=== PATIENT | male | born 1945 | race Caucasian/White ===

== ENCOUNTER 2020-01-04 08:01 | Outpatient (REF) | payer MEDICARE, SELFPAY ==
[2020-01-11 15:27] LABS: Testosterone, Total 884 ng/dL (250-1100)
== END 2020-01-04 08:02 | disposition home or self-care (01) ==
LOC: HO.LAB 08:01
PROVIDERS: PCP Internal Medicine; Visit Provider Urology
DX: E29.1 Testicular hypofunction (principal)
CPT/HCPCS: 84403; 85610; 99211

== ENCOUNTER → 2020-01-24 09:02 | Outpatient (BNVA) | payer MEDICARE, SELFPAY | PROVIDERS: PCP Internal Medicine; Visit Provider Internal Medicine | DX: I48.20 Chronic atrial fibrillation, unspecified (principal); Z51.81 Encounter for therapeutic drug level monitoring; Z79.01 Long term (current) use of anticoagulants | CPT/HCPCS: 85610; 99211 ==

== ENCOUNTER → 2020-02-21 09:56 | Outpatient (BNVA) | payer MEDICARE, SELFPAY | PROVIDERS: PCP Internal Medicine; Visit Provider Internal Medicine | DX: I48.20 Chronic atrial fibrillation, unspecified (principal); Z51.81 Encounter for therapeutic drug level monitoring; Z79.01 Long term (current) use of anticoagulants | CPT/HCPCS: 85610; 99211 ==

== ENCOUNTER → 2020-03-13 09:18 | Outpatient (BNVA) | payer MEDICARE, SELFPAY | PROVIDERS: PCP Internal Medicine; Visit Provider Internal Medicine | DX: I48.91 Unspecified atrial fibrillation (principal); Z79.01 Long term (current) use of anticoagulants; Z51.81 Encounter for therapeutic drug level monitoring | CPT/HCPCS: 85610; 99211; 99212 ==

== ENCOUNTER → 2020-03-30 09:14 | Outpatient (BNVA) | payer MEDICARE, SELFPAY | PROVIDERS: PCP Internal Medicine; Visit Provider Internal Medicine Cardiovascular Disease | DX: I50.30 Unspecified diastolic (congestive) heart failure (principal); I48.0 Paroxysmal atrial fibrillation | CPT/HCPCS: 93005; 99212 ==

== ENCOUNTER → 2020-04-03 08:08 | Outpatient (BNVA) | payer MEDICARE, SELFPAY | PROVIDERS: PCP Family Medicine; Visit Provider Internal Medicine | DX: I48.20 Chronic atrial fibrillation, unspecified (principal); Z51.81 Encounter for therapeutic drug level monitoring; Z79.01 Long term (current) use of anticoagulants | CPT/HCPCS: 85610; 99211 ==

== ENCOUNTER → 2020-04-12 11:13 | Outpatient (BNVA) | payer MEDICARE, SELFPAY | PROVIDERS: PCP Family Medicine; Visit Provider Urology | DX: E29.1 Testicular hypofunction (principal) | CPT/HCPCS: 99212 ==

== ENCOUNTER → 2020-05-15 08:00 | Outpatient (BNVA) | payer MEDICARE, SELFPAY | PROVIDERS: PCP Family Medicine; Visit Provider Internal Medicine | DX: I48.20 Chronic atrial fibrillation, unspecified (principal); Z51.81 Encounter for therapeutic drug level monitoring; Z79.01 Long term (current) use of anticoagulants | CPT/HCPCS: 85610; 99211 ==

== ENCOUNTER → 2020-06-12 08:25 | Outpatient (BNVA) | payer MEDICARE, SELFPAY | PROVIDERS: Visit Provider Internal Medicine | DX: I48.20 Chronic atrial fibrillation, unspecified (principal); Z51.81 Encounter for therapeutic drug level monitoring; Z79.01 Long term (current) use of anticoagulants | CPT/HCPCS: 85610; 99211 ==

== ENCOUNTER 2020-06-22 09:53 | Outpatient (REF) | payer MEDICARE, SELFPAY ==
[2020-06-22 10:46] LABS: MANUAL DIFF FLAG NO
[2020-06-22 11:02] LABS: Basophils Percent Auto 0.4 % (0-2); Eosinophils Absolute Auto 0.3 X10*3/uL (0.0-0.4); Eosinophils Percent Auto 3.1 % (0-4); Hematocrit 46.4 % (42-52); Hemoglobin 15.6 g/dl (14.0-18.0); Imm Gran Abs Auto 0.04 X10*3/uL (0.00-0.03); Imm Gran Pct Auto 0.5 % (0.0-0.4); Lymphocytes Absolute Auto 2.9 X10*3/uL (1.2-4.9); Mean Corpuscular HGB Conc 33.6 g/dl (31.0-36.0); Mean Corpuscular Hemoglobin 31.6 pg (27.0-33.0); Mean Corpuscular Volume 94.1 fL (80-98); Mean Platelet Volume 11.5 fL (9.4-12.4); Monocytes Absolute Auto 0.5 X10*3/uL (0.1-1.2); Monocytes Percent Auto 6.5 % (2-11); Neutrophils Absolute Auto 4.3 X10*3/uL (2.0-8.3); Neutrophils Percent Auto 53.5 % (45-73); Platelet Count 173 X10*3/uL (160-400); Red Blood Count 4.93 X10*6/uL (4.60-5.80); Red Cell Distribution Width 11.9 % (11.0-16.0)
[2020-06-22 11:18] LABS: Alanine Aminotransferase 31 U/L (0-40); Albumin Level 4.1 g/dL (3.5-5.0); Alkaline Phosphatase 40 U/L (39-117); Anion Gap 11 (12-20); Aspartate Amino Transferase 24 U/L (5-37); Bilirubin Total 0.9 mg/dL (0.0-1.0); Blood Urea Nitrogen 12 mg/dL (9-16); Calcium 9.1 mg/dL (8.4-10.2); Carbon Dioxide 28 mmol/L (22-29); Chloride 105 mmol/L (96-108); Estimated Glomerular Filt Rate > 60; Glucose Random 108 mg/dL (60-115); Potassium 4.7 mmol/L (3.3-5.1); Sodium 139 mmol/L (135-145); Total Protein 6.6 g/dL (6.5-8.0)
== END 2020-06-22 09:54 | disposition home or self-care (01) ==
LOC: HO.LAB 09:53
PROVIDERS: PCP Internal Medicine; Visit Provider Internal Medicine
DX: I10 Essential (primary) hypertension (principal); M19.90 Unspecified osteoarthritis, unspecified site
CPT/HCPCS: 36415; 80053; 85025

== ENCOUNTER → 2020-07-10 09:19 | Outpatient (BNVA) | payer MEDICARE, SELFPAY | PROVIDERS: PCP Internal Medicine; Visit Provider Internal Medicine | DX: I48.20 Chronic atrial fibrillation, unspecified (principal); Z79.01 Long term (current) use of anticoagulants; Z51.81 Encounter for therapeutic drug level monitoring | CPT/HCPCS: 85610; 99211 ==

== ENCOUNTER → 2020-08-07 09:09 | Outpatient (BNVA) | payer MEDICARE, SELFPAY | PROVIDERS: PCP Internal Medicine; Visit Provider Internal Medicine | DX: I48.20 Chronic atrial fibrillation, unspecified (principal); Z51.81 Encounter for therapeutic drug level monitoring; Z79.01 Long term (current) use of anticoagulants | CPT/HCPCS: 85610; 99211 ==

== ENCOUNTER → 2020-09-05 08:08 | Outpatient (BNVA) | payer MEDICARE, SELFPAY | PROVIDERS: PCP Internal Medicine; Visit Provider Internal Medicine | DX: I48.20 Chronic atrial fibrillation, unspecified (principal); Z51.81 Encounter for therapeutic drug level monitoring; Z79.01 Long term (current) use of anticoagulants | CPT/HCPCS: 85610; 99211 ==

== ENCOUNTER → 2020-09-20 09:08 | Outpatient (REF) | payer MEDICARE, SELFPAY ==
--- NOTE | ~2020-09-20 | XR_ITS ---
EXAMINATION: XR CHEST 2 VIEWS CLINICAL INFORMATION: Paroxysmal atrial fibrillation. COMPARISON: Chest radiographs dated 12/27/2018. TECHNIQUE: Frontal and lateral views of the chest were obtained. FINDINGS: The heart, great vessels, pulmonary vasculature and mediastinum are normal. The lungs show no focal infiltrate, effusion or pneumothorax. There is no acute osseous abnormality. There is multi-level thoracic spondylosis. XR/XR chest 2V IMPRESSION: No active cardiopulmonary disease.
--- NOTE | 2020-09-20 09:39 | CA_ITS ---
Transthoracic Echocardiogram Patient (Last, First, Middle): Wesley Berg E Gender: Male Date of : 1945 Age: 75 Procedure Date: 09/20/2020 Procedure Type: Transthoracic Echocardiogram Location: OP Height: 170.18 cm Weight: 99.79 kg BSA: 2.11 m2 Heart Rate: bpm BP: 120 / 90 mmHg Air Control Electronics Operator: KAT Referring MD: Jose De Jesus Vicente MD Shelter Monitor: Jose De Jesus Vicente MD Symptoms: I50.30 - Unspecified diastolic (congestive) heart failure Study Quality: Good ECG Rhythm: Sinus Conclusions: - 1. Normal LV systolic function with pseudonormal filling pattern 2. Mild mitral regurgitation and trace aortic regurgitation 3. Normal RV systolic pressure 4. No pericardial effusion Findings Left Ventricle Normal left ventricular size, thickness, and systolic function. The visually estimated ejection fraction is between 60-65%. Spectral Doppler is indicative of a pseudonormal filling pattern. E/E prime ratio is between 8 and 15 consistent with indeterminate filling pressures. Right Ventricle Normal right ventricular cavity size and systolic function. Atria The left atrium is likely dilated. There is lipomatous hypertrophy of the interatrial septum. There is no evidence of interatrial shunt. The right atrium is normal in size. Aortic Valve There is mild calcification of the aortic valve. There is no aortic valve stenosis. There is trace (trivial) aortic valve regurgitation. Mitral Valve There is mild anterior and posterior mitral leaflet thickening. There is mild mitral annular calcification. There is mild mitral valve regurgitation. There is no mitral valve stenosis. Pulmonic Valve The pulmonic valve is likely normal. There is trace to mild pulmonic valve regurgitation. Tricuspid Valve Normal tricuspid valve structure. There is mild tricuspid valve regurgitation. The right ventricular systolic pressure is normal. The right ventricular systolic pressure is 28 mmHg. Normal right atrial pressure. There is no evidence of pulmonary hypertension. Great Vessels All visible segments of the aorta are normal in size. The pulmonary artery was not well visualized. Small plaque is seen in the sino tubular ridge. Venous The inferior vena cava is normal in size and collapses greater than 50% with inspiration. Pericardium/Pleural There is no evidence of pericardial effusion. Prior Study Comparison No significant change compared to prior study dated: 12/18/2017. Measurements 2D Linear Measurements IVSd: 1.06 0.6-0.9/0.6-1.0 cm LVIDd: 4.69 3.9-5.3/4.2-5.9 cm LVIDd Index: 2.22 2.4-3.2/2.2-3.1 cm/m2 LVIDs: 3.28 2.0-3.6 cm LVPWd: 1.07 0.7-1.1 cm Ao Root: 3.30 2.1-3.5 cm LA Diam: 4.20 2.7-3.8/3.0-4.0 cm LAIDs Index: 1.99 1.5-2.3 cm/m2 LV Mass: 222.61 67-162/88-224 g LV Mass Index: 105.50 43-95/49-115 g/m2 LVOT Diam: 2.00 3.0+(-)1.3 cm 2D Systolic Function EF 4C: 63.50 >55% EF 2C: 59.50 >55% EF BiP: 60.70 >55% Mitral Valve MV Pk E: 0.79 MV PK A: 0.36 MV Decel Time: 404.00 E/A: 2.20 E'Lateral: 7.94 E'Medial: 5.44 E/E' Med: 14.50 E/E' Lat: 9.90 PHT: 118.00 MVA PHT: 1.86 Decel [place]: 1.95 Aortic Valve AoV Pk Sonu: 1.23 AoV Mn Sonu: 0.79 AoV VTI: 0.29 AoV Pk Grad: 6.00 Aov Mn Grad: 3.00 KIMBERLY Cont.VTI: 2.43 LVOT LVOT Pk Sonu: 1.03 LVOT Mn Sonu: 0.63 LVOT VTI: 0.22 LVOT Pk Grad: 4.00 LVOT Mn Grad: 2.00 LVOT Diam: 2.00 LVOT Area: 3.14 Diastolic Function MV Pk E: 0.79 MV Pk A: 0.36 E/A: 2.20 E'Medial: 5.44 E/E' Med: 14.50 E' Laterial: 7.94 E/E' Lat: 9.90 Tricuspid Valve TR Pk Sonu: 2.52 TR Pk Grad: 25.00 RA Press: 3.00 RVSP: 28.00 Great Vessels Aorta Ao Root-2D: 3.30 2.0-3.7 cm Ao Asc: 3.60 2.1-3.4 cm Ao Arch: 2.30 Updated in Other Vendor System with Status of Final Jose De Jesus Vicente MD electronically signed on 09/21/2020 12:09:43 PM with status of Final
[2020-09-20 10:20] LABS: Hematocrit 47.1 % (42-52); Hemoglobin 15.7 g/dl (14.0-18.0); Mean Corpuscular HGB Conc 33.3 g/dl (31.0-36.0); Mean Corpuscular Hemoglobin 31.2 pg (27.0-33.0); Mean Corpuscular Volume 93.5 fL (80-98); Mean Platelet Volume 11.6 fL (9.4-12.4); Platelet Count 157 X10*3/uL (160-400); Red Blood Count 5.04 X10*6/uL (4.60-5.80); Red Cell Distribution Width 12.2 % (11.0-16.0)
[2020-09-20 10:39] LABS: Alanine Aminotransferase 28 U/L (0-40); Albumin Level 4.3 g/dL (3.5-5.0); Alkaline Phosphatase 45 U/L (39-117); Anion Gap 11 (12-20); Aspartate Amino Transferase 22 U/L (5-37); Bilirubin Direct 0.6 mg/dL (0.0-0.5); Bilirubin Total 1.6 mg/dL (0.0-1.0); Blood Urea Nitrogen 13 mg/dL (9-16); Calcium 9.7 mg/dL (8.4-10.2); Carbon Dioxide 29 mmol/L (22-29); Chloride 105 mmol/L (96-108); Estimated Glomerular Filt Rate > 60; Glucose Random 110 mg/dL (60-115); Potassium 4.5 mmol/L (3.3-5.1); Sodium 140 mmol/L (135-145); Total Protein 6.7 g/dL (6.5-8.0)
[2020-09-20 10:50] LABS: PSA,Total (Free>4and<10) 1.41 ng/mL (0.00-4.00)
[2020-09-20 11:26] LABS: TSH reflex Free T4 1.57 uIU/mL (0.32-4.0)
[2020-09-25 11:32] LABS: Testosterone, Total 1741 ng/dL (250-1100)
== END ==
LOC: HO.CARD 09:08
PROVIDERS: PCP Internal Medicine; Referring Provider Urology; Visit Provider Internal Medicine Cardiovascular Disease
DX: Z12.5 Encounter for screening for malignant neoplasm of prostate (principal); I11.0 Hypertensive heart disease with heart failure; I50.30 Unspecified diastolic (congestive) heart failure; I48.0 Paroxysmal atrial fibrillation; N40.1 Benign prostatic hyperplasia with lower urinary tract symptoms; N13.8 Other obstructive and reflux uropathy; E29.1 Testicular hypofunction
CPT/HCPCS: 36415; 71046; 80048; 80076; 84153; 84403; 84443; 85027; 93306

== ENCOUNTER → 2020-09-27 08:51 | Outpatient (BNVA) | payer MEDICARE, SELFPAY | PROVIDERS: PCP Internal Medicine; Referring Provider Internal Medicine; Visit Provider Internal Medicine Cardiovascular Disease | DX: I50.30 Unspecified diastolic (congestive) heart failure (principal); I48.0 Paroxysmal atrial fibrillation | CPT/HCPCS: 93005; 99212 ==

== ENCOUNTER → 2020-10-03 08:04 | Outpatient (BNVA) | payer MEDICARE, SELFPAY | PROVIDERS: PCP Internal Medicine; Visit Provider Internal Medicine | DX: I48.20 Chronic atrial fibrillation, unspecified (principal); Z51.81 Encounter for therapeutic drug level monitoring; Z79.01 Long term (current) use of anticoagulants | CPT/HCPCS: 85610; 99211 ==

== ENCOUNTER → 2020-11-13 08:18 | Outpatient (BNVA) | payer MEDICARE, SELFPAY | PROVIDERS: PCP Internal Medicine; Visit Provider Internal Medicine | DX: I48.20 Chronic atrial fibrillation, unspecified (principal); Z51.81 Encounter for therapeutic drug level monitoring; Z79.01 Long term (current) use of anticoagulants | CPT/HCPCS: 85610; 99211 ==

== ENCOUNTER 2020-12-03 10:22 | Outpatient (REF) | payer MEDICARE, SELFPAY ==
[2020-12-03 12:30] LABS: Prostate Specific Antigen 0.99 ng/mL (<0.05-4.0)
[2020-12-07 22:26] LABS: Testosterone, Free 126.1 pg/mL (30.0-135.0); Testosterone, Total 592 ng/dL (250-1100)
== END 2020-12-03 10:23 | disposition home or self-care (01) ==
LOC: HO.LAB 10:22
PROVIDERS: PCP Internal Medicine; Visit Provider Urology
DX: Z12.5 Encounter for screening for malignant neoplasm of prostate (principal); N39.43 Post-void dribbling; E29.1 Testicular hypofunction; N40.1 Benign prostatic hyperplasia with lower urinary tract symptoms
CPT/HCPCS: 36415; 84153; 84402; 84403

== ENCOUNTER → 2020-12-11 08:29 | Outpatient (BNVA) | payer MEDICARE, SELFPAY | PROVIDERS: PCP Internal Medicine; Visit Provider Internal Medicine | DX: I48.20 Chronic atrial fibrillation, unspecified (principal); Z51.81 Encounter for therapeutic drug level monitoring; Z79.01 Long term (current) use of anticoagulants | CPT/HCPCS: 85610; 99211 ==

== ENCOUNTER → 2020-12-13 09:03 | Outpatient (BNVA) | payer MEDICARE, SELFPAY | PROVIDERS: PCP Internal Medicine; Visit Provider Urology | DX: E29.1 Testicular hypofunction (principal) | CPT/HCPCS: 99212 ==

== ENCOUNTER 2020-12-22 08:55 | Outpatient (REF) | payer MEDICARE, SELFPAY ==
[2020-12-22 09:14] LABS: MANUAL DIFF FLAG NO
[2020-12-22 10:32] LABS: Basophils Absolute Auto 0.1 X10*3/uL (0.0-0.2); Basophils Percent Auto 0.5 % (0-2); Eosinophils Absolute Auto 0.4 X10*3/uL (0.0-0.4); Eosinophils Percent Auto 3.8 % (0-4); Hematocrit 46.3 % (42-52); Hemoglobin 15.8 g/dl (14.0-18.0); Imm Gran Abs Auto 0.06 X10*3/uL (0.00-0.03); Imm Gran Pct Auto 0.6 % (0.0-0.4); Lymphocytes Absolute Auto 3.3 X10*3/uL (1.2-4.9); Lymphocytes Percent Auto 34.1 % (20-40); Mean Corpuscular HGB Conc 34.1 g/dl (31.0-36.0); Mean Corpuscular Hemoglobin 31.2 pg (27.0-33.0); Mean Corpuscular Volume 91.3 fL (80-98); Mean Platelet Volume 11.5 fL (9.4-12.4); Monocytes Absolute Auto 0.7 X10*3/uL (0.1-1.2); Monocytes Percent Auto 7.1 % (2-11); Neutrophils Absolute Auto 5.1 X10*3/uL (2.0-8.3); Neutrophils Percent Auto 53.9 % (45-73); Platelet Count 179 X10*3/uL (160-400); Red Blood Count 5.07 X10*6/uL (4.60-5.80); Red Cell Distribution Width 12.1 % (11.0-16.0); White Blood Count 9.5 X10*3/uL (4.8-10.8)
[2020-12-22 10:34] LABS: Alanine Aminotransferase 30 U/L (0-40); Albumin Level 4.3 g/dL (3.5-5.0); Alkaline Phosphatase 40 U/L (39-117); Anion Gap 12 (12-20); Aspartate Amino Transferase 25 U/L (5-37); Bilirubin Total 1.9 mg/dL (0.0-1.0); Blood Urea Nitrogen 12 mg/dL (9-16); Calcium 9.7 mg/dL (8.4-10.2); Carbon Dioxide 29 mmol/L (22-29); Chloride 104 mmol/L (96-108); Cholesterol 125 mg/dL; Estimated Glomerular Filt Rate > 60; Glucose Random 115 mg/dL (60-115); HDL Cholesterol 33 mg/dL; LDL Cholesterol Calculated 53 mg/dl; Potassium 4.1 mmol/L (3.3-5.1); Sodium 141 mmol/L (135-145); Total Protein 6.7 g/dL (6.5-8.0); Triglycerides 199 mg/dL
[2020-12-22 10:56] LABS: Prostate Specific Antigen Scr 1.49 ng/mL (<0.05-4.0)
== END 2020-12-22 08:56 | disposition home or self-care (01) ==
LOC: HO.LAB 08:55
PROVIDERS: PCP Internal Medicine; Visit Provider Internal Medicine
DX: I48.0 Paroxysmal atrial fibrillation (principal); I10 Essential (primary) hypertension; E78.00 Pure hypercholesterolemia, unspecified; Z12.5 Encounter for screening for malignant neoplasm of prostate
CPT/HCPCS: 36415; 80053; 80061; 84153; 85025

== ENCOUNTER 2021-01-01 10:31 | Outpatient (REF) | payer MEDICARE, SELFPAY ==
--- NOTE | ~2021-01-01 | XR_ITS ---
EXAMINATION: XR SHOULDER, LEFT CLINICAL INFORMATION: Left shoulder pain. COMPARISON: None TECHNIQUE: AP external rotation, Grashey, scapular Y, and axillary views of the left shoulder. FINDINGS: Superior subluxation of the humeral head indicating an underlying rotator cuff tendon tear. Severe glenohumeral joint space narrowing with subchondral cirrhosis, mild bony remodeling, and subchondral cystic change. Large marginal osteophytes. Moderate acromioclavicular marginal osteophytes with subacromial spurring. No acute fracture. XR/XR shoulder LT min 2V IMPRESSION: 1. Superior subluxation of the humeral head indicating an underlying rotator cuff tendon tear. 2. Severe glenohumeral osteoarthritis. 3. Moderate acromioclavicular osteoarthritis with subacromial spurring.
== END 2021-01-01 10:32 | disposition home or self-care (01) ==
LOC: HO.XRAY 10:31
PROVIDERS: PCP Internal Medicine; Visit Provider Internal Medicine
DX: M25.512 Pain in left shoulder (principal)
CPT/HCPCS: 73030

== ENCOUNTER → 2021-01-21 09:50 | Outpatient (BNVA) | payer MEDICARE, SELFPAY | PROVIDERS: Visit Provider Orthopaedic Surgery | DX: I48.0 Paroxysmal atrial fibrillation (principal); M19.012 Primary osteoarthritis, left shoulder; M65.30 Trigger finger, unspecified finger; Z79.01 Long term (current) use of anticoagulants | CPT/HCPCS: 99202 ==

== ENCOUNTER → 2021-01-22 08:01 | Outpatient (BNVA) | payer MEDICARE, SELFPAY | PROVIDERS: PCP Internal Medicine; Visit Provider Internal Medicine | DX: I48.20 Chronic atrial fibrillation, unspecified (principal); Z51.81 Encounter for therapeutic drug level monitoring; Z79.01 Long term (current) use of anticoagulants | CPT/HCPCS: 85610; 99211 ==

== ENCOUNTER → 2021-02-19 08:02 | Outpatient (BNVA) | payer MEDICARE, SELFPAY | PROVIDERS: PCP Internal Medicine; Visit Provider Internal Medicine | DX: I48.20 Chronic atrial fibrillation, unspecified (principal); Z51.81 Encounter for therapeutic drug level monitoring; Z79.01 Long term (current) use of anticoagulants | CPT/HCPCS: 85610; 99211 ==

== ENCOUNTER 2021-03-13 11:05 | Outpatient (REF) | payer MEDICARE, SELFPAY ==
[2021-03-13 12:10] LABS: Estimated Average Glucose 120 mg/dL; Hemoglobin A1c % 5.8 %
[2021-03-13 12:27] LABS: Anion Gap 10 (12-20); Blood Urea Nitrogen 14 mg/dL (9-16); Calcium 9.8 mg/dL (8.4-10.2); Carbon Dioxide 30 mmol/L (22-29); Chloride 106 mmol/L (96-108); Estimated Glomerular Filt Rate > 60; Glucose Random 107 mg/dL (60-115); Potassium 4.2 mmol/L (3.3-5.1); Sodium 142 mmol/L (135-145)
== END 2021-03-13 11:06 | disposition home or self-care (01) ==
LOC: HO.LAB 11:05
PROVIDERS: PCP Internal Medicine; Visit Provider Internal Medicine
DX: R73.03 Prediabetes (principal)
CPT/HCPCS: 36415; 80048; 83036

== ENCOUNTER → 2021-03-19 08:00 | Outpatient (BNVA) | payer MEDICARE, SELFPAY | PROVIDERS: PCP Internal Medicine; Visit Provider Internal Medicine | DX: I48.20 Chronic atrial fibrillation, unspecified (principal); Z51.81 Encounter for therapeutic drug level monitoring; Z79.01 Long term (current) use of anticoagulants | CPT/HCPCS: 85610; 99211 ==

== ENCOUNTER → 2021-03-29 10:59 | Outpatient (BNVA) | payer MEDICARE, SELFPAY | PROVIDERS: PCP Internal Medicine; Visit Provider Orthopaedic Surgery | DX: M12.812 Other specific arthropathies, not elsewhere classified, left shoulder (principal) | CPT/HCPCS: 20610; 99212; J1100 ==

== ENCOUNTER → 2021-04-02 07:59 | Outpatient (BNVA) | payer MEDICARE, SELFPAY | PROVIDERS: PCP Internal Medicine; Visit Provider Internal Medicine | DX: I50.30 Unspecified diastolic (congestive) heart failure (principal); I48.20 Chronic atrial fibrillation, unspecified; I48.0 Paroxysmal atrial fibrillation; Z51.81 Encounter for therapeutic drug level monitoring; Z79.01 Long term (current) use of anticoagulants; Z79.899 Other long term (current) drug therapy | CPT/HCPCS: 85610; 93005; 99211; 99212 ==

== ENCOUNTER → 2021-04-22 10:34 | Outpatient (BNVA) | payer MEDICARE, SELFPAY | PROVIDERS: PCP Internal Medicine; Visit Provider Orthopaedic Surgery | DX: M12.812 Other specific arthropathies, not elsewhere classified, left shoulder (principal) | CPT/HCPCS: 20610; 99212; J1100 ==

== ENCOUNTER → 2021-04-30 08:13 | Outpatient (BNVA) | payer MEDICARE, SELFPAY | PROVIDERS: PCP Internal Medicine; Visit Provider Internal Medicine | DX: I48.20 Chronic atrial fibrillation, unspecified (principal); Z51.81 Encounter for therapeutic drug level monitoring; Z79.01 Long term (current) use of anticoagulants | CPT/HCPCS: 85610; 99211 ==

== ENCOUNTER 2021-05-28 08:44 | Outpatient (REF) | payer MEDICARE, SELFPAY ==
[2021-05-28 10:03] LABS: MANUAL DIFF FLAG NO
[2021-05-28 10:46] LABS: Basophils Percent Auto 0.4 % (0-2); Eosinophils Absolute Auto 0.3 X10*3/uL (0.0-0.4); Hematocrit 44.8 % (42.0-52.0); Hemoglobin 14.8 g/dl (14.0-18.0); Imm Gran Abs Auto 0.03 X10*3/uL (0.00-0.03); Imm Gran Pct Auto 0.4 % (0.0-0.4); Lymphocytes Absolute Auto 3.2 X10*3/uL (1.2-4.9); Lymphocytes Percent Auto 38.4 % (20-40); Mean Corpuscular Hemoglobin 31.1 pg (27.0-33.0); Mean Corpuscular Volume 94.1 fL (80.0-98.0); Mean Platelet Volume 11.4 fL (9.4-12.4); Monocytes Absolute Auto 0.5 X10*3/uL (0.1-1.2); Monocytes Percent Auto 6.3 % (2-11); Neutrophils Absolute Auto 4.2 x10*3/uL (2.0-8.3); Neutrophils Percent Auto 51.5 % (45-73); Platelet Count 170 X10*3/uL (160-400); Red Blood Count 4.76 X10*6/uL (4.60-5.80); Red Cell Distribution Width 11.9 % (11.0-16.0); White Blood Count 8.2 X10*3/uL (4.8-10.8)
[2021-05-28 10:51] LABS: INTERNATIONAL NORM RATIO 2.1 (0.9-1.1); Prothrombin Time 24.7 SEC (9.9-13.0)
[2021-05-28 11:20] LABS: Alanine Aminotransferase 43 U/L (0-40); Albumin Level 4.1 g/dL (3.5-5.0); Alkaline Phosphatase 39 U/L (39-117); Anion Gap 11 (12-20); Aspartate Amino Transferase 27 U/L (5-37); Bilirubin Total 1.3 mg/dL (0.0-1.0); Blood Urea Nitrogen 13 mg/dL (9-16); Calcium 9.4 mg/dL (8.4-10.2); Carbon Dioxide 30 mmol/L (22-29); Chloride 106 mmol/L (96-108); Estimated Glomerular Filt Rate > 60; Glucose Random 113 mg/dL (60-115); Potassium 4.6 mmol/L (3.3-5.1); Sodium 142 mmol/L (135-145); Total Protein 6.5 g/dL (6.5-8.0)
== END 2021-05-28 08:45 | disposition home or self-care (01) ==
LOC: HO.LAB 08:44
PROVIDERS: Absent Provider Internal Medicine; PCP Internal Medicine; Visit Provider Internal Medicine
DX: I48.0 Paroxysmal atrial fibrillation (principal); I10 Essential (primary) hypertension; K21.9 Gastro-esophageal reflux disease without esophagitis; E78.5 Hyperlipidemia, unspecified; Z51.81 Encounter for therapeutic drug level monitoring; Z79.01 Long term (current) use of anticoagulants
CPT/HCPCS: 36415; 80053; 85025; 85610; 99211

== ENCOUNTER 2021-06-04 10:46 | Outpatient (REF) | payer MEDICARE, SELFPAY ==
[2021-06-04 12:20] LABS: Hematocrit 44.5 % (42.0-52.0); Hemoglobin 15.3 g/dl (14.0-18.0); Mean Corpuscular HGB Conc 34.4 g/dl (31.0-36.0); Mean Corpuscular Hemoglobin 31.7 pg (27.0-33.0); Mean Corpuscular Volume 92.3 fL (80.0-98.0); Mean Platelet Volume 11.9 fL (9.4-12.4); Platelet Count 169 X10*3/uL (160-400); Red Blood Count 4.82 X10*6/uL (4.60-5.80); Red Cell Distribution Width 11.9 % (11.0-16.0); White Blood Count 9.1 X10*3/uL (4.8-10.8)
[2021-06-04 13:09] LABS: Prostate Specific Antigen 0.89 ng/mL (<0.05-4.0)
[2021-06-08 09:46] LABS: Testosterone, Total 705 ng/dL (250-1100)
== END 2021-06-04 10:47 | disposition home or self-care (01) ==
LOC: HO.LAB 10:46
PROVIDERS: PCP Internal Medicine; Visit Provider Urology
DX: Z12.5 Encounter for screening for malignant neoplasm of prostate (principal); E29.1 Testicular hypofunction
CPT/HCPCS: 36415; 84153; 84403; 85027

== ENCOUNTER → 2021-06-20 08:28 | Outpatient (BNVA) | payer MEDICARE, SELFPAY | PROVIDERS: PCP Internal Medicine; Visit Provider Urology | DX: E29.1 Testicular hypofunction (principal) | CPT/HCPCS: Q3014 ==

== ENCOUNTER → 2021-07-02 08:49 | Outpatient (BNVA) | payer MEDICARE, SELFPAY | PROVIDERS: PCP Internal Medicine; Visit Provider Internal Medicine | DX: I48.20 Chronic atrial fibrillation, unspecified (principal); Z51.81 Encounter for therapeutic drug level monitoring; Z79.01 Long term (current) use of anticoagulants | CPT/HCPCS: 85610; 99211 ==

== ENCOUNTER → 2021-07-30 08:53 | Outpatient (BNVA) | payer MEDICARE, SELFPAY | PROVIDERS: PCP Internal Medicine; Visit Provider Internal Medicine | DX: I48.20 Chronic atrial fibrillation, unspecified (principal); Z79.01 Long term (current) use of anticoagulants; Z51.81 Encounter for therapeutic drug level monitoring | CPT/HCPCS: 85610; 99211 ==

== ENCOUNTER → 2021-08-27 09:01 | Outpatient (BNVA) | payer MEDICARE, SELFPAY | PROVIDERS: PCP Internal Medicine; Visit Provider Internal Medicine | DX: I48.20 Chronic atrial fibrillation, unspecified (principal); Z79.01 Long term (current) use of anticoagulants; Z51.81 Encounter for therapeutic drug level monitoring | CPT/HCPCS: 85610; 99211 ==

== ENCOUNTER → 2021-09-24 09:08 | Outpatient (BNVA) | payer MEDICARE, SELFPAY | PROVIDERS: PCP Internal Medicine; Visit Provider Internal Medicine | DX: I48.20 Chronic atrial fibrillation, unspecified (principal); Z51.81 Encounter for therapeutic drug level monitoring; Z79.01 Long term (current) use of anticoagulants | CPT/HCPCS: 85610; 99211 ==

== ENCOUNTER → 2021-10-17 08:14 | Outpatient (REF) | payer MEDICARE, SELFPAY ==
--- NOTE | 2021-10-17 08:24 | CA_ITS ---
Transthoracic Echocardiogram Patient (Last, First, Middle): Wesley Berg E Gender: Male Date of : 1945 Age: 76 Procedure Date: 10/17/2021 Procedure Type: Transthoracic Echocardiogram Location: OP Height: 172.72 cm Weight: 95.26 kg BSA: 2.09 m2 Heart Rate: bpm BP: 120 / 80 mmHg Underwater Hunter: TO Referring MD: Jose De Jesus Vicente MD Symptoms: I50.30 - Unspecified diastolic (congestive) heart failure Study Quality: Fair ECG Rhythm: Sinus Conclusions: - The left ventricular systolic function is normal. The calculated ejection fraction is 57% by biplane method. - Evidence suggests grade III (severe) diastolic dysfunction. - There is mild mitral valve regurgitation. - There is mild tricuspid valve regurgitation. - Mild pulmonary hypertension is present. Findings Left Ventricle Normal left ventricular cavity size. The left ventricular systolic function is normal. The calculated ejection fraction is 57% by biplane method. There is no evidence of regional wall motion abnormalities. E/E prime ratio is between 8 and 15 consistent with indeterminate filling pressures. Evidence suggests grade III (severe) diastolic dysfunction. There is mild septal asymmetric hypertrophy. Right Ventricle Mildly increased right ventricular cavity size. There is normal right ventricular systolic function. Atria The left atrium is mildly dilated. The right atrium is normal in size. Aortic Valve There is a normal trileaflet aortic valve. There is no aortic valve stenosis. There is trace (trivial) aortic valve regurgitation. Mitral Valve There is mild mitral annular calcification. There is mild mitral valve regurgitation. There is no mitral valve stenosis. Pulmonic Valve The pulmonic valve is likely normal. Tricuspid Valve There is mild tricuspid valve regurgitation. The right ventricular systolic pressure is 38 mmHg. Mild pulmonary hypertension is present. Great Vessels The aortic annulus, sinuses of valsalva, and asc aorta are normal in size. Venous The inferior vena cava is normal in size and collapses greater than 50% with inspiration. Pericardium/Pleural There is no evidence of pericardial effusion. Prior Study Comparison Changes noted compared to prior study dated: 09/20/2020. See comments on diastolic dysfunction. Measurements 2D Linear Measurements IVSd: 1.15 0.6-0.9/0.6-1.0 cm LVIDd: 4.94 3.9-5.3/4.2-5.9 cm LVIDd Index: 2.36 2.4-3.2/2.2-3.1 cm/m2 LVIDs: 3.73 2.0-3.6 cm LVPWd: 0.97 0.7-1.1 cm LA Diam: 4.30 2.7-3.8/3.0-4.0 cm LAIDs Index: 2.06 1.5-2.3 cm/m2 LV Mass: 240.28 67-162/88-224 g LV Mass Index: 114.97 43-95/49-115 g/m2 LVOT Diam: 2.00 3.0+(-)1.3 cm 2D Systolic Function EF 4C: 52.40 >55% EF 2C: 59.00 >55% EF BiP: 56.50 >55% Mitral Valve MV Pk E: 0.98 MV PK A: 0.32 MV Decel Time: 225.00 E/A: 3.00 E'Lateral: 8.16 E'Medial: 6.31 E/E' Med: 15.50 E/E' Lat: 12.00 PHT: 66.00 MVA PHT: 3.33 Decel [place]: 4.34 Aortic Valve AoV Pk Sonu: 1.15 AoV Mn Sonu: 0.76 AoV VTI: 0.28 AoV Pk Grad: 5.00 Aov Mn Grad: 3.00 KIMBERLY Cont.VTI: 2.34 LVOT LVOT Pk Sonu: 0.87 LVOT Mn Sonu: 0.54 LVOT VTI: 0.21 LVOT Pk Grad: 3.00 LVOT Mn Grad: 1.00 LVOT Diam: 2.00 LVOT Area: 3.14 Diastolic Function MV Pk E: 0.98 MV Pk A: 0.32 E/A: 3.00 E'Medial: 6.31 E/E' Med: 15.50 E' Laterial: 8.16 E/E' Lat: 12.00 Right Ventricle TAPSE (mm): 21.70 TVS' Sonu: 11.50 Tricuspid Valve TR Pk Sonu: 2.94 TR Pk Grad: 35.00 RA Press: 3.00 RVSP: 38.00 Great Vessels Aorta Sinus of Valsalva: 3.32 2.0-3.[address] [place]: 2.71 1.7-3.4 cm Ao Asc: 3.70 2.1-3.4 cm Updated in Other Vendor System with Status of Final Parker Braxton MD electronically signed on 10/19/2021 11:58:23 AM with status of Final
== END ==
LOC: HO.CARD 08:14
PROVIDERS: Visit Provider Internal Medicine Cardiovascular Disease
DX: I50.30 Unspecified diastolic (congestive) heart failure (principal)
CPT/HCPCS: 93306

== ENCOUNTER → 2021-10-22 08:49 | Outpatient (BNVA) | payer MEDICARE, SELFPAY | PROVIDERS: PCP Internal Medicine; Visit Provider Internal Medicine | DX: I48.20 Chronic atrial fibrillation, unspecified (principal); Z79.01 Long term (current) use of anticoagulants; Z51.81 Encounter for therapeutic drug level monitoring | CPT/HCPCS: 85610; 99211 ==

== ENCOUNTER 2021-12-03 11:00 | Outpatient (REF) | payer MEDICARE, SELFPAY ==
[2021-12-03 13:39] LABS: MANUAL DIFF FLAG NO
[2021-12-03 13:52] LABS: Basophils Absolute Auto 0.1 X10*3/uL (0.0-0.2); Basophils Percent Auto 0.6 % (0-2); Eosinophils Absolute Auto 0.3 X10*3/uL (0.0-0.4); Eosinophils Percent Auto 4.2 % (0-4); Hematocrit 43.5 % (42.0-52.0); Hemoglobin 14.7 g/dl (14.0-18.0); Imm Gran Abs Auto 0.05 X10*3/uL (0.00-0.03); Imm Gran Pct Auto 0.6 % (0.0-0.4); Lymphocytes Absolute Auto 2.7 X10*3/uL (1.2-4.9); Lymphocytes Percent Auto 33.5 % (20-40); Mean Corpuscular HGB Conc 33.8 g/dl (31.0-36.0); Mean Corpuscular Hemoglobin 31.1 pg (27.0-33.0); Mean Platelet Volume 11.9 fL (9.4-12.4); Monocytes Absolute Auto 0.5 X10*3/uL (0.1-1.2); Monocytes Percent Auto 6.7 % (2-11); Neutrophils Absolute Auto 4.3 x10*3/uL (2.0-8.3); Neutrophils Percent Auto 54.4 % (45-73); Platelet Count 152 X10*3/uL (160-400); Red Blood Count 4.73 X10*6/uL (4.60-5.80); Red Cell Distribution Width 12.4 % (11.0-16.0); White Blood Count 7.9 X10*3/uL (4.8-10.8)
[2021-12-03 13:58] LABS: INTERNATIONAL NORM RATIO 2.1 (0.9-1.1); Prothrombin Time 24.6 SEC (10.0-13.1)
[2021-12-03 14:09] LABS: Alanine Aminotransferase 35 U/L (0-40); Albumin Level 4.1 g/dL (3.5-5.0); Alkaline Phosphatase 37 U/L (39-117); Anion Gap 14 (12-20); Aspartate Amino Transferase 28 U/L (5-37); Blood Urea Nitrogen 9 mg/dL (9-16); Carbon Dioxide 28 mmol/L (22-29); Chloride 105 mmol/L (96-108); Estimated Glomerular Filt Rate > 60; Glucose Fasting 112 mg/dL (60-99); Potassium 4.6 mmol/L (3.3-5.1); Sodium 142 mmol/L (135-145); Total Protein 6.5 g/dL (6.5-8.0)
[2021-12-03 14:32] LABS: Thyroid Stimulating Hormone 1.77 uIU/mL (0.32-4.0)
[2021-12-03 14:54] LABS: Vitamin B12 420 pg/mL (200-900)
== END 2021-12-03 11:01 | disposition home or self-care (01) ==
LOC: HO.10HDL 11:00
PROVIDERS: Visit Provider Internal Medicine
DX: R53.83 Other fatigue (principal); I48.0 Paroxysmal atrial fibrillation; I10 Essential (primary) hypertension; K21.9 Gastro-esophageal reflux disease without esophagitis
CPT/HCPCS: 36415; 80053; 82607; 84439; 84443; 85025; 85610

== ENCOUNTER → 2021-12-05 08:57 | Outpatient (BNVA) | payer MEDICARE, SELFPAY | PROVIDERS: PCP Internal Medicine; Visit Provider Internal Medicine | DX: I48.20 Chronic atrial fibrillation, unspecified (principal); Z79.01 Long term (current) use of anticoagulants; Z51.81 Encounter for therapeutic drug level monitoring | CPT/HCPCS: 85610; 99211 ==

== ENCOUNTER 2021-12-09 12:49 | Outpatient (REF) | payer MEDICARE, SELFPAY ==
[2021-12-09 13:13] LABS: Hematocrit 45.1 % (42.0-52.0)
[2021-12-13 14:07] LABS: Testosterone, Total 630 ng/dL (250-1100)
== END 2021-12-09 12:50 | disposition home or self-care (01) ==
LOC: HO.LAB 12:49
PROVIDERS: PCP Internal Medicine; Visit Provider Urology
DX: Z12.5 Encounter for screening for malignant neoplasm of prostate (principal); N13.8 Other obstructive and reflux uropathy; N40.1 Benign prostatic hyperplasia with lower urinary tract symptoms; E29.1 Testicular hypofunction
CPT/HCPCS: 36415; 84153; 84403; 85014

== ENCOUNTER → 2021-12-20 08:33 | Outpatient (BNVA) | payer MEDICARE, SELFPAY | PROVIDERS: PCP Internal Medicine; Visit Provider Urology | DX: E29.1 Testicular hypofunction (principal); N39.43 Post-void dribbling; N40.0 Benign prostatic hyperplasia without lower urinary tract symptoms; Z79.899 Other long term (current) drug therapy | CPT/HCPCS: Q3014 ==

== ENCOUNTER → 2022-01-07 08:23 | Outpatient (BNVA) | payer MEDICARE, SELFPAY | PROVIDERS: PCP Internal Medicine; Visit Provider Internal Medicine | DX: I48.20 Chronic atrial fibrillation, unspecified (principal); Z79.01 Long term (current) use of anticoagulants; Z51.81 Encounter for therapeutic drug level monitoring | CPT/HCPCS: 85610; 99211 ==

== ENCOUNTER → 2022-01-09 10:25 | Outpatient (BNVA) | payer MEDICARE, SELFPAY | PROVIDERS: PCP Internal Medicine; Visit Provider Orthopaedic Surgery | DX: M12.811 Other specific arthropathies, not elsewhere classified, right shoulder (principal); M12.812 Other specific arthropathies, not elsewhere classified, left shoulder | CPT/HCPCS: 20610; 99212; J1100 ==

== ENCOUNTER → 2022-01-28 08:36 | Outpatient (BNVA) | payer MEDICARE, SELFPAY | PROVIDERS: PCP Internal Medicine; Visit Provider Internal Medicine | DX: I48.20 Chronic atrial fibrillation, unspecified (principal); Z79.01 Long term (current) use of anticoagulants; Z51.81 Encounter for therapeutic drug level monitoring | CPT/HCPCS: 85610; 99211 ==

== ENCOUNTER 2022-02-03 23:38 | Emergency (ER) | payer MEDICARE, SELFPAY ==
[2022-02-03 23:42] VITALS: BP 184/94; PULSE 73; RESP 17; TEMP 37.1; O2SAT 96; BMI 34.2
[2022-02-03 23:55] LABS: MANUAL DIFF FLAG NO
--- NOTE | 2022-02-03 23:55 | ED.EXTPRO ---
HPI - Extremity Problem General Chief complaint: Extremity Injury, Upper Stated complaint: on coumadin, cut thumb, Time Seen by Provider: 02/03/22 23:55 Source: patient Mode of arrival: ambulatory Limitations: no limitations History of Present Illness HPI Narrative: Patient on Coumadin for atrial fibrillation came here for oozing from the biopsy site on the nose and small piece of wood fell on his right thumb and oozing from that too. It has been going on for last few hours patient tried to put pressure without significant relief no bleeding from any other place last INR was 2.2 on 01/28 Related Data Home Medications Medication Instructions Recorded Confirmed amiodarone 100 mg tablet 100 mg PO DAILY 03/13/20 12/20/21 gemfibrozil 600 mg tablet 600 mg PO BID 03/13/20 12/20/21 losartan 50 mg tablet 50 mg PO DAILY 03/13/20 12/20/21 metoprolol succinate 100 mg 100 mg PO DAILY 03/13/20 12/20/21 tablet,extended release 24 hr zolpidem 10 mg tablet 10 mg PO BEDTIME PRN 03/13/20 12/20/21 furosemide 40 mg tablet 40 mg PO DAILY 09/27/20 12/20/21 Previous Rx's Medication Instructions Recorded warfarin 5 mg tablet 5 mg PO DAILY #90 tabs 01/04/20 potassium chloride 10 mEq 10 meq PO DAILY 90 days #90 tabs 03/13/20 tablet,extended release pantoprazole 40 mg tablet,delayed 40 mg PO DAILY #90 tabs 08/23/20 release atorvastatin 80 mg tablet 80 mg PO DAILY #90 tabs 11/04/20 tamsulosin 0.4 mg capsule 0.8 mg PO BEDTIME 90 days #180 caps 12/20/21 testosterone 20.25 mg/1.25 gram 1 pump topical .COMPLEX 28 days 12/20/21 (1.62 %) transdermal gel pump #75 grams Allergies Allergy/AdvReac Type Severity Reaction Status Date / Time fentanyl [FENTANYL] Allergy Severe ANAPHYLAXIS Verified 01/28/22 08:44 protamine [PROTAMINE] Allergy Severe ANAPHYLAXIS Verified 01/28/22 08:44 rocuronium [ROCURONIUM] Allergy Severe ANAPHYLAXIS Verified 01/28/22 08:44 sevoflurane [SEVOFLURANE] Allergy Severe ANAPHYLAXIS Verified 01/28/22 08:44 Review of Systems Review of Systems: Yes all other systems are reviewed and are negative PMFSH Past Medical History Medical History (HFpEF) heart failure with preserved ejection fraction Benign prostatic hyperplasia with post-void dribbling History of cardioversion HTN (hypertension) Hypogonadism in male Paroxysmal atrial fibrillation Surgical History History of cardiac radiofrequency ablation (RFA) History of penile implant Hx of colonoscopy Hx of endoscopy Family History Family History Father No problems noted. Mother CVD (cardiovascular disease) Heart murmur Social History Social History Advance Directives: No Advance Directives Information Provided: Yes Current occupational status: retired Current occupation: [employer] handed Physical Exam Vital Signs: Vital Signs: Last Vital Signs Temp 98.7 F 02/03/22 23:42 Pulse 73 02/03/22 23:42 Resp 17 02/03/22 23:42 BP 184/94 H 02/03/22 23:42 Pulse Ox 96 02/03/22 23:42 O2 Del Method 02/03/22 23:42 BMI result Body Mass Index 34.2 HEENT: Face images: 1. Small oozing wound at the site of the biopsy Extrem: Hand/finger images: 1. Media subungual hematoma with superficial skin flap at the base of the right thumb with minor oozing of blood Medications Administered Discontinued Medications Generic Name Dose Route Start Last Admin Trade Name Ianq PRN Reason Stop Dose Admin Silver Nitrate 3 appl 02/03/22 23:59 02/04/22 00:17 Silver Nitrate Applicator Stick..Ea. TOPICAL 02/04/22 00:00 3 appl ONCE ONE Administration MDM - Extremity (Nontraumatic) MDM Narrative Medical decision making narrative: Patient had small oozing wound on the nose which was cauterized using silver nitrate bleeding stopped Small right thumb subungual hematoma hole drill doing heat cautery and Surgicel was applied bleeding. Lab Data Result diagrams: 02/03/22 23:52 02/03/22 23:52 Labs: Lab Results 02/03/22 02/03/22 Range/Units 23:52 23:52 WBC 8.7 (4.8-10.8) X10*3/uL RBC 4.65 (4.60-5.80) X10*6/uL Hgb 14.6 (14.0-18.0) g/dl Hct 42.3 (42.0-52.0) % MCV 91.0 (80.0-98.0) fL MCH 31.4 (27.0-33.0) pg MCHC 34.5 (31.0-36.0) g/dl RDW 12.3 (11.0-16.0) % Plt Count 166 (160-400) X10*3/uL MPV 11.0 (9.4-12.4) fL Immature Gran % (Auto) 0.3 (0.0-0.4) % Neut % (Auto) 57.3 (45-73) % Lymph % (Auto) 31.4 (20-40) % [place] % (Auto) 7.2 (2-11) % Eos % (Auto) 3.1 (0-4) % Baso % (Auto) 0.7 (0-2) % Lymph # (Auto) 2.7 (1.2-4.9) X10*3/uL [place] # (Auto) 0.6 (0.1-1.2) X10*3/uL Eos # (Auto) 0.3 (0.0-0.4) X10*3/uL Baso # (Auto) 0.1 (0.0-0.2) X10*3/uL Abs Immat Gran (auto) 0.03 (0.00-0.03) X10*3/uL Absolute Neuts (auto) 5.0 (2.0-8.3) x10*3/uL Absolute Nucleated RBC 0.000 (0.0-0.012) X10*3/uL Nucleated RBC % (auto) 0.0 (0.0-0.2) /100WBC PT 26.3 H (10.0-13.1) SEC INR 2.2 H (0.9-1.1) Procedures Nail Trephination Location (finger): right Location (toes): first digit Sterile prep: betadine Method of drainage: nail cautery Procedure successful: Yes Patient tolerated procedure: No Complications Discharge Plan Discharge Clinical Impression: Hematoma, subungual, thumb, right, Bleeding Patient Disposition: Home, Self-Care Instructions: Acute Wounds (ED) Additional Instructions: Local care as advised Prescriptions: No Action potassium chloride 10 mEq tablet extended release 10 meq PO DAILY 90 Days Qty: 90 2RF pantoprazole 40 mg tablet,delayed release (DR/EC) 40 mg PO DAILY Qty: 90 0RF atorvastatin 80 mg tablet 80 mg PO DAILY Qty: 90 0RF warfarin 5 mg tablet 5 mg PO DAILY Qty: 90 0RF Protocol: Dose Management Condition: Thursday (Week One) Dose/Route: 2.5 mg Instruction: 0.5 x 5 mg tablets Condition: Thursday Dose/Route: 5 mg Instruction: 1 x 5 mg tablet Condition: Thursday Dose/Route: 2.5 mg Instruction: 0.5 x 5 mg tablets Condition: Thursday Dose/Route: 2.5 mg Instruction: 0.5 x 5 mg tablets Condition: Dose/Route: 2.5 mg Instruction: 0.5 x 5 mg tablets Condition: Thursday Dose/Route: 5 mg Instruction: 1 x 5 mg tablet Condition: Thursday Dose/Route: 2.5 mg Instruction: 0.5 x 5 mg tablets Condition: Thursday (Week Two) Dose/Route: 2.5 mg Instruction: 0.5 x 5 mg tablets Condition: Thursday Dose/Route: 5 mg Instruction: 1 x 5 mg tablet Condition: Thursday Dose/Route: 2.5 mg Instruction: 0.5 x 5 mg tablets Condition: Thursday Dose/Route: 2.5 mg Instruction: 0.5 x 5 mg tablets Condition: Dose/Route: 2.5 mg Instruction: 0.5 x 5 mg tablets Condition: Thursday Dose/Route: 5 mg Instruction: 1 x 5 mg tablet Condition: Thursday Dose/Route: 2.5 mg Instruction: 0.5 x 5 mg tablets Protocol Text: Adjustment Start Date: Thursday01/28/22 INR Value: 2.3 INR Date: 01/28/22 Recheck Date: 02/25/22 Additional Instructions: cont reg dosisng balance reds and greens call with any medication changes Rx Instructions: 5MGM X3 2.5MGM X4 amiodarone 100 mg tablet 100 mg PO DAILY zolpidem 10 mg tablet 10 mg PO BEDTIME PRN gemfibrozil 600 mg tablet 600 mg PO BID metoprolol succinate 100 mg tablet extended release 24 hr 100 mg PO DAILY losartan 50 mg tablet 50 mg PO DAILY furosemide 40 mg tablet 40 mg PO DAILY tamsulosin 0.4 mg capsule 0.8 mg PO BEDTIME 90 Days Qty: 180 1RF testosterone 20.25 mg/1.25 gram (1.62 %) gel in metered-dose pump 1 pump topical .COMPLEX 28 Days Qty: 75 5RF Rx Instructions: 1 pump topical one pump to one shoulder daily Interventions: ED Discharge Assessment Last Done: 02/04/22 00:20 Discharge Date/Time: 02/04/22 00:23
[2022-02-04 00:06] LABS: Basophils Absolute Auto 0.1 X10*3/uL (0.0-0.2); Basophils Percent Auto 0.7 % (0-2); Eosinophils Absolute Auto 0.3 X10*3/uL (0.0-0.4); Eosinophils Percent Auto 3.1 % (0-4); Hematocrit 42.3 % (42.0-52.0); Hemoglobin 14.6 g/dl (14.0-18.0); Imm Gran Abs Auto 0.03 X10*3/uL (0.00-0.03); Imm Gran Pct Auto 0.3 % (0.0-0.4); Lymphocytes Absolute Auto 2.7 X10*3/uL (1.2-4.9); Lymphocytes Percent Auto 31.4 % (20-40); Mean Corpuscular HGB Conc 34.5 g/dl (31.0-36.0); Mean Corpuscular Hemoglobin 31.4 pg (27.0-33.0); Monocytes Absolute Auto 0.6 X10*3/uL (0.1-1.2); Monocytes Percent Auto 7.2 % (2-11); Neutrophils Percent Auto 57.3 % (45-73); Platelet Count 166 X10*3/uL (160-400); Red Blood Count 4.65 X10*6/uL (4.60-5.80); Red Cell Distribution Width 12.3 % (11.0-16.0); White Blood Count 8.7 X10*3/uL (4.8-10.8)
[2022-02-04 00:16] LABS: INTERNATIONAL NORM RATIO 2.2 (0.9-1.1); Prothrombin Time 26.3 SEC (10.0-13.1)
[2022-02-04] MEDS: Silver Nitrate Applicator STICK..EA. 3 APPL TOPICAL (00:17)
[2022-02-04 00:30] LABS: Alanine Aminotransferase 28 U/L (0-40); Albumin Level 4.2 g/dL (3.5-5.0); Alkaline Phosphatase 43 U/L (39-117); Anion Gap 16 (12-20); Aspartate Amino Transferase 27 U/L (5-37); Blood Urea Nitrogen 12 mg/dL (9-16); Calcium 9.6 mg/dL (8.4-10.2); Carbon Dioxide 24 mmol/L (22-29); Chloride 106 mmol/L (96-108); Creatinine Clr Calc Pharmacy 91.5; Estimated Glomerular Filt Rate > 60; Glucose Random 109 mg/dL (60-115); Potassium 4.3 mmol/L (3.3-5.1); Sodium 142 mmol/L (135-145); Total Protein 6.8 g/dL (6.5-8.0)
== END 2022-02-04 00:23 | disposition home or self-care (01) ==
LOC: HO.ED 02-04 00:18
PROVIDERS: Emergency Provider Internal Medicine; PCP Internal Medicine
DX: S60.111A Contusion of right thumb with damage to nail, initial encounter (principal); X58.XXXA Exposure to other specified factors, initial encounter; Y93.9 Activity, unspecified; Y92.9 Unspecified place or not applicable; Y99.9 Unspecified external cause status; Z79.899 Other long term (current) drug therapy
CPT/HCPCS: 10140; 36415; 80053; 85025; 85610; 99282; 99283

== ENCOUNTER → 2022-02-25 09:03 | Outpatient (BNVA) | payer MEDICARE, SELFPAY | PROVIDERS: PCP Internal Medicine; Visit Provider Internal Medicine | DX: I48.20 Chronic atrial fibrillation, unspecified (principal); Z79.01 Long term (current) use of anticoagulants; Z51.81 Encounter for therapeutic drug level monitoring | CPT/HCPCS: 85610; 99211 ==

== ENCOUNTER → 2022-02-26 10:16 | Outpatient (BNVA) | payer MEDICARE, SELFPAY | PROVIDERS: PCP Internal Medicine; Visit Provider Urology | DX: N40.1 Benign prostatic hyperplasia with lower urinary tract symptoms (principal); N39.43 Post-void dribbling; E29.1 Testicular hypofunction | CPT/HCPCS: 99212 ==

== ENCOUNTER 2022-03-12 11:51 | Outpatient (REF) | payer MEDICARE, SELFPAY ==
[2022-03-12 13:39] LABS: MANUAL DIFF FLAG NO
[2022-03-12 13:42] LABS: Basophils Absolute Auto 0.1 X10*3/uL (0.0-0.2); Basophils Percent Auto 0.8 % (0-2); Eosinophils Absolute Auto 0.2 X10*3/uL (0.0-0.4); Eosinophils Percent Auto 2.5 % (0-4); Hematocrit 44.2 % (42.0-52.0); Hemoglobin 14.8 g/dl (14.0-18.0); Imm Gran Abs Auto 0.05 X10*3/uL (0.00-0.03); Imm Gran Pct Auto 0.6 % (0.0-0.4); Lymphocytes Absolute Auto 2.7 X10*3/uL (1.2-4.9); Lymphocytes Percent Auto 30.7 % (20-40); Mean Corpuscular HGB Conc 33.5 g/dl (31.0-36.0); Mean Corpuscular Hemoglobin 30.8 pg (27.0-33.0); Mean Corpuscular Volume 92.1 fL (80.0-98.0); Mean Platelet Volume 11.5 fL (9.4-12.4); Monocytes Absolute Auto 0.6 X10*3/uL (0.1-1.2); Monocytes Percent Auto 6.2 % (2-11); Neutrophils Absolute Auto 5.3 x10*3/uL (2.0-8.3); Neutrophils Percent Auto 59.2 % (45-73); Platelet Count 155 X10*3/uL (160-400); Red Cell Distribution Width 12.3 % (11.0-16.0); White Blood Count 8.9 X10*3/uL (4.8-10.8)
[2022-03-12 14:22] LABS: Erythrocyte Sedimentation Rate 5 MM/HR (0-15)
[2022-03-12 14:22] LABS: Alanine Aminotransferase 22 U/L (0-40); Alkaline Phosphatase 39 U/L (39-117); Anion Gap 12 (12-20); Aspartate Amino Transferase 21 U/L (5-37); Bilirubin Total 1.4 mg/dL (0.0-1.0); Blood Urea Nitrogen 10 mg/dL (9-16); C Reactive Protein < 0.10 mg/dL (< or = 0.50); Calcium 9.2 mg/dL (8.4-10.2); Carbon Dioxide 28 mmol/L (22-29); Chloride 105 mmol/L (96-108); Cholesterol 129 mg/dL; Estimated Glomerular Filt Rate > 60; Glucose Fasting 123 mg/dL (60-99); HDL Cholesterol 34 mg/dL; LDL Cholesterol Calculated 58 mg/dl; Potassium 4.5 mmol/L (3.3-5.1); Prostate Specific Antigen Scr 1.01 ng/mL (<0.05-4.0); Sodium 140 mmol/L (135-145); Total Protein 6.3 g/dL (6.5-8.0); Triglycerides 189 mg/dL; Uric Acid 4.6 mg/dL (3.4-7.0)
== END 2022-03-12 11:52 | disposition home or self-care (01) ==
LOC: HO.10HDL 11:51
PROVIDERS: Visit Provider Internal Medicine
DX: Z00.00 Encounter for general adult medical examination without abnormal findings (principal); Z12.5 Encounter for screening for malignant neoplasm of prostate; M25.571 Pain in right ankle and joints of right foot; I48.0 Paroxysmal atrial fibrillation; I10 Essential (primary) hypertension; E78.00 Pure hypercholesterolemia, unspecified; N40.0 Benign prostatic hyperplasia without lower urinary tract symptoms
CPT/HCPCS: 36415; 80053; 80061; 84153; 84550; 85025; 85652; 86140

== ENCOUNTER → 2022-03-27 09:17 | Outpatient (BNVA) | payer MEDICARE, SELFPAY | PROVIDERS: PCP Internal Medicine; Visit Provider Internal Medicine | DX: I48.20 Chronic atrial fibrillation, unspecified (principal); Z79.01 Long term (current) use of anticoagulants; Z51.81 Encounter for therapeutic drug level monitoring | CPT/HCPCS: 85610; 99211 ==

== ENCOUNTER → 2022-04-24 09:29 | Outpatient (BNVA) | payer MEDICARE, SELFPAY | PROVIDERS: PCP Internal Medicine; Visit Provider Internal Medicine | DX: I48.20 Chronic atrial fibrillation, unspecified (principal); Z79.01 Long term (current) use of anticoagulants; Z51.81 Encounter for therapeutic drug level monitoring | CPT/HCPCS: 85610; 99211 ==

== ENCOUNTER → 2022-05-19 09:01 | Outpatient (BNVA) | payer MEDICARE, SELFPAY | PROVIDERS: PCP Internal Medicine; Visit Provider Internal Medicine | DX: I48.20 Chronic atrial fibrillation, unspecified (principal); Z79.01 Long term (current) use of anticoagulants; Z51.81 Encounter for therapeutic drug level monitoring | CPT/HCPCS: 85610; 99211 ==

== ENCOUNTER 2022-05-19 09:40 | Outpatient (REF) | payer MEDICARE, SELFPAY ==
[2022-05-19 10:45] LABS: Hematocrit 44.2 % (42.0-52.0); Hemoglobin 15.2 g/dl (14.0-18.0); Mean Corpuscular HGB Conc 34.4 g/dl (31.0-36.0); Mean Corpuscular Hemoglobin 31.5 pg (27.0-33.0); Mean Corpuscular Volume 91.5 fL (80.0-98.0); Mean Platelet Volume 11.1 fL (9.4-12.4); Platelet Count 154 X10*3/uL (160-400); Red Blood Count 4.83 X10*6/uL (4.60-5.80); White Blood Count 8.6 X10*3/uL (4.8-10.8)
[2022-05-19 11:44] LABS: Prostate Specific Antigen 0.91 ng/mL (<0.05-4.0)
[2022-05-26 12:38] LABS: Testosterone, Total 206 ng/dL (250-1100)
== END 2022-05-19 09:41 | disposition home or self-care (01) ==
LOC: HO.10HDL 09:40
PROVIDERS: Visit Provider Urology
DX: Z12.5 Encounter for screening for malignant neoplasm of prostate (principal); I48.20 Chronic atrial fibrillation, unspecified; Z51.81 Encounter for therapeutic drug level monitoring; Z79.01 Long term (current) use of anticoagulants
CPT/HCPCS: 36415; 84153; 84403; 85027

== ENCOUNTER → 2022-06-26 09:34 | Outpatient (BNVA) | payer MEDICARE, SELFPAY | PROVIDERS: PCP Internal Medicine; Visit Provider Internal Medicine | DX: I48.20 Chronic atrial fibrillation, unspecified (principal); Z79.01 Long term (current) use of anticoagulants; Z51.81 Encounter for therapeutic drug level monitoring | CPT/HCPCS: 85610; 99211 ==

== ENCOUNTER → 2022-07-22 08:46 | Outpatient (BNVA) | payer MEDICARE, SELFPAY | PROVIDERS: PCP Internal Medicine; Visit Provider Urology | DX: E29.1 Testicular hypofunction (principal); N40.1 Benign prostatic hyperplasia with lower urinary tract symptoms; N39.43 Post-void dribbling | CPT/HCPCS: 51798; 99212 ==

== ENCOUNTER → 2022-07-24 09:18 | Outpatient (BNVA) | payer MEDICARE, SELFPAY | PROVIDERS: PCP Internal Medicine; Visit Provider Internal Medicine | DX: I48.20 Chronic atrial fibrillation, unspecified (principal); Z79.01 Long term (current) use of anticoagulants; Z51.81 Encounter for therapeutic drug level monitoring | CPT/HCPCS: 85610; 99211 ==

== ENCOUNTER 2022-08-11 11:54 | Outpatient (REF) | payer MEDICARE, SELFPAY ==
--- NOTE | ~2022-08-11 | XR_ITS ---
EXAMINATION: XR TIBIA AND FIBULA, RIGHT CLINICAL INFORMATION: Knee pain and leg pain COMPARISON: None available. TECHNIQUE: AP standing view of both knees. AP and lateral views of the right lower extremity. FINDINGS: AP standing view of both knees demonstrates mild narrowing of the medial joint space compartment bilaterally. No acute fracture or destructive bony lesion identified. 2 views of the right tibia and fibula do not demonstrate any evidence of acute fracture or dislocation. There is degenerative spurring about the ankle mortise with evidence of old distal fibular fracture. XR/XR tibia fibula RT 2V IMPRESSION: Mild degenerative change medial joint space compartments of both knees. Degenerative change about the right ankle with evidence of previous distal fibular fracture.
--- NOTE | ~2022-08-11 | XR_ITS ---
EXAMINATION: XR KNEE AP STANDING CLINICAL INFORMATION: Knee pain and leg pain COMPARISON: None available. TECHNIQUE: AP standing view of both knees. AP and lateral views of the right lower extremity. FINDINGS: AP standing view of both knees demonstrates mild narrowing of the medial joint space compartment bilaterally. No acute fracture or destructive bony lesion identified. 2 views of the right tibia and fibula do not demonstrate any evidence of acute fracture or dislocation. There is degenerative spurring about the ankle mortise with evidence of old distal fibular fracture. XR/XR knee standing BI IMPRESSION: Mild degenerative change medial joint space compartments of both knees. Degenerative change about the right ankle with evidence of previous distal fibular fracture.
== END 2022-08-11 11:55 | disposition home or self-care (01) ==
LOC: HO.HOSX 11:54
PROVIDERS: PCP Internal Medicine; Visit Provider Orthopaedic Surgery
DX: R20.0 Anesthesia of skin (principal); M25.561 Pain in right knee; M25.562 Pain in left knee; M79.604 Pain in right leg
CPT/HCPCS: 73565; 73590; 99212

== ENCOUNTER → 2022-08-25 08:58 | Outpatient (BNVA) | payer MEDICARE, SELFPAY | PROVIDERS: PCP Internal Medicine; Visit Provider Internal Medicine | DX: I48.20 Chronic atrial fibrillation, unspecified (principal); Z79.01 Long term (current) use of anticoagulants; Z51.81 Encounter for therapeutic drug level monitoring | CPT/HCPCS: 85610; 99211 ==

== ENCOUNTER 2022-09-09 14:21 | Outpatient (REF) | payer MEDICARE, SELFPAY ==
--- NOTE | ~2022-09-09 | MR_ITS ---
EXAMINATION: MR LUMBAR SPINE WITHOUT CONTRAST CLINICAL INFORMATION: Paresthesia of skin. COMPARISON: None TECHNIQUE: MRI of the lumbar spine was obtained using routine sequences without contrast. FINDINGS: The lumbar vertebral bodies maintain normal heights and alignment. There is advanced disc height loss at L4-L5. Mild amount of edema is seen at the superior and inferior aspect of L4. The distal spinal cord appears normal. Conus medullaris terminates normally at the L1-L2 level. There is a prominent right-sided T2 hyperintense renal cyst for which no additional imaging is recommended. SPINAL LEVELS: L1-L2: No posterior disc abnormality. No spinal canal or neural foraminal stenosis. L2-L3: Mild disc bulging. No spinal canal or neural foraminal stenosis. L3-L4: Mild disc bulging with mild facet arthropathy. Shallow right foraminal protrusion abuts the exiting right L3 nerve root. No spinal canal stenosis. L4-L5: Disc bulging with moderate to severe facet arthropathy. Flattening the ventral thecal sac with abutment of the traversing left L5 nerve root in the subarticular zone. Osteophytic ridging extends into the neural foramina and results in abutment of the extraforaminal L4 nerve roots bilaterally. L5-S1: Diffuse disc bulging with moderate to severe bilateral facet arthropathy. No spinal canal stenosis. Mild narrowing of the left neural foramen. MR/MR lumbar spine wo con IMPRESSION: 1. At L3-L4 there is shallow right foraminal protrusion which abuts the exiting right L3 nerve root. 2. At L4-L5 there is abutment of the traversing left L5 nerve root in the subarticular zone and abutment of the extraforaminal L4 nerve roots bilaterally.
== END 2022-09-09 14:22 | disposition home or self-care (01) ==
LOC: HO.MRI 14:21
PROVIDERS: PCP Internal Medicine; Visit Provider Orthopaedic Surgery
DX: R20.0 Anesthesia of skin (principal)
CPT/HCPCS: 72148

== ENCOUNTER → 2022-09-22 13:24 | Outpatient (BNVA) | payer MEDICARE, SELFPAY | PROVIDERS: PCP Internal Medicine; Visit Provider Internal Medicine | DX: I48.20 Chronic atrial fibrillation, unspecified (principal); Z79.01 Long term (current) use of anticoagulants; Z51.81 Encounter for therapeutic drug level monitoring | CPT/HCPCS: 85610; 99211 ==

== ENCOUNTER 2022-10-09 09:39 | Outpatient (REF) | payer MEDICARE, SELFPAY ==
[2022-10-09 10:47] LABS: MANUAL DIFF FLAG NO
[2022-10-09 10:51] LABS: Basophils Absolute Auto 0.1 X10*3/uL (0.0-0.2); Basophils Percent Auto 0.6 % (0-2); Eosinophils Absolute Auto 0.3 X10*3/uL (0.0-0.4); Eosinophils Percent Auto 3.8 % (0-4); Hematocrit 45.4 % (42.0-52.0); Hemoglobin 15.3 g/dl (14.0-18.0); Imm Gran Abs Auto 0.04 X10*3/uL (0.00-0.03); Imm Gran Pct Auto 0.5 % (0.0-0.4); Lymphocytes Absolute Auto 2.9 X10*3/uL (1.2-4.9); Lymphocytes Percent Auto 34.8 % (20-40); Mean Corpuscular HGB Conc 33.7 g/dl (31.0-36.0); Mean Corpuscular Hemoglobin 31.2 pg (27.0-33.0); Mean Corpuscular Volume 92.7 fL (80.0-98.0); Mean Platelet Volume 11.8 fL (9.4-12.4); Monocytes Absolute Auto 0.5 X10*3/uL (0.1-1.2); Monocytes Percent Auto 5.8 % (2-11); Neutrophils Absolute Auto 4.5 x10*3/uL (2.0-8.3); Neutrophils Percent Auto 54.5 % (45-73); Platelet Count 153 X10*3/uL (160-400); Red Cell Distribution Width 12.4 % (11.0-16.0); White Blood Count 8.3 X10*3/uL (4.8-10.8)
[2022-10-09 11:20] LABS: Alanine Aminotransferase 35 U/L (0-40); Alkaline Phosphatase 39 U/L (39-117); Anion Gap 11 (12-20); Aspartate Amino Transferase 29 U/L (5-37); Bilirubin Total 1.4 mg/dL (0.0-1.0); Blood Urea Nitrogen 11 mg/dL (9-16); Calcium 9.5 mg/dL (8.4-10.2); Carbon Dioxide 26 mmol/L (22-29); Chloride 105 mmol/L (96-108); Estimated Average Glucose 117 mg/dL; Estimated Glomerular Filt Rate > 60; Glucose Random 126 mg/dL (60-115); Hemoglobin A1c % 5.7 %; Potassium 3.9 mmol/L (3.3-5.1); Sodium 138 mmol/L (135-145); Total Protein 6.8 g/dL (6.5-8.0)
== END 2022-10-09 09:40 | disposition home or self-care (01) ==
LOC: HO.10HDL 09:39
PROVIDERS: Visit Provider Internal Medicine
DX: I48.0 Paroxysmal atrial fibrillation (principal); I10 Essential (primary) hypertension; R73.03 Prediabetes
CPT/HCPCS: 36415; 80053; 83036; 85025

== ENCOUNTER 2022-10-22 10:16 | Outpatient (AMB) | payer MEDICARE, SELFPAY ==
--- NOTE | 2022-10-22 10:29 | A.SPINEOV_ITS ---
Intake Intake Visit Reasons: Anesthesia of skin Intake Note: Mr. Berg is here today c/o tingling in feet. MRI done @ [facility] [place] 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 He is a pleasant 77-year-old male currently on anticoagulation (warfarin) for AFib, who was initially referred for right-sided knee and lower leg weakness. He states that his right sided weakness has been prevalent since a tibia fracture roughly 20 years ago. He reports being more concerned at this time with his left lower extremity, specifically his left 5th phalanx (F). He states that he has constant 8/10 pain accompanied by burning / numbness / tingling in his left 5th phalanx (F), with exacerbations up to 10/10 pain throughout the day and at night. He reports no inciting incident, and states that the pain began without cause several weeks ago. He reports that he has tried taking gabapentin, Tylenol, and ibuprofen without relief. PMH: High blood pressure, hyperlipidemia, neuropathy, GERD, AFib, insomnia. Social hx: He does not smoke, reports no substance use. Medications: Atorvastatin, potassium chloride, amiodarone, metoprolol, furosemide, gabapentin, tamsulosin, losartan, AndroGel, pantoprazole, warfarin, Tylenol, vitamin-C, fish oil, glucosamine, Ambien, melatonin. Allergies: Protamine, fentanyl, sevo-flurane, rocuronium. Physical exam: CN II-XII grossly intact. The patient has 5/5 strength in his upper and lower extremities. Reflexes 2+ intact in UE & LE. (-) Babinski. Sensation remains largely intact, but the patient reports some reduced sensation in his left foot secondary to edema. He does have non-pitting edema of his left foot, without lower extremity involvement. His left foot is non-tender to palpation. Imaging review: MRI imaging was reviewed with Dr. Mills. Spinal cord appeared patent without any impingement. No pathology seen to suggest patients symptoms. Impression: The patient is a 77-year-old male with a chief complaint of left foot pain numbness tingling and burning, specifically in the left 5th phalanx (F). This is accompanied by longstanding right-sided leg weakness, which the patient attributes to a tibia fracture he had 20 years ago. After reviewing imaging and completing physical exam alongside Dr. Mills it is our belief that the patient would most benefit from a referral to podiatry. We also discussed the possibility of physical therapy or pain management (injections) but we doubted if these options would have any utility. No neurosurgical intervention indicated at this time. Thank you for allowing us to care for your patient. The total time spent with this visit with this patient was 45 minutes reviewing history, physical exam, MRI lumbar spine imaging review, and implementation of treatment plan or further diagnostic testing Judah Mills MD,PhD [facility] Orders: Referrals Podiatry Referral M79.672 - Pain in left foot Coding Level of Care Code New Pt Level 4 (87489) Diagnoses Left foot pain M79.672 Time Spent (min) 45
== END 2022-10-22 11:36 | disposition home or self-care (01) ==
PROVIDERS: PCP Internal Medicine; Referring Provider Orthopaedic Surgery; Visit Provider Neurological Surgery
DX: M79.672 Pain in left foot (principal)
CPT/HCPCS: 99204

== ENCOUNTER → 2022-10-22 10:16 | Outpatient (BNVA) | payer MEDICARE, SELFPAY | PROVIDERS: PCP Internal Medicine; Referring Provider Orthopaedic Surgery; Visit Provider Neurological Surgery | DX: M79.672 Pain in left foot (principal) | CPT/HCPCS: 99202 ==

== ENCOUNTER 2022-10-27 08:49 | Outpatient (AMB) | payer MEDICARE, SELFPAY ==
[2022-10-27 09:10] LABS: Prothrombin Time Whole Bld POC 21.9 sec (11.1-13.5); ~PT, ~INR - Anti Coag Clinic 1.8 (0.9-1.1)
--- NOTE | 2022-10-27 09:20 | MHC.OFFVISCO ---
Intake Intake Visit Reasons: Anticoagulation Allergies fentanyl [FENTANYL] Allergy (Severe, Verified 10/27/22 09:03) ANAPHYLAXIS protamine [PROTAMINE] Allergy (Severe, Verified 10/27/22 09:03) ANAPHYLAXIS rocuronium [ROCURONIUM] Allergy (Severe, Verified 10/27/22 09:03) ANAPHYLAXIS sevoflurane [SEVOFLURANE] Allergy (Severe, Verified 10/27/22 09:03) ANAPHYLAXIS Nursing Note INR: 1.8 just out of therapeutic range recently had MRI of spine head legs due to leg pain, found to have arthritis No changes in health, diet, medications, or supplements, Denies any signs and symptoms of bleeding or bruising or clotting. Bleeding, bruising, clotting discussed Nutritional guidance given - increase orange and reds and onion and garlic to help raise the INR Dose: 5mg x 3 days this week then resume 5mg x 2 days/ 2.5mg x 5 days F/U INR: 4 weeks per pt insistence Patient verbalizes understanding of instructions given Coding Level of Care Code Est Patient Level 1 Diagnoses Current use of anticoagulant therapy Z79.01 Assessment & Plan Assessment & Plan (1) Current use of anticoagulant therapy: Code(s): Z79.01 - USP (current) use of anticoagulants Category: Medical
== END 2022-10-27 09:23 | disposition home or self-care (01) ==
LOC: HO.ACS 08:49
PROVIDERS: PCP Internal Medicine; Visit Provider Internal Medicine
DX: Z79.01 Long term (current) use of anticoagulants (principal)

== ENCOUNTER → 2022-10-27 08:49 | Outpatient (BNVA) | payer MEDICARE, SELFPAY | PROVIDERS: PCP Internal Medicine; Visit Provider Internal Medicine | DX: I48.20 Chronic atrial fibrillation, unspecified (principal); Z79.01 Long term (current) use of anticoagulants; Z51.81 Encounter for therapeutic drug level monitoring | CPT/HCPCS: 85610; 99211 ==

== ENCOUNTER 2022-11-27 09:52 | Outpatient (AMB) | payer MEDICARE, SELFPAY ==
[2022-11-27 10:19] LABS: ~PT, ~INR - Anti Coag Clinic 2.2 (0.9-1.1)
--- NOTE | 2022-11-27 10:23 | MHC.OFFVISCO ---
Intake Intake Visit Reasons: Anticoagulation Allergies fentanyl [FENTANYL] Allergy (Severe, Verified 11/27/22 10:13) ANAPHYLAXIS protamine [PROTAMINE] Allergy (Severe, Verified 11/27/22 10:13) ANAPHYLAXIS rocuronium [ROCURONIUM] Allergy (Severe, Verified 11/27/22 10:13) ANAPHYLAXIS sevoflurane [SEVOFLURANE] Allergy (Severe, Verified 11/27/22 10:13) ANAPHYLAXIS Medication List - Last Reconciled 11/27/22 by Jeannie Leger RN amiodarone 100 mg PO DAILY atorvastatin 80 mg PO DAILY furosemide 40 mg PO DAILY gabapentin 200 mg PO BEDTIME gemfibrozil 600 mg PO BID losartan 50 mg PO DAILY metoprolol succinate ER 100 mg PO DAILY pantoprazole 40 mg PO DAILY potassium chloride ER 10 mEq PO DAILY 90 days tamsulosin 0.8 mg (2 x 0.4 mg) PO BEDTIME 90 days testosterone 1 pump topical one pump to one shoulder daily 28 days warfarin 5 mg See Protocol PO DAILY zolpidem 10 mg PO BEDTIME PRN Nursing Note INR: 2.2 in therapeutic range- PT IS WELL Medications and supplements reviewed No changes in health, diet, medications, or supplements, Denies any signs and symptoms of bleeding or bruising or clotting. Bleeding, bruising, clotting discussed Nutritional guidance given Dose: 5MG X 2 DAYS/ 2.5MG X 5 DAYS F/U INR: 1 MONTH Patient verbalizes understanding of instructions given Coding Level of Care Code Est Patient Level 1 Diagnoses Current use of anticoagulant therapy Z79.01 Assessment & Plan Assessment & Plan (1) Current use of anticoagulant therapy: Code(s): Z79.01 - jail (current) use of anticoagulants Category: Medical
== END 2022-11-27 10:25 | disposition home or self-care (01) ==
LOC: HO.ACS 09:52
PROVIDERS: PCP Internal Medicine; Visit Provider Internal Medicine
DX: Z79.01 Long term (current) use of anticoagulants (principal)

== ENCOUNTER → 2022-11-27 09:52 | Outpatient (BNVA) | payer MEDICARE, SELFPAY | PROVIDERS: PCP Internal Medicine; Visit Provider Internal Medicine | DX: I48.20 Chronic atrial fibrillation, unspecified (principal); Z79.01 Long term (current) use of anticoagulants; Z51.81 Encounter for therapeutic drug level monitoring | CPT/HCPCS: 85610; 99211 ==

== ENCOUNTER 2022-12-25 08:55 | Outpatient (AMB) | payer MEDICARE, SELFPAY ==
--- NOTE | 2022-12-25 10:16 | MHC.OFFVISCO ---
Intake Intake Visit Reasons: Anticoagulation Allergies fentanyl [FENTANYL] Allergy (Severe, Verified 12/25/22 08:56) ANAPHYLAXIS protamine [PROTAMINE] Allergy (Severe, Verified 12/25/22 08:56) ANAPHYLAXIS rocuronium [ROCURONIUM] Allergy (Severe, Verified 12/25/22 08:56) ANAPHYLAXIS sevoflurane [SEVOFLURANE] Allergy (Severe, Verified 12/25/22 08:56) ANAPHYLAXIS Medication List - Last Reconciled 12/25/22 by Morena Durand RN amiodarone 100 mg PO DAILY atorvastatin 80 mg PO DAILY furosemide 40 mg PO DAILY gabapentin 200 mg PO BEDTIME gemfibrozil 600 mg PO BID losartan 50 mg PO DAILY metoprolol succinate ER 100 mg PO DAILY pantoprazole 40 mg PO DAILY potassium chloride ER 10 mEq PO DAILY 90 days tamsulosin 0.8 mg (2 x 0.4 mg) PO BEDTIME 90 days testosterone 1 pump topical one pump to one shoulder daily 28 days warfarin 5 mg See Protocol PO DAILY zolpidem 10 mg PO BEDTIME PRN Nursing Note NO CP,SOB,DIET/MED CHANGES,FALLS OR SX OF BLEDING. CONTINUE PRESENT DOSE AND FOLLOW-UP IN 4 WEEKS. GOOD UNDERSTANDING OF DOSING INSTR. Coding Level of Care Code Est Patient Level 1 Diagnoses Current use of anticoagulant therapy Z79.01 Assessment & Plan Assessment & Plan (1) Current use of anticoagulant therapy: Code(s): Z79.01 - longterm (current) use of anticoagulants Category: Medical
== END 2022-12-25 10:17 | disposition home or self-care (01) ==
LOC: HO.ACS 08:55
PROVIDERS: PCP Internal Medicine; Visit Provider Internal Medicine
DX: Z79.01 Long term (current) use of anticoagulants (principal)

== ENCOUNTER → 2022-12-25 08:55 | Outpatient (BNVA) | payer MEDICARE, SELFPAY | PROVIDERS: PCP Internal Medicine; Visit Provider Internal Medicine | DX: I48.20 Chronic atrial fibrillation, unspecified (principal); Z79.01 Long term (current) use of anticoagulants; Z51.81 Encounter for therapeutic drug level monitoring | CPT/HCPCS: 85610; 99211 ==

== ENCOUNTER 2023-01-15 10:11 | Outpatient (REF) | payer MEDICARE, SELFPAY ==
[2023-01-15 10:59] LABS: MANUAL DIFF FLAG NO
[2023-01-15 11:09] LABS: Basophils Absolute Auto 0.1 X10*3/uL (0.0-0.2); Basophils Percent Auto 0.6 % (0-2); Eosinophils Absolute Auto 0.3 X10*3/uL (0.0-0.4); Eosinophils Percent Auto 3.7 % (0-4); Hematocrit 43.4 % (42.0-52.0); Imm Gran Abs Auto 0.03 X10*3/uL (0.00-0.03); Imm Gran Pct Auto 0.4 % (0.0-0.4); Lymphocytes Absolute Auto 2.8 X10*3/uL (1.2-4.9); Lymphocytes Percent Auto 32.1 % (20-40); Mean Corpuscular HGB Conc 34.6 g/dl (31.0-36.0); Mean Corpuscular Hemoglobin 31.3 pg (27.0-33.0); Mean Corpuscular Volume 90.4 fL (80.0-98.0); Mean Platelet Volume 10.8 fL (9.4-12.4); Monocytes Absolute Auto 0.5 X10*3/uL (0.1-1.2); Monocytes Percent Auto 5.6 % (2-11); Neutrophils Absolute Auto 4.9 x10*3/uL (2.0-8.3); Neutrophils Percent Auto 57.6 % (45-73); Platelet Count 144 X10*3/uL (160-400); Red Cell Distribution Width 12.4 % (11.0-16.0); White Blood Count 8.6 X10*3/uL (4.8-10.8)
[2023-01-15 11:10] LABS: Estimated Average Glucose 126 mg/dL
[2023-01-15 11:11] LABS: Alanine Aminotransferase 29 U/L (0-40); Albumin Level 3.8 g/dL (3.5-5.0); Alkaline Phosphatase 38 U/L (39-117); Anion Gap 10 (12-20); Aspartate Amino Transferase 30 U/L (5-37); Bilirubin Total 1.5 mg/dL (0.0-1.0); Blood Urea Nitrogen 11 mg/dL (9-16); Calcium 9.2 mg/dL (8.4-10.2); Carbon Dioxide 28 mmol/L (22-29); Chloride 106 mmol/L (96-108); Estimated Glomerular Filt Rate > 60; Glucose Random 127 mg/dL (60-115); Potassium 4.4 mmol/L (3.3-5.1); Sodium 140 mmol/L (135-145); Total Protein 6.6 g/dL (6.5-8.0)
[2023-01-15 11:14] LABS: Hematocrit 43.4 % (42.0-52.0); Mean Corpuscular HGB Conc 34.6 g/dl (31.0-36.0); Mean Corpuscular Hemoglobin 31.3 pg (27.0-33.0); Mean Corpuscular Volume 90.4 fL (80.0-98.0); Mean Platelet Volume 10.8 fL (9.4-12.4); Platelet Count 144 X10*3/uL (160-400); Red Cell Distribution Width 12.4 % (11.0-16.0); White Blood Count 8.6 X10*3/uL (4.8-10.8)
[2023-01-15 11:31] LABS: PSA,Total (Free>4and<10) 1.01 ng/mL (0.00-4.00)
[2023-01-19 18:38] LABS: Testosterone, Total 553 ng/dL (250-1100)
== END 2023-01-15 10:12 | disposition home or self-care (01) ==
LOC: HO.10HDL 10:11
PROVIDERS: Referring Provider Internal Medicine; Visit Provider Urology
DX: E29.1 Testicular hypofunction (principal); I48.0 Paroxysmal atrial fibrillation; I10 Essential (primary) hypertension; R73.03 Prediabetes; N40.0 Benign prostatic hyperplasia without lower urinary tract symptoms; Z12.5 Encounter for screening for malignant neoplasm of prostate
CPT/HCPCS: 36415; 80053; 83036; 84153; 84403; 85025; 85027

== ENCOUNTER 2023-01-21 11:12 | Outpatient (AMB) | payer MEDICARE, SELFPAY ==
--- NOTE | 2023-01-21 11:14 | MHC.OFFVIS ---
Intake Intake Visit Reasons: 6m/PSA/Testo(set) Intake Note: Patient is Present for Follow Up Urology Medication: Tamsulosin, Testosterone Antibiotic Allergies: None Blood Thinners: Warfarin [facility]acy: [facility] Allergies fentanyl [FENTANYL] Allergy (Severe, Verified 01/21/23 11:20) ANAPHYLAXIS protamine [PROTAMINE] Allergy (Severe, Verified 01/21/23 11:20) ANAPHYLAXIS rocuronium [ROCURONIUM] Allergy (Severe, Verified 01/21/23 11:20) ANAPHYLAXIS sevoflurane [SEVOFLURANE] Allergy (Severe, Verified 01/21/23 11:20) ANAPHYLAXIS Medication List - Last Reconciled 01/21/23 by Nilesh Bradshaw MD amiodarone 100 mg PO DAILY atorvastatin 80 mg PO DAILY furosemide 40 mg PO DAILY gabapentin 200 mg PO BEDTIME gemfibrozil 600 mg PO BID losartan 50 mg PO DAILY metoprolol succinate ER 100 mg PO DAILY pantoprazole 40 mg PO DAILY potassium chloride ER 10 mEq PO DAILY 90 days tamsulosin 0.8 mg (2 x 0.4 mg) PO BEDTIME 90 days testosterone 1 pump topical one pump to one shoulder daily 28 days warfarin 5 mg See Protocol PO DAILY zolpidem 10 mg PO BEDTIME PRN HPI HPI Comments History of Present Illness Details Wesley is a very pleasant male. He is a patient of Dr. Schultz. He is seen for the following urologic conditions - hypogonadism - erectile dysfunction - lower urinary tract symptoms Testosterone in range, lower end for him Continue with tamsulosin 0.8 Reactivated prosthetic Six month follow-up Hypogonadism Longstanding Uses gel Variable testosterone on follow-up Well-being is stable Laboratories - 12/11 T 592, P .99, Hct 47, 06/11 705 0.9 44.5, 12/12 630 1.0 45, 05/15 206, 01/12 T 553 P 1.0 Continue with application in surveillance Erectile dysfunction Status post removal and replacement of penile implant.?? Lower urinary tract symptoms Longstanding Current therapy tamsulosin 0.8 mg Current symptoms include nocturia PFSH Medical History (HFpEF) heart failure with preserved ejection fraction Paroxysmal atrial fibrillation HTN (hypertension) History of cardioversion Benign prostatic hyperplasia with post-void dribbling Hypogonadism in male Surgical History History of penile implant History of cardiac radiofrequency ablation (RFA) Hx of endoscopy Hx of colonoscopy Family History Father No problems noted. Mother CVD (cardiovascular disease) Heart murmur Social History Current occupational status: retired Current occupation: [employer] Review of Systems Const Denies chills and Denies fever(s) Card Reports no additional complaints and Denies syncope Resp Denies cough GI Denies abdominal pain and Denies heartburn Reports as per HPI and Denies change in libido Neuro Denies syncope Psych Denies change in libido Endo Denies change in libido Physical Exam Const General: cooperative, healthy appearing, comfortable and no acute distress Orientation/consciousness: patient oriented x3 HEENT Face and sinus: Yes normal facial exam Mouth: moist mucous membranes Neck Neck: Yes normal visual inspection, Yes full ROM and Yes trachea midline Chest Chest palpation & inspection: normal inspection of the chest Resp Effort & Inspection: normal respiratory effort, able to speak in complete sentences and no respiratory distress GI Inspection: Yes normal to inspection Back/Spine/Pelvis Cervical Spine: normal cervical lordosis Thoracic/Lumbar Spine: thoracic and lumbar spine normal to inspection Skin General skin exam: no rashes or lesions noted Neuro General: patient oriented x3, gait normal, tone normal and moves all extremities Extrem General: Yes normal to inspection and Yes capillary refill normal Assessment & Plan Assessment & Plan (1) Benign prostatic hyperplasia with post-void dribbling: Code(s): N40.1 - Benign prostatic hyperplasia with lower urinary tract symptoms; N39.43 - Post-void dribbling (2) Hypogonadism in male: Comment: Testosterone gel Code(s): E29.1 - Testicular hypofunction Plan Six month follow-up labs Orders: Orders Prostate Specific Antigen 6 Months E29.1 - Testicular hypofunction Complete Blood Count no Diff 6 Months E29.1 - Testicular hypofunction Testosterone, Total 6 Months E29.1 - Testicular hypofunction Medications: Changed From testosterone 1 pump topical one pump to one shoulder daily 28 days 75 grams 5RF E29.1 - Testicular hypofunction To testosterone 2 pumps topically one pump to each shoulder daily; 28 days 75 grams 5RF E29.1 - Testicular hypofunction Refilled tamsulosin 0.8 mg (2 x 0.4 mg) PO BEDTIME 180 caps 1RF 90 days N39.43 - Post-void dribbling, N40.1 - Benign prostatic hyperplasia with lower urinary tract symptoms Patient Instructions: Imaging studies, laboratory and physical exam results were discussed and reviewed in detail. No major barriers to patient understanding were identified. An opportunity to ask questions regarding the treatment plan was provided. All questions were answered. The patient expressed understanding and agreement with the above treatment plan. The patient is aware they should contact our office by phone for worsening of their current condition or the appearance of new urologic symptoms. Compliance is encouraged with any medications and followup testing that is ordered. It is a privilege to participate in the urologic care of your patient. If you have any questions or concerns regarding treatment for the above conditions, or other urologic issues, please do not hesitate to contact me. The office telephone contact is [phone]. This note is constructed using voice recognition software. While every effort has been made to ensure accuracy cable armorer errors may have been included. Yours sincerely, Dr Nilesh Bradshaw MD, [facility] - Urology Providers of Expert, Compassionate Care for the Genitourinary System Coding Level of Care Code Est Pt Level 3 (32903) Diagnoses Benign prostatic hyperplasia with post-void dribbling N40.1; N39.43 Hypogonadism in male E29.1
== END 2023-01-21 11:31 | disposition home or self-care (01) ==
PROVIDERS: PCP Internal Medicine; Visit Provider Urology
DX: N40.1 Benign prostatic hyperplasia with lower urinary tract symptoms (principal); N39.43 Post-void dribbling; E29.1 Testicular hypofunction
CPT/HCPCS: 99213

== ENCOUNTER → 2023-01-21 11:12 | Outpatient (BNVA) | payer MEDICARE, SELFPAY | PROVIDERS: PCP Internal Medicine; Visit Provider Urology | DX: E29.1 Testicular hypofunction (principal); N40.1 Benign prostatic hyperplasia with lower urinary tract symptoms; N39.43 Post-void dribbling; Z79.899 Other long term (current) drug therapy | CPT/HCPCS: 99212 ==

== ENCOUNTER 2023-01-22 08:52 | Outpatient (AMB) | payer MEDICARE, SELFPAY ==
--- NOTE | 2023-01-22 09:07 | MHC.OFFVISCO ---
Intake Intake Visit Reasons: Anticoagulation Allergies fentanyl [FENTANYL] Allergy (Severe, Verified 01/22/23 09:04) ANAPHYLAXIS protamine [PROTAMINE] Allergy (Severe, Verified 01/22/23 09:04) ANAPHYLAXIS rocuronium [ROCURONIUM] Allergy (Severe, Verified 01/22/23 09:04) ANAPHYLAXIS sevoflurane [SEVOFLURANE] Allergy (Severe, Verified 01/22/23 09:04) ANAPHYLAXIS Medication List - Last Reconciled 01/22/23 by Jeannie Leger RN amiodarone 100 mg PO DAILY atorvastatin 80 mg PO DAILY fluorouracil 5% 1 appl topical BID furosemide 40 mg PO DAILY gabapentin 200 mg PO BEDTIME gemfibrozil 600 mg PO BID losartan 50 mg PO DAILY metoprolol succinate ER 100 mg PO DAILY pantoprazole 40 mg PO DAILY potassium chloride ER 10 mEq PO DAILY 90 days tamsulosin 0.8 mg (2 x 0.4 mg) PO BEDTIME 90 days testosterone 2 pumps topically one pump to each shoulder daily; 28 days warfarin 5 mg See Protocol PO DAILY zolpidem 10 mg PO BEDTIME PRN Nursing Note pt visit delayed due to interfacing INR: 1.8 in therapeutic range Medications and supplements reviewed increase in testosterone and using fluorouracil Denies any signs and symptoms of bleeding or bruising or clotting. 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
[2023-01-22 09:13] LABS: Prothrombin Time Whole Bld POC 21.9 sec (11.1-13.5); ~PT, ~INR - Anti Coag Clinic 1.8 (0.9-1.1)
== END 2023-01-22 09:22 | disposition home or self-care (01) ==
LOC: HO.ACS 08:52
PROVIDERS: PCP Internal Medicine; Visit Provider Internal Medicine
DX: Z79.01 Long term (current) use of anticoagulants (principal)

== ENCOUNTER → 2023-01-22 08:52 | Outpatient (BNVA) | payer MEDICARE, SELFPAY | PROVIDERS: PCP Internal Medicine; Visit Provider Internal Medicine | DX: I48.20 Chronic atrial fibrillation, unspecified (principal); Z79.01 Long term (current) use of anticoagulants; Z51.81 Encounter for therapeutic drug level monitoring | CPT/HCPCS: 85610; 99211 ==

== ENCOUNTER 2023-02-19 08:55 | Outpatient (AMB) | payer MEDICARE, SELFPAY ==
[2023-02-19 09:20] LABS: Prothrombin Time Whole Bld POC 21.5 sec (11.1-13.5); ~PT, ~INR - Anti Coag Clinic 1.8 (0.9-1.1)
--- NOTE | 2023-02-19 09:30 | MHC.OFFVISCO ---
Intake Intake Visit Reasons: Anticoagulation Allergies fentanyl [FENTANYL] Allergy (Severe, Verified 02/19/23 09:14) ANAPHYLAXIS protamine [PROTAMINE] Allergy (Severe, Verified 02/19/23 09:14) ANAPHYLAXIS rocuronium [ROCURONIUM] Allergy (Severe, Verified 02/19/23 09:14) ANAPHYLAXIS sevoflurane [SEVOFLURANE] Allergy (Severe, Verified 02/19/23 09:14) ANAPHYLAXIS Medication List - Last Reconciled 02/19/23 by Jeannie Leger RN amiodarone 100 mg PO DAILY atorvastatin 80 mg PO DAILY fluorouracil 5% 1 appl topical BID furosemide 40 mg PO DAILY gabapentin 200 mg PO BEDTIME gemfibrozil 600 mg PO BID losartan 50 mg PO DAILY metoprolol succinate ER 100 mg PO DAILY pantoprazole 40 mg PO DAILY potassium chloride ER 10 mEq PO DAILY 90 days tamsulosin 0.8 mg (2 x 0.4 mg) PO BEDTIME 90 days testosterone 2 pumps topically one pump to each shoulder daily; 28 days warfarin 5 mg See Protocol PO DAILY zolpidem 10 mg PO BEDTIME PRN Nursing Note pt states he has a heart monitor at home and checks weekly and states he has not been in Afib, he states also he is checked by cardiology annually- no afib detected. Is on warfarin just in case he goes into Afib? INR: 1.8 OUT OF therapeutic range Medications and supplements reviewed No changes in health, medications, or supplements He has been very active stacking and chopping wood, drinking ensure and v8 juice Denies any signs and symptoms of bleeding or bruising or clotting. 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
== END 2023-02-19 09:34 | disposition home or self-care (01) ==
LOC: HO.ACS 08:55
PROVIDERS: PCP Internal Medicine; Visit Provider Internal Medicine
DX: Z79.01 Long term (current) use of anticoagulants (principal)

== ENCOUNTER → 2023-02-19 08:55 | Outpatient (BNVA) | payer MEDICARE, SELFPAY | PROVIDERS: PCP Internal Medicine; Visit Provider Internal Medicine | DX: I48.20 Chronic atrial fibrillation, unspecified (principal); Z79.01 Long term (current) use of anticoagulants; Z51.81 Encounter for therapeutic drug level monitoring | CPT/HCPCS: 85610; 99211 ==

== ENCOUNTER 2023-03-05 08:50 | Outpatient (AMB) | payer MEDICARE, SELFPAY ==
[2023-03-05 09:23] LABS: Prothrombin Time Whole Bld POC 25.6 sec (11.1-13.5); ~PT, ~INR - Anti Coag Clinic 2.1 (0.9-1.1)
--- NOTE | 2023-03-05 09:29 | MHC.OFFVISCO ---
Intake Intake Visit Reasons: Anticoagulation Allergies fentanyl [FENTANYL] Allergy (Severe, Verified 03/05/23 09:17) ANAPHYLAXIS protamine [PROTAMINE] Allergy (Severe, Verified 03/05/23 09:17) ANAPHYLAXIS rocuronium [ROCURONIUM] Allergy (Severe, Verified 03/05/23 09:17) ANAPHYLAXIS sevoflurane [SEVOFLURANE] Allergy (Severe, Verified 03/05/23 09:17) ANAPHYLAXIS Medication List - Last Reconciled 03/05/23 by Morena Durand RN amiodarone 100 mg PO DAILY atorvastatin 80 mg PO DAILY fluorouracil 5% 1 appl topical BID furosemide 40 mg PO DAILY gabapentin 200 mg PO BEDTIME gemfibrozil 600 mg PO BID losartan 50 mg PO DAILY metoprolol succinate ER 100 mg PO DAILY pantoprazole 40 mg PO DAILY potassium chloride ER 10 mEq PO DAILY 90 days tamsulosin 0.8 mg (2 x 0.4 mg) PO BEDTIME 90 days testosterone 2 pumps topically one pump to each shoulder daily; 28 days warfarin 5 mg See Protocol PO DAILY zolpidem 10 mg PO BEDTIME PRN Nursing Note NO CP,SOB,DIET/MED CHANGES,FALLS OR SX OF BLEEDING. CONTINUE PRESENT DOSE AND FOLLOW-UP IN 4 WEEKS. GOOD UNDERSTANDING OF DOSING INSTR. Coding Level of Care Code Est Patient Level 1 Diagnoses Current use of anticoagulant therapy Z79.01 Assessment & Plan Assessment & Plan (1) Current use of anticoagulant therapy: Code(s): Z79.01 - jail (current) use of anticoagulants Category: Medical
== END 2023-03-05 09:30 | disposition home or self-care (01) ==
LOC: HO.ACS 08:50
PROVIDERS: PCP Internal Medicine; Visit Provider Internal Medicine
DX: Z79.01 Long term (current) use of anticoagulants (principal)

== ENCOUNTER → 2023-03-05 08:50 | Outpatient (BNVA) | payer MEDICARE, SELFPAY | PROVIDERS: PCP Internal Medicine; Visit Provider Internal Medicine | DX: I48.20 Chronic atrial fibrillation, unspecified (principal); Z79.01 Long term (current) use of anticoagulants; Z51.81 Encounter for therapeutic drug level monitoring | CPT/HCPCS: 85610; 99211 ==

== ENCOUNTER 2023-04-02 08:48 | Outpatient (AMB) | payer MEDICARE, SELFPAY ==
--- NOTE | 2023-04-02 09:00 | MHC.OFFVISCO ---
Intake Intake Visit Reasons: Anticoagulation Allergies fentanyl [FENTANYL] Allergy (Severe, Verified 04/02/23 08:53) ANAPHYLAXIS protamine [PROTAMINE] Allergy (Severe, Verified 04/02/23 08:53) ANAPHYLAXIS rocuronium [ROCURONIUM] Allergy (Severe, Verified 04/02/23 08:53) ANAPHYLAXIS sevoflurane [SEVOFLURANE] Allergy (Severe, Verified 04/02/23 08:53) ANAPHYLAXIS Medication List - Last Reconciled 04/02/23 by Courtney Dunn RN amiodarone 100 mg PO DAILY atorvastatin 80 mg PO DAILY fluorouracil 5% 1 appl topical BID furosemide 40 mg PO DAILY gabapentin 200 mg PO BEDTIME gemfibrozil 600 mg PO BID losartan 50 mg PO DAILY metoprolol succinate ER 100 mg PO DAILY pantoprazole 40 mg PO DAILY potassium chloride ER 10 mEq PO DAILY 90 days tamsulosin 0.8 mg (2 x 0.4 mg) PO BEDTIME 90 days testosterone 2 pumps topically one pump to each shoulder daily; 28 days warfarin 5 mg See Protocol PO DAILY zolpidem 10 mg PO BEDTIME PRN Nursing Note INR 1.4-?? out of therapeutic range of 2-3 Medications and supplements reviewed Patient status: pt states had dental extraction yesterday. states sutures intact and no bleeding pt states he held warfarin tue and wed Medications or supplements: no changes Diet: same Denies any signs and symptoms of bleeding or clotting or unusual bruising Bleeding, bruising, clotting discussed Nutritional guidance given: no greens for 2-3 days, eat reds to raise Dose: 5mg today tomm and sat then cont reg 5mg x 3, 2.5mg x 4 F/U INR Date : ref earlier appt than 1 week?? Patient verbalizing understanding of instructions given. 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
[2023-04-03 08:52] LABS: Prothrombin Time Whole Bld POC 16.2 sec (11.1-13.5); ~PT, ~INR - Anti Coag Clinic 1.4 (0.9-1.1)
== END 2023-04-02 09:14 | disposition home or self-care (01) ==
LOC: HO.ACS 08:48
PROVIDERS: PCP Internal Medicine; Visit Provider Internal Medicine
DX: Z79.01 Long term (current) use of anticoagulants (principal)

== ENCOUNTER → 2023-04-02 08:48 | Outpatient (BNVA) | payer MEDICARE, SELFPAY | PROVIDERS: PCP Internal Medicine; Visit Provider Internal Medicine | DX: I48.20 Chronic atrial fibrillation, unspecified (principal); Z79.01 Long term (current) use of anticoagulants; Z51.81 Encounter for therapeutic drug level monitoring | CPT/HCPCS: 85610; 99211 ==

== ENCOUNTER 2023-04-09 10:12 | Outpatient (REF) | payer MEDICARE, SELFPAY ==
[2023-04-09 13:22] LABS: MANUAL DIFF FLAG NO
[2023-04-09 13:34] LABS: Basophils Percent Auto 0.5 % (0-2); Eosinophils Absolute Auto 0.3 X10*3/uL (0.0-0.4); Eosinophils Percent Auto 3.7 % (0-4); Hematocrit 46.8 % (42.0-52.0); Hemoglobin 16.2 g/dl (14.0-18.0); Imm Gran Abs Auto 0.04 X10*3/uL (0.00-0.03); Imm Gran Pct Auto 0.5 % (0.0-0.4); Lymphocytes Absolute Auto 2.7 X10*3/uL (1.2-4.9); Lymphocytes Percent Auto 30.9 % (20-40); Mean Corpuscular HGB Conc 34.6 g/dl (31.0-36.0); Mean Corpuscular Hemoglobin 31.6 pg (27.0-33.0); Mean Corpuscular Volume 91.2 fL (80.0-98.0); Monocytes Absolute Auto 0.5 X10*3/uL (0.1-1.2); Monocytes Percent Auto 6.2 % (2-11); Neutrophils Absolute Auto 5.1 x10*3/uL (2.0-8.3); Neutrophils Percent Auto 58.2 % (45-73); Platelet Count 141 X10*3/uL (160-400); Red Blood Count 5.13 X10*6/uL (4.60-5.80); Red Cell Distribution Width 12.3 % (11.0-16.0); White Blood Count 8.7 X10*3/uL (4.8-10.8)
[2023-04-09 13:47] LABS: Alanine Aminotransferase 37 U/L (0-40); Albumin Level 4.1 g/dL (3.5-5.0); Alkaline Phosphatase 40 U/L (39-117); Anion Gap 12 (12-20); Aspartate Amino Transferase 35 U/L (5-37); Bilirubin Total 1.7 mg/dL (0.0-1.0); Blood Urea Nitrogen 12 mg/dL (9-16); Calcium 9.5 mg/dL (8.4-10.2); Carbon Dioxide 29 mmol/L (22-29); Chloride 104 mmol/L (96-108); Cholesterol 120 mg/dL (<200); Estimated Glomerular Filt Rate > 60; Glucose Fasting 127 mg/dL (60-99); HDL Cholesterol 36 mg/dL (>40); LDL Cholesterol Calculated 54 mg/dL (<100); Potassium 4.2 mmol/L (3.3-5.1); Sodium 141 mmol/L (135-145); Total Protein 6.9 g/dL (6.5-8.0); Triglycerides 151 mg/dL (<150)
[2023-04-09 13:54] LABS: Estimated Average Glucose 123 mg/dL; Hemoglobin A1c % 5.9 % (<6.0)
[2023-04-09 14:01] LABS: Prostate Specific Antigen Scr 1.03 ng/mL (<0.05-4.0)
== END 2023-04-09 10:13 | disposition home or self-care (01) ==
LOC: HO.10HDL 10:12
PROVIDERS: Visit Provider Internal Medicine
DX: I48.0 Paroxysmal atrial fibrillation (principal); N40.0 Benign prostatic hyperplasia without lower urinary tract symptoms; M19.90 Unspecified osteoarthritis, unspecified site; R73.03 Prediabetes; I10 Essential (primary) hypertension; E78.5 Hyperlipidemia, unspecified; Z12.5 Encounter for screening for malignant neoplasm of prostate
CPT/HCPCS: 36415; 80053; 80061; 83036; 84153; 85025; 85610; 99211

== ENCOUNTER 2023-04-09 10:29 | Outpatient (AMB) | payer MEDICARE, SELFPAY ==
[2023-04-09 10:36] LABS: Prothrombin Time Whole Bld POC 25.5 sec (11.1-13.5); ~PT, ~INR - Anti Coag Clinic 2.1 (0.9-1.1)
--- NOTE | 2023-04-09 10:45 | MHC.OFFVISCO ---
Intake Intake Visit Reasons: Anticoagulation Allergies fentanyl [FENTANYL] Allergy (Severe, Verified 04/09/23 10:30) ANAPHYLAXIS protamine [PROTAMINE] Allergy (Severe, Verified 04/09/23 10:30) ANAPHYLAXIS rocuronium [ROCURONIUM] Allergy (Severe, Verified 04/09/23 10:30) ANAPHYLAXIS sevoflurane [SEVOFLURANE] Allergy (Severe, Verified 04/09/23 10:30) ANAPHYLAXIS Medication List - Last Reconciled 04/09/23 by Jeannie Leger RN amiodarone 100 mg PO DAILY atorvastatin 80 mg PO DAILY fluorouracil 5% 1 appl topical BID furosemide 40 mg PO DAILY gabapentin 200 mg PO BEDTIME gemfibrozil 600 mg PO BID losartan 50 mg PO DAILY metoprolol succinate ER 100 mg PO DAILY pantoprazole 40 mg PO DAILY potassium chloride ER 10 mEq PO DAILY 90 days tamsulosin 0.8 mg (2 x 0.4 mg) PO BEDTIME 90 days testosterone 2 pumps topically one pump to each shoulder daily; 28 days warfarin 5 mg See Protocol PO DAILY zolpidem 10 mg PO BEDTIME PRN Nursing Note INR: 2.1 in therapeutic range Medications and supplements reviewed No changes in health, diet, medications, or supplements, Denies any signs and symptoms of bleeding or bruising or clotting. 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
== END 2023-04-09 10:47 | disposition home or self-care (01) ==
LOC: HO.ACS 10:29
PROVIDERS: PCP Internal Medicine; Visit Provider Internal Medicine
DX: Z79.01 Long term (current) use of anticoagulants (principal)

== ENCOUNTER 2023-05-07 08:53 | Outpatient (AMB) | payer MEDICARE, SELFPAY ==
[2023-05-07 09:08] LABS: Prothrombin Time Whole Bld POC 28.9 sec (11.1-13.5); ~PT, ~INR - Anti Coag Clinic 2.4 (0.9-1.1)
--- NOTE | 2023-05-07 09:12 | MHC.OFFVISCO ---
Intake Intake Visit Reasons: Anticoagulation Allergies fentanyl [FENTANYL] Allergy (Severe, Verified 05/07/23 09:03) ANAPHYLAXIS protamine [PROTAMINE] Allergy (Severe, Verified 05/07/23 09:03) ANAPHYLAXIS rocuronium [ROCURONIUM] Allergy (Severe, Verified 05/07/23 09:03) ANAPHYLAXIS sevoflurane [SEVOFLURANE] Allergy (Severe, Verified 05/07/23 09:03) ANAPHYLAXIS Medication List - Last Reconciled 05/07/23 by Jane Stafford RN amiodarone 100 mg PO DAILY atorvastatin 80 mg PO DAILY fluorouracil 5% 1 appl topical BID furosemide 40 mg PO DAILY gabapentin 200 mg PO BEDTIME gemfibrozil 600 mg PO BID losartan 50 mg PO DAILY metoprolol succinate ER 100 mg PO DAILY pantoprazole 40 mg PO DAILY potassium chloride ER 10 mEq PO DAILY 90 days tamsulosin 0.8 mg (2 x 0.4 mg) PO BEDTIME 90 days testosterone 2 pumps topically one pump to each shoulder daily; 28 days warfarin 5 mg See Protocol PO DAILY zolpidem 10 mg PO BEDTIME PRN Nursing Note INR: 2.4 in therapeutic range OF 2-3 Medications and supplements reviewed No changes in health, diet, medications, or supplements, Denies any signs and symptoms of bleeding or bruising or clotting. Bleeding, bruising, clotting discussed Nutritional guidance given Dose: CONT USUAL DOSE F/U INR: 1 MONTH Patient verbalizes understanding of instructions given Questionnaires HAS-BLED Does the patient had uncontrolled Hypertension?: Yes Does the patient have renal disease?: No Does the patient have liver disease?: No Does the patient have a history of stroke?: No Has the patient had major bleeding or predisposition to bleeding?: No Does the patient have labile INRs?: No Is the patient over 65 years of age?: Yes Is the patient on medications that gives them a predisposition to bleeding?: Yes Does the patient use alcohol?: No HAS-BLED Score: 3 CHADSVASC Age: 75 or over Gender: Male Does the patient have a history of CHF?: Yes Does the patient have a history of Hypertension?: Yes Does the patient have a history of Stroke/TIA/Thromboembolism?: No Does the patient have a history of Vascular Disease (prior FL, PAD or aortic plaque)?: No Does the patient have a history of Diabetes?: No CHADS VACS Score: 4 Zeeshan Prediction Score Rsk VTE Active Cancer: No Previous VTE, excluding superficial vein thrombosis: No Reduced mobility: No Already known Thrombophilic Condition: Yes With-in last month Trauma and/or Surgery: No Elderly 70 year or older: Yes Heart and/or Respiratory Failure: Yes Acute Myocardial infarction and/or Ischemic Stroke: No Acute Infection and/or Rheumatologic Disorder: No Obesity (BMI 30 or greater): No Ongoing Hormonal Treatment: No Score: 5 Zeeshan Score less than 4; Low Risk of VTE Zeeshan Score 4 or greater; High Risk of VTE Coding Level of Care Code Est Patient Level 1 Diagnoses Current use of anticoagulant therapy Z79.01 Assessment & Plan Assessment & Plan (1) Current use of anticoagulant therapy: Code(s): Z79.01 - [facility]PC (current) use of anticoagulants Category: Medical
== END 2023-05-07 10:08 | disposition home or self-care (01) ==
LOC: HO.ACS 08:53
PROVIDERS: PCP Internal Medicine; Visit Provider Internal Medicine
DX: Z79.01 Long term (current) use of anticoagulants (principal)

== ENCOUNTER → 2023-05-07 08:53 | Outpatient (BNVA) | payer MEDICARE, SELFPAY | PROVIDERS: PCP Internal Medicine; Visit Provider Internal Medicine | DX: I48.20 Chronic atrial fibrillation, unspecified (principal); Z79.01 Long term (current) use of anticoagulants; Z51.81 Encounter for therapeutic drug level monitoring | CPT/HCPCS: 85610; 99211 ==

== ENCOUNTER 2023-06-04 08:40 | Outpatient (AMB) | payer MEDICARE, SELFPAY ==
[2023-06-04 08:46] LABS: Prothrombin Time Whole Bld POC 33.3 sec (11.1-13.5); ~PT, ~INR - Anti Coag Clinic 2.8 (0.9-1.1)
--- NOTE | 2023-06-04 08:52 | MHC.OFFVISCO ---
Intake Intake Visit Reasons: Anticoagulation Allergies fentanyl [FENTANYL] Allergy (Severe, Verified 06/04/23 08:41) ANAPHYLAXIS protamine [PROTAMINE] Allergy (Severe, Verified 06/04/23 08:41) ANAPHYLAXIS rocuronium [ROCURONIUM] Allergy (Severe, Verified 06/04/23 08:41) ANAPHYLAXIS sevoflurane [SEVOFLURANE] Allergy (Severe, Verified 06/04/23 08:41) ANAPHYLAXIS Medication List - Last Reconciled 06/04/23 by Jane Stafford RN amiodarone 100 mg PO DAILY atorvastatin 80 mg PO DAILY fluorouracil 5% 1 appl topical BID furosemide 40 mg PO DAILY gabapentin 200 mg PO BEDTIME gemfibrozil 600 mg PO BID losartan 50 mg PO DAILY metoprolol succinate ER 100 mg PO DAILY pantoprazole 40 mg PO DAILY potassium chloride ER 10 mEq PO DAILY 90 days tamsulosin 0.8 mg (2 x 0.4 mg) PO BEDTIME 90 days testosterone 2 pumps topically one pump to each shoulder daily; 28 days warfarin 5 mg See Protocol PO DAILY zolpidem 10 mg PO BEDTIME PRN Nursing Note INR: 2.8 in therapeutic range Medications and supplements reviewed No changes in health, diet, medications, or supplements, Denies any signs and symptoms of bleeding or bruising or clotting. 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
== END 2023-06-04 09:02 | disposition home or self-care (01) ==
LOC: HO.ACS 08:40
PROVIDERS: PCP Internal Medicine; Visit Provider Internal Medicine
DX: Z79.01 Long term (current) use of anticoagulants (principal)

== ENCOUNTER → 2023-06-04 08:40 | Outpatient (BNVA) | payer MEDICARE, SELFPAY | PROVIDERS: PCP Internal Medicine; Visit Provider Internal Medicine | DX: I48.20 Chronic atrial fibrillation, unspecified (principal); Z79.01 Long term (current) use of anticoagulants; Z51.81 Encounter for therapeutic drug level monitoring | CPT/HCPCS: 85610; 99211 ==

== ENCOUNTER 2023-06-16 10:24 | Outpatient (REF) | payer MEDICARE, SELFPAY ==
[2023-06-16 11:01] LABS: Hematocrit 46.4 % (42.0-52.0); Hemoglobin 16.1 g/dl (14.0-18.0); Mean Corpuscular HGB Conc 34.7 g/dl (31.0-36.0); Mean Corpuscular Hemoglobin 31.6 pg (27.0-33.0); Mean Platelet Volume 10.8 fL (9.4-12.4); Platelet Count 143 X10*3/uL (160-400); Red Cell Distribution Width 12.3 % (11.0-16.0); White Blood Count 8.5 X10*3/uL (4.8-10.8)
[2023-06-16 13:04] LABS: Prostate Specific Antigen 0.99 ng/mL (<0.05-4.0)
[2023-06-20 15:48] LABS: Testosterone, Total 502 ng/dL (250-1100)
== END 2023-06-16 10:25 | disposition home or self-care (01) ==
LOC: HO.10HDL 10:24
PROVIDERS: Visit Provider Urology
DX: E29.1 Testicular hypofunction (principal); Z12.5 Encounter for screening for malignant neoplasm of prostate
CPT/HCPCS: 36415; 84153; 84403; 85027

== ENCOUNTER → 2023-07-02 08:50 | Outpatient (BNVA) | payer MEDICARE, SELFPAY | PROVIDERS: PCP Internal Medicine; Visit Provider Internal Medicine | DX: I48.20 Chronic atrial fibrillation, unspecified (principal); Z79.01 Long term (current) use of anticoagulants; Z51.81 Encounter for therapeutic drug level monitoring | CPT/HCPCS: 85610; 99211 ==

== ENCOUNTER 2023-07-07 13:12 | Outpatient (AMB) | payer MEDICARE, SELFPAY ==
[2023-07-07 13:15] VITALS: BP 120/68; PULSE 68; BMI 35.9
--- NOTE | 2023-07-07 13:15 | A.OFFVIS_ITS ---
Intake Vital Signs 07/07/23 13:15 Height 5 ft 8 in Weight 235 lb 14.314 oz BMI 35.9 BP 120/68 Blood Pressure Location Lt brachial Position Sitting Pulse 68 Pulse Source Monitor Intake Visit Reasons: /LT eye Cataract surgery Intake Note: pt is here for ov due to eye surgery pt is doing good Allergies fentanyl [FENTANYL] Allergy (Severe, Verified 07/02/23 09:03) ANAPHYLAXIS protamine [PROTAMINE] Allergy (Severe, Verified 07/02/23 09:03) ANAPHYLAXIS rocuronium [ROCURONIUM] Allergy (Severe, Verified 07/02/23 09:03) ANAPHYLAXIS sevoflurane [SEVOFLURANE] Allergy (Severe, Verified 07/02/23 09:03) ANAPHYLAXIS HPI HPI Comments History of Present Illness Details 77-year-old male presents today after no t being seen since Mar 2021. He has a history of PAF and HFpEF. He is undergoing cataract surgery soon. His surgery date is planned for 07/16/2023. He reports he has been doing well since his last visit. 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 He denies any anginal symptoms or symptoms of fluid overload. [facility] Medical History (HFpEF) heart failure with preserved ejection fraction Paroxysmal atrial fibrillation HTN (hypertension) History of cardioversion Benign prostatic hyperplasia with post-void dribbling Hypogonadism in male Surgical History History of penile implant History of cardiac radiofrequency ablation (RFA) Hx of endoscopy Hx of colonoscopy Family History Father No problems noted. Mother CVD (cardiovascular disease) Heart murmur Social History Current occupational status: retired Current occupation: Rt handed Review of Systems Const Denies weakness ENT Denies dizziness Card Denies chest pain, Denies chest pain with activity, Denies syncope, Denies rapid heart rate, Denies pedal edema, Denies edema, Denies leg edema, Denies lightheadedness, Denies palpitations, Denies dyspnea, Denies dyspnea on exertion and Denies orthopnea Resp Denies cough, Denies dyspnea and Denies dyspnea on exertion GI Denies hematochezia and Denies change in stool character Musc Denies abnormal gait, Denies muscle cramps, Denies muscle weakness, Denies numbness, Denies radiating pain into limb and Denies tingling Neuro Denies abnormal gait, Denies dizziness, Denies syncope, Denies numbness, Denies tingling and Denies weakness Endo Denies palpitations Physical Exam Vital Signs: Last Vital Signs Pulse 68 07/07/23 13:15 BP 120/68 07/07/23 13:15 BMI result Body Mass Index 35.9 Const General: healthy appearing and no acute distress Orientation/consciousness: patient oriented x3 HEENT Head: Yes normal to inspection Eyes General: appearance normal, both eyes and all related structures Neck Neck: Yes normal visual inspection Chest Chest palpation & inspection: normal inspection of the chest Resp Effort & Inspection: normal respiratory effort Auscultation: clear to auscultation bilaterally Cardio Jugular venous distension: no JVD Palpation: normal PMI Rate: regular rate Rhythm: regular rhythm Heart sounds: S1 normal heart sound present, S2 normal heart sound present, no click, no gallops, no murmurs and no rubs GI Inspection: Yes normal to inspection Palpation (GI): Soft to palpation Skin General skin exam: no rashes or lesions noted Neuro General: patient oriented x3 Extrem General: Yes normal to inspection Psych Appearance: grossly normal Office Procedures EKG Details: EKG today. Sinus Rhythm with 1st degree AV block. Rate 68 bpm. QRS 84ms. QTc 448ms. CA 220ms. No significant change from prior. [id number], Complete Assessment & Plan Assessment & Plan (1) Paroxysmal atrial fibrillation: Code(s): I48.0 - Paroxysmal atrial fibrillation (2) (HFpEF) heart failure with preserved ejection fraction: Code(s): I50.30 - Unspecified diastolic (congestive) heart failure (3) Pre-operative cardiovascular examination: Code(s): Z01.810 - Encounter for preprocedural cardiovascular examination Plan Patient currently in sinus rhythm per auscultation and EKG. Patient on low dose amiodarone therapy. Will get TSH, liver panel, and chest x-ray. Will does not appear fluid overloaded today. Avoid salt loading. On furosemide. Will repeat echocardiogram. Patient is cleared as low cardiac risk for cataract surgery. Continue medications in the post operative period. Avoid stimulants to avoid rapid rates with atrial fibrillation. Orders: Orders TSH reflex Free T4 Today I48.0 - Paroxysmal atrial fibrillation, Z79.899 - Oth er intermodal customer service (current) drug therapy XR chest 2V Today I48.0 - Paroxysmal atrial fibrillation, Z79.899 - Other intermodal customer service (current) drug therapy CA echo transthoracic complete 07/07/23 I48.0 - Paroxysmal atrial fibrillation Liver Panel Today I48.0 - Paroxysmal atrial fibrillation, Z79.899 - Other intermodal customer service (current) drug therapy Coding Level of Care Code Est Pt Level 4 (00835) Diagnoses Paroxysmal atrial fibrillation I48.0 (HFpEF) heart failure with preserved ejection fraction I50.30 Pre-operative cardiovascular examination Z01.810 CPT Codes EKG - CPT: [id number], Complete ([id number])
== END 2023-07-07 13:38 | disposition home or self-care (01) ==
PROVIDERS: PCP Internal Medicine; Visit Provider Nurse Practitioner
DX: I44.0 Atrioventricular block, first degree (principal)
CPT/HCPCS: 93010; 99214

== ENCOUNTER → 2023-07-07 13:12 | Outpatient (BNVA) | payer MEDICARE, SELFPAY | PROVIDERS: PCP Internal Medicine; Visit Provider Nurse Practitioner | DX: Z01.810 Encounter for preprocedural cardiovascular examination (principal); I48.0 Paroxysmal atrial fibrillation; I50.30 Unspecified diastolic (congestive) heart failure | CPT/HCPCS: 93005; 99212 ==

== ENCOUNTER 2023-07-08 11:30 | Outpatient (REF) | payer MEDICARE, SELFPAY ==
[2023-07-08 14:06] LABS: Alanine Aminotransferase 35 U/L (0-40); Alkaline Phosphatase 40 U/L (39-117); Aspartate Amino Transferase 33 U/L (5-37); Bilirubin Direct 0.4 mg/dL (0.0-0.5); Bilirubin Total 1.5 mg/dL (0.0-1.0); TSH reflex Free T4 1.72 uIU/mL (0.32-4.0); Total Protein 6.8 g/dL (6.5-8.0)
== END 2023-07-08 11:31 | disposition home or self-care (01) ==
LOC: HO.10HDL 11:30
PROVIDERS: Visit Provider Nurse Practitioner
DX: I48.0 Paroxysmal atrial fibrillation (principal); Z79.899 Other long term (current) drug therapy
CPT/HCPCS: 36415; 80076; 84443

== ENCOUNTER → 2023-07-13 12:37 | Outpatient (REF) | payer MEDICARE, SELFPAY ==
--- NOTE | 2023-07-13 12:41 | CA_ITS ---
Transthoracic Echocardiogram Patient (Last, First, Middle): Wesley Berg E Gender: Male Date of : 1945 Age: 77 Procedure Date: 07/13/2023 Procedure Type: Transthoracic Echocardiogram Location: OP Height: 170.18 cm Weight: 98.43 kg BSA: 2.09 m2 Heart Rate: 55 bpm BP: 122 / 66 mmHg Technical Project Lead: SB Referring MD: Imani Geiger NP Manager Metal: Jose De Jesus Vicente MD Symptoms: I48.0 - Paroxysmal atrial fibrillation Study Quality: Adequate ECG Rhythm: Bradycardia Conclusions: - 1. Normal LV ejection fraction 55-60% with pseudonormal filling pattern 2. Trace aortic regurgitation 3. Normal RV systolic pressure 4. Mildly dilated ascending aorta at 3.8 cm 5. No gross pericardial effusion Findings Left Ventricle Normal left ventricular size, thickness, and systolic function. The visually estimated ejection fraction is between 55-60%. Spectral Doppler is indicative of a pseudonormal filling pattern. E/E prime ratio is between 8 and 15 consistent with indeterminate filling pressures. Right Ventricle Normal right ventricular cavity size and systolic function. Atria The left atrium is likely dilated. There is no evidence of interatrial shunt. The right atrium is normal in size. Aortic Valve There is mild calcification of the aortic valve. There is no aortic valve stenosis. There is trace (trivial) aortic valve regurgitation. Mitral Valve There is mild anterior and posterior mitral leaflet thickening. There is trace mitral valve regurgitation. There is no mitral valve stenosis. Tricuspid Valve Likely normal tricuspid valve structure and function. There is trace tricuspid valve regurgitation. The right ventricular systolic pressure is normal. The right ventricular systolic pressure is 25 mmHg. Normal right atrial pressure. There is no evidence of pulmonary hypertension. Great Vessels All visible segments of the aorta are normal in size. The pulmonary artery was not well visualized. There is mild dilatation of the ascending aorta measuring 3.80 cm. Venous The inferior vena cava is normal in size. Inferior vena cava flow is normal. Pericardium/Pleural There is no evidence of pericardial effusion. Prior Study Comparison Changes noted compared to prior study dated: 10/17/2021. LV diastolic function seems to have improved. RV systolic pressures have improved. Measurements 2D Linear Measurements IVSd: 0.94 0.6-0.9/0.6-1.0 cm LVIDd: 5.04 3.9-5.3/4.2-5.9 cm LVIDd Index: 2.41 2.4-3.2/2.2-3.1 cm/m2 LVIDs: 3.16 2.0-3.6 cm LVPWd: 0.88 0.7-1.1 cm LA Diam: 4.30 2.7-3.8/3.0-4.0 cm LAIDs Index: 2.06 1.5-2.3 cm/m2 LV Mass: 202.30 67-162/88-224 g LV Mass Index: 96.80 43-95/49-115 g/m2 LVOT Diam: 2.10 3.0+(-)1.3 cm 2D Systolic Function EF 4C: 58.60 >55% EF 2C: 58.80 >55% EF BiP: 56.50 >55% Mitral Valve MV Pk E: 0.77 MV PK A: 0.53 MV Decel Time: 187.00 E/A: 1.50 E'Lateral: 6.85 E'Medial: 3.48 E/E' Med: 22.20 E/E' Lat: 11.30 PHT: 55.00 MVA PHT: 4.00 Decel [place]: 4.13 Aortic Valve AoV Pk Sonu: 1.36 AoV Pk Grad: 7.00 KIMBERLY: 2.63 LVOT LVOT Pk Sonu: 1.06 LVOT Mn Sonu: 0.63 LVOT VTI: 0.21 LVOT Pk Grad: 4.00 LVOT Mn Grad: 2.00 LVOT Diam: 2.10 LVOT Area: 3.46 Diastolic Function MV Pk E: 0.77 MV Pk A: 0.53 E/A: 1.50 E'Medial: 3.48 E/E' Med: 22.20 E' Laterial: 6.85 E/E' Lat: 11.30 Right Ventricle TAPSE (mm): 22.50 TVS' Sonu: 14.40 Tricuspid Valve TR Pk Sonu: 2.33 TR Pk Grad: 22.00 RA Press: 3.00 RVSP: 25.00 Great Vessels Aorta Sinus of Valsalva: 3.30 2.0-3.5 cm Ao Asc: 3.80 2.1-3.4 cm Pulmonary Veins Pulm Vein S/D 0.60 Pulmonary Valve PV Pk Sonu: 1.29 Peak PV Grad: 7.00 CA Pk Sonu: 1.95 Updated in Other Vendor System with Status of Final Jose De Jesus Vicente MD electronically signed on 07/14/2023 11:01:13 AM with status of Final
== END ==
LOC: HO.CARD 12:37
PROVIDERS: PCP Internal Medicine; Visit Provider Nurse Practitioner
DX: I48.0 Paroxysmal atrial fibrillation (principal)
CPT/HCPCS: 93306

== ENCOUNTER → 2023-07-13 12:41 | Outpatient (BNV) | payer MEDICARE, SELFPAY | PROVIDERS: PCP Internal Medicine; Visit Provider Internal Medicine Cardiovascular Disease | DX: I35.1 Nonrheumatic aortic (valve) insufficiency (principal); I35.8 Other nonrheumatic aortic valve disorders | CPT/HCPCS: 93306 ==

== ENCOUNTER → 2023-07-16 13:57 | Outpatient (BNVA) | payer MEDICARE, SELFPAY | PROVIDERS: PCP Internal Medicine; Visit Provider Internal Medicine ==

== ENCOUNTER 2023-07-23 09:07 | Outpatient (AMB) | payer MEDICARE, SELFPAY ==
--- NOTE | 2023-07-23 09:08 | MHC.OFFVIS ---
Intake Visit Reasons: 6M PSA/TESTOSTERONE(SET) Intake Note: Patient is Present for Telephone Follow Up Urology Med:Testosterone, Tamsulosin Antibiotic Allergy:None Blood Thinner:Warfarin Allergies fentanyl [FENTANYL] Allergy (Severe, Verified 07/02/23 09:03) ANAPHYLAXIS protamine [PROTAMINE] Allergy (Severe, Verified 07/02/23 09:03) ANAPHYLAXIS rocuronium [ROCURONIUM] Allergy (Severe, Verified 07/02/23 09:03) ANAPHYLAXIS sevoflurane [SEVOFLURANE] Allergy (Severe, Verified 07/02/23 09:03) ANAPHYLAXIS Medication List - Last Reconciled 07/23/23 by Nilesh Bradshaw MD amiodarone 100 mg PO DAILY atorvastatin 80 mg PO DAILY fluorouracil 5% 1 appl topical BID furosemide 40 mg PO DAILY gabapentin 200 mg PO BEDTIME gemfibrozil 600 mg PO BID losartan 50 mg PO DAILY metoprolol succinate ER 100 mg PO DAILY moxifloxacin 0.5% drps ophthalmic (eye) pantoprazole 40 mg PO DAILY potassium chloride ER 10 mEq PO DAILY 90 days testosterone 2 pumps topically one pump to each shoulder daily; 28 days warfarin 5 mg See Protocol PO DAILY zolpidem 10 mg PO BEDTIME PRN HPI Comments Details: Wesley is a very pleasant male. He is a patient of Dr. Schultz. He is seen for the following urologic conditions - hypogonadism - erectile dysfunction - lower urinary tract symptoms Telemedicine Evaluation 15 min Consultation Dox2[employer] Mk Video Testosterone in range, lower end for him Continue with tamsulosin 0.8 Reactivated prosthetic Six month follow-up Hypogonadism Longstanding - has been on replacement since 1999 - Patient came off testosterone in 2022. Testosterone promptly dropped from 630 to 200. This was clinical evidence of hypogonadism Uses gel Variable testosterone on follow-up Well-being is stable and improved with medication Laboratories - 12/11 T 592, P99, Hct 47, 06/11 705 0.9 44.5, 12/12 630 1.0 45, 05/15 206, 01/12 T 553 P 1.0, 06/13 504 1.0 46 Continue with application in surveillance Erectile dysfunction Status post removal and replacement of penile implant.?? Lower urinary tract symptoms Longstanding Current therapy tamsulosin 0.8 mg Current symptoms include nocturia PFSH Medical History (HFpEF) heart failure with preserved ejection fraction Paroxysmal atrial fibrillation HTN (hypertension) History of cardioversion Benign prostatic hyperplasia with post-void dribbling Hypogonadism in male Surgical History History of penile implant History of cardiac radiofrequency ablation (RFA) Hx of endoscopy Hx of colonoscopy Family History Father No problems noted. Mother CVD (cardiovascular disease) Heart murmur Social History Current occupational status: retired Current occupation: Rt handed Review of Systems Const All systems reviewed & are unremarkable except as noted in HPI and below Reports no additional complaints Resp Reports no additional complaints GI Reports no additional complaints Reports as per HPI Musc Reports no additional complaints Physical Exam Telemedicine evaluation Appropriate responses Regular breathing rate and rhythm HEENT Head: Yes normal to inspection Ears: hearing grossly normal bilaterally Eyes General: appearance normal, both eyes and all related structures Neck Neck: Yes normal visual inspection Chest Chest palpation & inspection: normal inspection of the chest Resp Effort & Inspection: normal respiratory effort and able to speak in complete sentences Telehealth Telehealth Telehealth Platform: Proenza Schouer Location of provider rendering services: practice address Location of patient: address on file Patient Identification confirmed using: Name, : Yes Telehealth method: video Patient verbally consented to treatment: Yes Patient verbally consented to billing insurance company: Yes Patient informed of any privacy concerns related to visit: Yes Minutes spent on Phone/Video with Pt.: 15 Assessment & Plan Assessment & Plan (1) Hypogonadism in male: Comment: Testosterone gel Code(s): E29.1 - Testicular hypofunction Category: Medical Plan Six-month follow-up labs Orders: Orders Testosterone, Total 6 Months E29.1 - Testicular hypofunction Complete Blood Count no Diff 6 Months E29.1 - Testicular hypofunction Prostate Specific Antigen 6 Months E29.1 - Testicular hypofunction Medications: Refilled testosterone 2 pumps topically one pump to each shoulder daily; 28 days 75 grams 5RF E29.1 - Testicular hypofunction Discontinued tamsulosin Discontinued Reason: Patient Completed Course 0.8 mg (2 x 0.4 mg) PO BEDTIME 90 days 180 caps 1RF N39.43 - Post-void dribbling, N40.1 - Benign prostatic hyperplasia with lower urinary tract symptoms Patient Instructions: Imaging studies, laboratory and physical exam results were discussed and reviewed in detail. No major barriers to patient understanding were identified. An opportunity to ask questions regarding the treatment plan was provided. All questions were answered. The patient expressed understanding and agreement with the above treatment plan. The patient is aware they should contact our office by phone for worsening of their current condition or the appearance of new urologic symptoms. Compliance is encouraged with any medications and followup testing that is ordered. It is a privilege to participate in the urologic care of your patient. If you have any questions or concerns regarding treatment for the above conditions, or other urologic issues, please do not hesitate to contact me. The office telephone contact is [phone]. This note is constructed using voice recognition software. While every effort has been made to ensure accuracy automatic oven operator errors may have been included. Yours sincerely, Dr Nilesh Bradshaw MD, [facility] - Urology Providers of Expert, Compassionate Care for the Genitourinary System Coding Level of Care Code Tele Est Pt Level 4 (51223) Diagnoses Hypogonadism in male E29.1
== END 2023-07-23 10:30 | disposition home or self-care (01) ==
LOC: HO.HUSH 09:07
PROVIDERS: PCP Internal Medicine; Visit Provider Urology
DX: E29.1 Testicular hypofunction (principal)
CPT/HCPCS: 99214

== ENCOUNTER → 2023-07-23 09:07 | Outpatient (BNVA) | payer MEDICARE, SELFPAY | PROVIDERS: PCP Internal Medicine; Visit Provider Urology ==

== ENCOUNTER 2023-07-24 08:48 | Outpatient (AMB) | payer MEDICARE, SELFPAY ==
--- NOTE | 2023-07-24 09:03 | MHC.OFFVISCO ---
Intake Intake Visit Reasons: Anticoagulation Allergies fentanyl [FENTANYL] Allergy (Severe, Verified 07/24/23 08:51) ANAPHYLAXIS protamine [PROTAMINE] Allergy (Severe, Verified 07/24/23 08:51) ANAPHYLAXIS rocuronium [ROCURONIUM] Allergy (Severe, Verified 07/24/23 08:51) ANAPHYLAXIS sevoflurane [SEVOFLURANE] Allergy (Severe, Verified 07/24/23 08:51) ANAPHYLAXIS Medication List - Last Reconciled 07/24/23 by Jane Stafford RN amiodarone 100 mg PO DAILY atorvastatin 80 mg PO DAILY fluorouracil 5% 1 appl topical BID furosemide 40 mg PO DAILY gabapentin 200 mg PO BEDTIME gemfibrozil 600 mg PO BID losartan 50 mg PO DAILY metoprolol succinate ER 100 mg PO DAILY moxifloxacin 0.5% drps ophthalmic (eye) pantoprazole 40 mg PO DAILY potassium chloride ER 10 mEq PO DAILY 90 days testosterone 2 pumps topically one pump to each shoulder daily; 28 days warfarin 5 mg See Protocol PO DAILY zolpidem 10 mg PO BEDTIME PRN Nursing Note INR 1.9?out of therapeutic range 2-3 Medications and supplements reviewed: no changes Patient status: S/P cataract surgery with a 4 day hold of warfarin restarted on 07/16/23, 8 days ago. Medications or supplements: no changes Diet: no changes Denies any signs and symptoms of bleeding or clotting or unusual bruising Bleeding, bruising, clotting discussed Nutritional guidance given: to avoid greens today and tomorrow Dose: usual dose of 5mg X 3 days and 2.5mg X 4 days F/U INR Date : 1 month?? Patient verbalizing understanding of instructions given. Coding Level of Care Code Est Patient Level 1 Diagnoses Current use of anticoagulant therapy Z79.01 Results AMB INR Fingerstick AMB INR Fingerstick 1.9 Last Edit by Jane Stafford RN on 07/24/23 08:58 interface delay Assessment & Plan Assessment & Plan (1) Current use of anticoagulant therapy: Code(s): Z79.01 - long-term (current) use of anticoagulants Category: Medical
[2023-07-24 09:04] LABS: ~PT, ~INR - Anti Coag Clinic 1.9 (0.9-1.1)
== END 2023-07-24 09:08 | disposition home or self-care (01) ==
LOC: HO.ACS 08:48
PROVIDERS: PCP Internal Medicine; Visit Provider Internal Medicine
DX: Z79.01 Long term (current) use of anticoagulants (principal)

== ENCOUNTER → 2023-07-24 08:48 | Outpatient (BNVA) | payer MEDICARE, SELFPAY | PROVIDERS: PCP Internal Medicine; Visit Provider Internal Medicine | DX: I48.20 Chronic atrial fibrillation, unspecified (principal); Z51.81 Encounter for therapeutic drug level monitoring; Z79.01 Long term (current) use of anticoagulants | CPT/HCPCS: 85610; 99211 ==

== ENCOUNTER 2023-08-21 08:53 | Outpatient (AMB) | payer MEDICARE, SELFPAY ==
[2023-08-21 09:01] LABS: Prothrombin Time Whole Bld POC 31.5 sec (11.1-13.5); ~PT, ~INR - Anti Coag Clinic 2.6 (0.9-1.1)
--- NOTE | 2023-08-21 09:11 | MHC.OFFVISCO ---
Intake Intake Visit Reasons: Anticoagulation Allergies fentanyl [FENTANYL] Allergy (Severe, Verified 08/21/23 08:56) ANAPHYLAXIS protamine [PROTAMINE] Allergy (Severe, Verified 08/21/23 08:56) ANAPHYLAXIS rocuronium [ROCURONIUM] Allergy (Severe, Verified 08/21/23 08:56) ANAPHYLAXIS sevoflurane [SEVOFLURANE] Allergy (Severe, Verified 08/21/23 08:56) ANAPHYLAXIS Medication List - Last Reconciled 08/21/23 by Jane Stafford, RN amiodarone 100 mg PO DAILY atorvastatin 80 mg PO DAILY fluorouracil 5% 1 appl topical BID furosemide 40 mg PO DAILY gabapentin 200 mg PO BEDTIME gemfibrozil 600 mg PO BID losartan 50 mg PO DAILY metoprolol succinate ER 100 mg PO DAILY moxifloxacin 0.5% drps ophthalmic (eye) pantoprazole 40 mg PO DAILY potassium chloride ER 10 mEq PO DAILY 90 days testosterone 2 pumps topically one pump to each shoulder daily; 28 days warfarin 5 mg See Protocol PO DAILY zolpidem 10 mg PO BEDTIME PRN Nursing Note INR: 2.6 in therapeutic range of 2-3 Medications and supplements reviewed: no changes No changes in health, diet, medications, or supplements, Denies any signs and symptoms of bleeding or bruising or clotting. Bleeding, bruising, clotting discussed Nutritional guidance given to continue to balance fruits and vegetables Dose: 5mg X 3 days and 2.5mg X 4 days F/U INR: 4 weeks Patient verbalizes understanding of instructions given Coding Level of Care Code Est Patient Level 1 Diagnoses Current use of anticoagulant therapy Z79.01 Assessment & Plan Assessment & Plan (1) Current use of anticoagulant therapy: Code(s): Z79.01 - [facility] (current) use of anticoagulants Category: Medical
== END 2023-08-21 09:13 | disposition home or self-care (01) ==
LOC: HO.ACS 08:53
PROVIDERS: PCP Internal Medicine; Visit Provider Internal Medicine
DX: Z79.01 Long term (current) use of anticoagulants (principal)

== ENCOUNTER → 2023-08-21 08:53 | Outpatient (BNVA) | payer MEDICARE, SELFPAY | PROVIDERS: PCP Internal Medicine; Visit Provider Internal Medicine | DX: I48.20 Chronic atrial fibrillation, unspecified (principal); Z79.01 Long term (current) use of anticoagulants; Z51.81 Encounter for therapeutic drug level monitoring | CPT/HCPCS: 85610; 99211 ==

== ENCOUNTER 2023-09-18 11:02 | Outpatient (AMB) | payer MEDICARE, SELFPAY ==
[2023-09-18 11:38] LABS: Prothrombin Time Whole Bld POC 35.1 sec (11.1-13.5); ~PT, ~INR - Anti Coag Clinic 2.9 (0.9-1.1)
--- NOTE | 2023-09-18 11:39 | MHC.OFFVISCO ---
Intake Intake Visit Reasons: Anticoagulation Allergies fentanyl [FENTANYL] Allergy (Severe, Verified 09/18/23 11:33) ANAPHYLAXIS protamine [PROTAMINE] Allergy (Severe, Verified 09/18/23 11:33) ANAPHYLAXIS rocuronium [ROCURONIUM] Allergy (Severe, Verified 09/18/23 11:33) ANAPHYLAXIS sevoflurane [SEVOFLURANE] Allergy (Severe, Verified 09/18/23 11:33) ANAPHYLAXIS Medication List - Last Reconciled 09/18/23 by Jane Bautista, RN amiodarone 100 mg PO DAILY atorvastatin 80 mg PO DAILY fluorouracil 5% 1 appl topical BID furosemide 40 mg PO DAILY gabapentin 200 mg PO BEDTIME gemfibrozil 600 mg PO BID losartan 50 mg PO DAILY metoprolol succinate ER 100 mg PO DAILY moxifloxacin 0.5% drps ophthalmic (eye) pantoprazole 40 mg PO DAILY potassium chloride ER 10 mEq PO DAILY 90 days tamsulosin 0.8 mg (2 x 0.4 mg) PO BEDTIME 90 days testosterone 2 pumps topically one pump to each shoulder daily; 28 days warfarin 5 mg See Protocol PO DAILY zolpidem 10 mg PO BEDTIME PRN Nursing Note Amb to ACS using cane, feeling ok Medications and supplements reviewed No changes in health, diet, medications, or supplements, Denies any signs and symptoms of bleeding, bruising, or clotting. INR 2.9 in therapeutic range continue usual dosing 5mg x 3 days and 2.5mg x 4 days Nutritional guidance given balance greens and reds in diet, be consistent- pt sts he eats what he wants, doesn't follow a diet F/U INR: 4 weeks Patient verbalizes understanding of instructions given Coding Level of Care Code Est Patient Level 1 Diagnoses Current use of anticoagulant therapy Z79.01 Time Spent (min) 15 Assessment & Plan Assessment & Plan (1) Current use of anticoagulant therapy: Code(s): Z79.01 - intermediate (current) use of anticoagulants Category: Medical
== END 2023-09-18 11:44 | disposition home or self-care (01) ==
LOC: HO.ACS 11:02
PROVIDERS: PCP Internal Medicine; Visit Provider Internal Medicine
DX: Z79.01 Long term (current) use of anticoagulants (principal)

== ENCOUNTER → 2023-09-18 11:02 | Outpatient (BNVA) | payer MEDICARE, SELFPAY | PROVIDERS: PCP Internal Medicine; Visit Provider Internal Medicine | DX: I48.20 Chronic atrial fibrillation, unspecified (principal); Z79.01 Long term (current) use of anticoagulants; Z51.81 Encounter for therapeutic drug level monitoring | CPT/HCPCS: 85610; 99211 ==

== ENCOUNTER 2023-10-20 09:12 | Outpatient (AMB) | payer MEDICARE, SELFPAY ==
[2023-10-20 09:19] LABS: Prothrombin Time Whole Bld POC 29.9 sec (11.1-13.5); ~PT, ~INR - Anti Coag Clinic 2.5 (0.9-1.1)
--- NOTE | 2023-10-20 09:26 | MHC.OFFVISCO ---
Intake Intake Visit Reasons: Anticoagulation Allergies fentanyl [FENTANYL] Allergy (Severe, Verified 10/20/23 09:13) ANAPHYLAXIS protamine [PROTAMINE] Allergy (Severe, Verified 10/20/23 09:13) ANAPHYLAXIS rocuronium [ROCURONIUM] Allergy (Severe, Verified 10/20/23 09:13) ANAPHYLAXIS sevoflurane [SEVOFLURANE] Allergy (Severe, Verified 10/20/23 09:13) ANAPHYLAXIS Medication List - Last Reconciled 10/20/23 by Jeannie Leger RN amiodarone 100 mg PO DAILY atorvastatin 80 mg PO DAILY fluorouracil 5% 1 appl topical BID furosemide 40 mg PO DAILY gabapentin 200 mg PO BEDTIME gemfibrozil 600 mg PO BID losartan 50 mg PO DAILY metoprolol succinate ER 100 mg PO DAILY moxifloxacin 0.5% drps ophthalmic (eye) pantoprazole 40 mg PO DAILY potassium chloride ER 10 mEq PO DAILY 90 days tamsulosin 0.8 mg (2 x 0.4 mg) PO BEDTIME 90 days testosterone 2 pumps topically one pump to each shoulder daily; 28 days warfarin 5 mg See Protocol PO DAILY zolpidem 10 mg PO BEDTIME PRN Nursing Note INR: 2.5 in therapeutic range Medications and supplements reviewed No changes in health, diet, medications, or supplements, Denies any signs and symptoms of bleeding or bruising or clotting. Bleeding, bruising, clotting discussed Nutritional guidance given Dose: 5MG X 3 DAYS/ 2.5MG X 4 DAYS F/U INR: 1 MONTH Patient verbalizes understanding of instructions given Coding Level of Care Code Est Patient Level 1 Diagnoses Current use of anticoagulant therapy Z79.01 Assessment & Plan Assessment & Plan (1) Current use of anticoagulant therapy: Code(s): Z79.01 - [facility] (current) use of anticoagulants Category: Medical
== END 2023-10-20 09:28 | disposition home or self-care (01) ==
LOC: HO.ACS 09:12
PROVIDERS: PCP Internal Medicine; Visit Provider Internal Medicine
DX: Z79.01 Long term (current) use of anticoagulants (principal)

== ENCOUNTER → 2023-10-20 09:12 | Outpatient (BNVA) | payer MEDICARE, SELFPAY | PROVIDERS: PCP Internal Medicine; Visit Provider Internal Medicine | DX: I48.20 Chronic atrial fibrillation, unspecified (principal); Z79.01 Long term (current) use of anticoagulants; Z51.81 Encounter for therapeutic drug level monitoring | CPT/HCPCS: 85610; 99211 ==

== ENCOUNTER 2023-11-16 09:11 | Outpatient (AMB) | payer MEDICARE, SELFPAY ==
--- NOTE | 2023-11-16 09:22 | MHC.OFFVISCO ---
Intake Intake Visit Reasons: Anticoagulation Allergies fentanyl [FENTANYL] Allergy (Severe, Verified 11/16/23 09:13) ANAPHYLAXIS protamine [PROTAMINE] Allergy (Severe, Verified 11/16/23 09:13) ANAPHYLAXIS rocuronium [ROCURONIUM] Allergy (Severe, Verified 11/16/23 09:13) ANAPHYLAXIS sevoflurane [SEVOFLURANE] Allergy (Severe, Verified 11/16/23 09:13) ANAPHYLAXIS Medication List - Last Reconciled 11/16/23 by Jane Stafford RN amiodarone 100 mg PO DAILY atorvastatin 80 mg PO DAILY fluorouracil 5% 1 appl topical BID furosemide 40 mg PO DAILY gabapentin 200 mg PO BEDTIME gemfibrozil 600 mg PO BID losartan 50 mg PO DAILY metoprolol succinate ER 100 mg PO DAILY moxifloxacin 0.5% drps ophthalmic (eye) pantoprazole 40 mg PO DAILY potassium chloride ER 10 mEq PO DAILY 90 days tamsulosin 0.8 mg (2 x 0.4 mg) PO BEDTIME 90 days testosterone 2 pumps topically one pump to each shoulder daily; 28 days warfarin 5 mg See Protocol PO DAILY zolpidem 10 mg PO BEDTIME PRN Nursing Note INR: 3.0 in therapeutic range of 2-3 Medications and supplements reviewed No changes in health, diet, medications, or supplements, Denies any signs and symptoms of bleeding or bruising or clotting. Bleeding, bruising, clotting discussed Nutritional guidance given Dose: 2.5mg X 4 days and 5mg X 3 days F/U INR: 4 weeks Patient verbalizes understanding of instructions given Coding Level of Care Code Est Patient Level 1 Diagnoses Current use of anticoagulant therapy Z79.01 Results AMB INR Fingerstick AMB INR Fingerstick 3.0 Last Edit by Jane Stafford RN on 11/16/23 09:21 interface delay Assessment & Plan Assessment & Plan (1) Current use of anticoagulant therapy: Code(s): Z79.01 - [facility] (current) use of anticoagulants Category: Medical
[2023-11-16 09:25] LABS: Prothrombin Time Whole Bld POC 35.9 sec (11.1-13.5)
== END 2023-11-16 09:25 | disposition home or self-care (01) ==
LOC: HO.ACS 09:11
PROVIDERS: PCP Internal Medicine; Visit Provider Internal Medicine
DX: Z79.01 Long term (current) use of anticoagulants (principal)

== ENCOUNTER → 2023-11-16 09:11 | Outpatient (BNVA) | payer MEDICARE, SELFPAY | PROVIDERS: PCP Internal Medicine; Visit Provider Internal Medicine | DX: I48.20 Chronic atrial fibrillation, unspecified (principal); Z79.01 Long term (current) use of anticoagulants; Z51.81 Encounter for therapeutic drug level monitoring | CPT/HCPCS: 85610; 99211 ==

== ENCOUNTER 2023-12-14 09:00 | Outpatient (AMB) | payer MEDICARE, SELFPAY ==
[2023-12-14 09:25] LABS: Prothrombin Time Whole Bld POC 31.3 sec (11.1-13.5); ~PT, ~INR - Anti Coag Clinic 2.6 (0.9-1.1)
--- NOTE | 2023-12-14 09:31 | MHC.OFFVISCO ---
Intake Intake Visit Reasons: Anticoagulation Allergies fentanyl [FENTANYL] Allergy (Severe, Verified 12/14/23 09:20) ANAPHYLAXIS protamine [PROTAMINE] Allergy (Severe, Verified 12/14/23 09:20) ANAPHYLAXIS rocuronium [ROCURONIUM] Allergy (Severe, Verified 12/14/23 09:20) ANAPHYLAXIS sevoflurane [SEVOFLURANE] Allergy (Severe, Verified 12/14/23 09:20) ANAPHYLAXIS Medication List - Last Reconciled 12/14/23 by Jane Stafford, RN amiodarone 100 mg PO DAILY atorvastatin 80 mg PO DAILY fluorouracil 5% 1 appl topical BID furosemide 40 mg PO DAILY gabapentin 200 mg PO BEDTIME gemfibrozil 600 mg PO BID losartan 50 mg PO DAILY metoprolol succinate ER 100 mg PO DAILY moxifloxacin 0.5% drps ophthalmic (eye) pantoprazole 40 mg PO DAILY potassium chloride ER 10 mEq PO DAILY 90 days tamsulosin 0.8 mg (2 x 0.4 mg) PO BEDTIME 90 days testosterone 2 pumps topically one pump to each shoulder daily; 28 days warfarin 5 mg See Protocol PO DAILY zolpidem 10 mg PO BEDTIME PRN Nursing Note INR: 2.6 in therapeutic range 2-3 Medications and supplements reviewed No changes in health, diet, medications, or supplements, Denies any signs and symptoms of bleeding or bruising or clotting. 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
== END 2023-12-14 09:32 | disposition home or self-care (01) ==
LOC: HO.ACS 09:00
PROVIDERS: PCP Internal Medicine; Visit Provider Internal Medicine
DX: Z79.01 Long term (current) use of anticoagulants (principal)

== ENCOUNTER → 2023-12-14 09:00 | Outpatient (BNVA) | payer MEDICARE, SELFPAY | PROVIDERS: PCP Internal Medicine; Visit Provider Internal Medicine | DX: I48.20 Chronic atrial fibrillation, unspecified (principal); Z79.01 Long term (current) use of anticoagulants; Z51.81 Encounter for therapeutic drug level monitoring | CPT/HCPCS: 85610; 99211 ==

== ENCOUNTER 2024-01-05 09:05 | Outpatient (REF) | payer MEDICARE, SELFPAY ==
--- NOTE | ~2024-01-05 | XR_ITS ---
EXAMINATION: XR CHEST 2 VIEWS CLINICAL INFORMATION: Paroxysmal atrial fibrillation I48.0. Patient states routine yearly CXR. COMPARISON: XR Chest 09/20/2020 TECHNIQUE: 2 views of the chest were obtained. FINDINGS: No significant abnormality is noted involving the heart, lungs, mediastinum, bony thorax or soft tissues. XR/XR chest 2V IMPRESSION: Unremarkable examination. Of note this chest x-ray was submitted for review on 03/08/2024 Electronically signed by: Flaco Frausto MD 03/08/2024 09:17 AM JEET
[2024-01-05 10:52] LABS: Hematocrit 44.6 % (42.0-52.0); Hemoglobin 15.3 g/dl (14.0-18.0); Mean Corpuscular HGB Conc 34.3 g/dl (31.0-36.0); Mean Corpuscular Hemoglobin 31.7 pg (27.0-33.0); Mean Corpuscular Volume 92.5 fL (80.0-98.0); Mean Platelet Volume 10.7 fL (9.4-12.4); Platelet Count 149 X10*3/uL (160-400); Red Blood Count 4.82 X10*6/uL (4.60-5.80); Red Cell Distribution Width 12.5 % (11.0-16.0); White Blood Count 10.1 X10*3/uL (4.8-10.8)
[2024-01-05 11:34] LABS: Alanine Aminotransferase 27 U/L (0-40); Alkaline Phosphatase 34 U/L (39-117); Anion Gap 13 (12-20); Aspartate Amino Transferase 25 U/L (5-37); Bilirubin Direct 0.5 mg/dL (0.0-0.5); Bilirubin Total 1.4 mg/dL (0.0-1.0); Blood Urea Nitrogen 11 mg/dL (9-16); Calcium 9.7 mg/dL (8.4-10.2); Carbon Dioxide 28 mmol/L (22-29); Chloride 106 mmol/L (96-108); Estimated Glomerular Filt Rate > 60; Glucose Random 121 mg/dL (60-115); Potassium 4.5 mmol/L (3.3-5.1); Sodium 142 mmol/L (135-145); Total Protein 6.6 g/dL (6.5-8.0)
[2024-01-05 11:51] LABS: TSH reflex Free T4 1.74 uIU/mL (0.32-4.0)
== END 2024-01-05 09:06 | disposition home or self-care (01) ==
LOC: HO.LAB 09:05
PROVIDERS: PCP Internal Medicine; Visit Provider Internal Medicine Cardiovascular Disease
DX: I48.0 Paroxysmal atrial fibrillation (principal); I11.0 Hypertensive heart disease with heart failure; I50.30 Unspecified diastolic (congestive) heart failure
CPT/HCPCS: 36415; 71046; 80048; 80076; 84443; 85027; 93005; 99212

== ENCOUNTER 2024-01-05 09:05 | Outpatient (AMB) | payer MEDICARE, SELFPAY ==
[2024-01-05 09:14] VITALS: BP 138/78; PULSE 61; BMI 33.9
--- NOTE | 2024-01-05 09:14 | MHC.OFFVIS ---
Vital Signs 01/05/24 09:14 Height 5 ft 8 in Weight 222 lb 10.67 oz BMI 33.9 BP 138/78 Blood Pressure Location Lt brachial Position Sitting Pulse 61 Pulse Source Monitor Intake Visit Reasons: 6 mth f/up Allergies fentanyl [FENTANYL] Allergy (Severe, Verified 12/14/23 09:20) ANAPHYLAXIS protamine [PROTAMINE] Allergy (Severe, Verified 12/14/23 09:20) ANAPHYLAXIS rocuronium [ROCURONIUM] Allergy (Severe, Verified 12/14/23 09:20) ANAPHYLAXIS sevoflurane [SEVOFLURANE] Allergy (Severe, Verified 12/14/23 09:20) ANAPHYLAXIS Medication List - Last Reconciled 01/05/24 by Jose De Jesus Vicente MD amiodarone 100 mg PO DAILY atorvastatin 80 mg PO DAILY fluorouracil 5% 1 appl topical BID furosemide 40 mg PO DAILY gabapentin 200 mg PO BEDTIME gemfibrozil 600 mg PO BID losartan 50 mg PO DAILY metoprolol succinate ER 100 mg PO DAILY moxifloxacin 0.5% drps ophthalmic (eye) pantoprazole 40 mg PO DAILY potassium chloride ER 10 mEq PO DAILY 90 days tamsulosin 0.8 mg (2 x 0.4 mg) PO BEDTIME 90 days testosterone 2 pumps topically one pump to each shoulder daily; 28 days warfarin 5 mg See Protocol PO DAILY zolpidem 10 mg PO BEDTIME PRN HPI Comments Details: Wesley comes for follow-up. He said he has been having more symptoms of fatigue and tiredness and takes daytime naps frequently although says that it is probably because he does not have much to do. However he remains active and walks around the yd to 3 times a day with the dogs for 20 minutes. He however said he can not do more exertional activity. Denies any orthopnea, PND, leg edema. Denies any exertional chest pain. No lightheadedness, syncope. No prolonged palpitation irregular heartbeat. No bleeding issues or neurologic events. INRs have remained stable. He comes after a very long gap. No recent chest x-ray. [facility] Medical History (HFpEF) heart failure with preserved ejection fraction Paroxysmal atrial fibrillation HTN (hypertension) History of cardioversion Benign prostatic hyperplasia with post-void dribbling Hypogonadism in male Surgical History History of penile implant History of cardiac radiofrequency ablation (RFA) Hx of endoscopy Hx of colonoscopy Family History Father No problems noted. Mother CVD (cardiovascular disease) Heart murmur Social History Current occupational status: retired Current occupation: Rt handed Review of Systems Const Denies weakness ENT Denies dizziness Card Denies chest pain, Denies chest pain with activity, Denies syncope, Denies rapid heart rate, Denies pedal edema, Denies edema, Denies leg edema, Denies lightheadedness, Denies palpitations, Denies dyspnea, Denies dyspnea on exertion and Denies orthopnea Resp Denies cough, Denies dyspnea and Denies dyspnea on exertion GI Denies hematochezia and Denies change in stool character Musc Denies abnormal gait, Denies muscle cramps, Denies muscle weakness, Denies numbness, Denies radiating pain into limb and Denies tingling Neuro Denies abnormal gait, Denies dizziness, Denies syncope, Denies numbness, Denies tingling and Denies weakness Endo Denies palpitations Physical Exam Vital Signs: Last Vital Signs Pulse 61 01/05/24 09:14 BP 138/78 01/05/24 09:14 BMI result Body Mass Index 33.9 Const General: cooperative, comfortable, no acute distress, alert and awake Nutritional Appearance: overweight Orientation/consciousness: patient oriented x3 Limitations: no limitations Neck Neck: Yes trachea midline, Yes supple and Yes no JVD Resp Effort & Inspection: normal respiratory effort Auscultation: clear to auscultation bilaterally Cardio Jugular venous distension: no JVD Palpation: normal PMI Rate: regular rate Rhythm: regular rhythm Heart sounds: S1 normal heart sound present, S2 normal heart sound present and Other heart sounds present ( S4 present) GI Auscultation: normal bowel sounds Skin General skin exam: no rashes or lesions noted Neuro General: patient oriented x3 and no focal motor deficits Extrem General: Yes no clubbing, cyanosis or edema Psych Appearance: grossly normal Office Procedures EKG Details: EKG shows sinus rhythm with first-degree AV block [place] 35660-[id number], Complete Assessment & Plan Assessment & Plan (1) Paroxysmal atrial fibrillation: Code(s): I48.0 - Paroxysmal atrial fibrillation Category: Medical Plan: Paroxysmal atrial fibrillation with heart failure syndrome. 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 Has been on amiodarone for many years. Has not had a chest x-ray in the recent time but has not been for office visit for a long time as well. Importance of follow-up for amiodarone toxicity was discussed with him. Will obtain chest x-ray and blood work today. Continue low-dose amiodarone therapy which has helped him significantly. Continue full oral anticoagulation, currently on warfarin therapy. This is being followed by [facility]. Maintain target INR between 2 and 3. Continue aggressive control blood pressure. (2) (HFpEF) heart failure with preserved ejection fraction: Code(s): I50.30 - Unspecified diastolic (congestive) heart failure Category: Medical Plan: Heart failure preserved ejection fraction, clinically euvolemic and well compensated. Has done well with rhythm control approach. Having increasing symptoms of fatigue and maybe shortness of breath. Will obtain echocardiogram to evaluate LV systolic and diastolic function to evaluate for pulmonary hypertension. Continue aggressive blood pressure control. Continue current diuretic dose. Daily weight monitoring avoidance of salt loading was discussed. Additional diuretics as need be. He understands agrees. Clinically appears to be euvolemic and well compensated today. (3) HTN (hypertension): Code(s): I10 - Essential (primary) hypertension Category: Medical Plan: Hypertension which is currently well optimized advised to monitor blood pressure at home maintain a log. Goal blood pressure less than 130/84. Low-salt diet was discussed. Advised to increase activity level as tolerated. Follow up in the clinic in 6 months for EKG in 1 year with me. Thank you for allowing me to partake in his care Orders: Orders Liver Panel Today I48.0 - Paroxysmal atrial fibrillation XR chest 2V Today I48.0 - Paroxysmal atrial fibrillation CA echo transthoracic complete Today I50.30 - Unspecified diastolic (congestive) heart failure Basic Metabolic Panel Today I48.0 - Paroxysmal atrial fibrillation Complete Blood Count no Diff Today I48.0 - Paroxysmal atrial fibrillation TSH reflex Free T4 Today I48.0 - Paroxysmal atrial fibrillation Coding Level of Care Code Est Pt Level 4 (60528) Complex EM visit Add On G2211 Diagnoses Paroxysmal atrial fibrillation I48.0 (HFpEF) heart failure with preserved ejection fraction I50.30 HTN (hypertension) I10 CPT Codes EKG - CPT: 39210-[id number], Complete ([id number])
== END 2024-01-05 09:48 | disposition home or self-care (01) ==
PROVIDERS: PCP Internal Medicine; Visit Provider Internal Medicine Cardiovascular Disease
DX: I48.0 Paroxysmal atrial fibrillation (principal); I50.30 Unspecified diastolic (congestive) heart failure; I10 Essential (primary) hypertension
CPT/HCPCS: 93010; 99214; G2211

== ENCOUNTER 2024-01-11 09:55 | Outpatient (AMB) | payer MEDICARE, SELFPAY ==
--- NOTE | 2024-01-11 10:04 | MHC.OFFVISCO ---
Intake Intake Visit Reasons: Anticoagulation Allergies fentanyl [FENTANYL] Allergy (Severe, Verified 01/11/24 10:00) ANAPHYLAXIS protamine [PROTAMINE] Allergy (Severe, Verified 01/11/24 10:00) ANAPHYLAXIS rocuronium [ROCURONIUM] Allergy (Severe, Verified 01/11/24 10:00) ANAPHYLAXIS sevoflurane [SEVOFLURANE] Allergy (Severe, Verified 01/11/24 10:00) ANAPHYLAXIS Medication List - Last Reconciled 01/11/24 by Courtney Dunn RN amiodarone 100 mg PO DAILY atorvastatin 80 mg PO DAILY fluorouracil 5% 1 appl topical BID furosemide 40 mg PO DAILY gabapentin 200 mg PO BEDTIME gemfibrozil 600 mg PO BID losartan 50 mg PO DAILY metoprolol succinate ER 100 mg PO DAILY moxifloxacin 0.5% drps ophthalmic (eye) pantoprazole 40 mg PO DAILY potassium chloride ER 10 mEq PO DAILY 90 days tamsulosin 0.8 mg (2 x 0.4 mg) PO BEDTIME 90 days testosterone 2 pumps topically one pump to each shoulder daily; 28 days warfarin 5 mg See Protocol PO DAILY zolpidem 10 mg PO BEDTIME PRN Nursing Note INR: 2.3- in therapeutic range of 2-3 Medications and supplements reviewed no changes No changes in health, diet, medications, or supplements, Denies any signs and symptoms of bleeding or bruising or clotting. 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
[2024-01-11 10:05] LABS: Prothrombin Time Whole Bld POC 27.3 sec (11.1-13.5); ~PT, ~INR - Anti Coag Clinic 2.3 (0.9-1.1)
== END 2024-01-11 10:09 | disposition home or self-care (01) ==
LOC: HO.ACS 09:55
PROVIDERS: PCP Internal Medicine; Visit Provider Internal Medicine
DX: Z79.01 Long term (current) use of anticoagulants (principal)

== ENCOUNTER 2024-01-11 10:18 | Outpatient (REF) | payer MEDICARE, SELFPAY ==
[2024-01-11 10:46] LABS: Hematocrit 42.2 % (42.0-52.0); Hemoglobin 14.7 g/dl (14.0-18.0); Mean Corpuscular HGB Conc 34.8 g/dl (31.0-36.0); Mean Corpuscular Volume 91.9 fL (80.0-98.0); Mean Platelet Volume 10.5 fL (9.4-12.4); Platelet Count 149 X10*3/uL (160-400); Red Blood Count 4.59 X10*6/uL (4.60-5.80); Red Cell Distribution Width 12.2 % (11.0-16.0); White Blood Count 8.6 X10*3/uL (4.8-10.8)
[2024-01-11 12:40] LABS: Prostate Specific Antigen 1.13 ng/mL (<0.05-4.0)
[2024-01-16 12:49] LABS: Testosterone, Total 435 ng/dL (250-1100)
== END 2024-01-11 10:19 | disposition home or self-care (01) ==
LOC: HO.10HDL 10:18
PROVIDERS: Visit Provider Urology
DX: E29.1 Testicular hypofunction (principal); Z12.5 Encounter for screening for malignant neoplasm of prostate
CPT/HCPCS: 36415; 84153; 84403; 85027; 85610; 99211

== ENCOUNTER 2024-01-22 10:16 | Outpatient (AMB) | payer MEDICARE, SELFPAY ==
--- NOTE | 2024-01-22 10:28 | MHC.OFFVIS ---
Intake Visit Reasons: 6m/PSA/Testo(set) Intake Note: Patient is Present for Follow Up PSA/Testo results Urology Medication: Tamsulosin, Testosterone Antibiotic Allergies: None Blood Thinners: Warfarin Recent LABS: 01/11/24 PSA: 1.13 TESTOSTERONE: 435 Student Ministries Director Required: No Accompanied by: Self / Same As Patient Allergies fentanyl [FENTANYL] Allergy (Severe, Verified 01/22/24 10:29) ANAPHYLAXIS protamine [PROTAMINE] Allergy (Severe, Verified 01/22/24 10:29) ANAPHYLAXIS rocuronium [ROCURONIUM] Allergy (Severe, Verified 01/22/24 10:29) ANAPHYLAXIS sevoflurane [SEVOFLURANE] Allergy (Severe, Verified 01/22/24 10:29) ANAPHYLAXIS Medication List - Last Reconciled 01/22/24 by Nilesh Bradshaw MD amiodarone 100 mg PO DAILY atorvastatin 80 mg PO DAILY fluorouracil 5% 1 appl topical BID furosemide 40 mg PO DAILY gabapentin 200 mg PO BEDTIME gemfibrozil 600 mg PO BID losartan 50 mg PO DAILY metoprolol succinate ER 100 mg PO DAILY moxifloxacin 0.5% drps ophthalmic (eye) pantoprazole 40 mg PO DAILY potassium chloride ER 10 mEq PO DAILY 90 days tamsulosin 0.8 mg (2 x 0.4 mg) PO BEDTIME 90 days testosterone 2 pumps topically one pump to each shoulder daily; 28 days warfarin 5 mg See Protocol PO DAILY zolpidem 10 mg PO BEDTIME PRN HPI Comments Details: Wesely is a very pleasant male. He is a patient of Dr. Schultz. He is seen for the following urologic conditions - hypogonadism - erectile dysfunction - lower urinary tract symptoms Testosterone above 400 Continues with gel Continue good activity from tamsulosin Did discuss his weakness of stream and possible need for prostate procedure. He is not interested in that currently. Amiodarone for cardiac therapy - known anti - testosterone side effects Hypogonadism Longstanding - has been on replacement since 1999 - Patient came off testosterone in 2022. Testosterone promptly dropped from 630 to 200. This was clinical evidence of hypogonadism Uses gel Variable testosterone on follow-up Well-being is stable and improved with medication Laboratories - 12/11 T 592, P99, Hct 47, 06/11 705 0.9 44.5, 12/12 630 1.0 45, 05/15 206, 01/12 T 553 P 1.0, 06/13 504 1.0 46, 01/13 435 Continue with application in surveillance Erectile dysfunction Status post removal and replacement of penile implant.?? Lower urinary tract symptoms Longstanding Current therapy tamsulosin 0.8 mg Current symptoms include nocturia PFSH Medical History (HFpEF) heart failure with preserved ejection fraction Paroxysmal atrial fibrillation HTN (hypertension) History of cardioversion Benign prostatic hyperplasia with post-void dribbling Hypogonadism in male Surgical History History of penile implant History of cardiac radiofrequency ablation (RFA) Hx of endoscopy Hx of colonoscopy Family History Father No problems noted. Mother CVD (cardiovascular disease) Heart murmur Social History Current occupational status: retired Current occupation: Rt handed Review of Systems Const Denies chills and Denies fever(s) Card Reports no additional complaints and Denies syncope Resp Denies cough GI Denies abdominal pain and Denies heartburn Reports as per HPI and Denies change in libido Neuro Denies syncope Psych Denies change in libido Endo Denies change in libido Physical Exam Const General: cooperative, healthy appearing, comfortable and no acute distress Orientation/consciousness: patient oriented x3 HEENT Face and sinus: Yes normal facial exam Mouth: moist mucous membranes Neck Neck: Yes normal visual inspection, Yes full ROM and Yes trachea midline Chest Chest palpation & inspection: normal inspection of the chest Resp Effort & Inspection: normal respiratory effort, able to speak in complete sentences and no respiratory distress GI Inspection: Yes normal to inspection Back/Spine/Pelvis Cervical Spine: normal cervical lordosis Thoracic/Lumbar Spine: thoracic and lumbar spine normal to inspection Skin General skin exam: no rashes or lesions noted Neuro General: patient oriented x3, gait normal, tone normal and moves all extremities Extrem General: Yes normal to inspection and Yes capillary refill normal Assessment & Plan Assessment & Plan (1) Benign prostatic hyperplasia with post-void dribbling: Code(s): N40.1 - Benign prostatic hyperplasia with lower urinary tract symptoms; N39.43 - Post-void dribbling Category: Medical (2) Hypogonadism in male: Comment: Testosterone gel Code(s): E29.1 - Testicular hypofunction Category: Medical Plan Six-month follow-up labs tele Orders: Orders Testosterone, Total 6 Months E29.1 - Testicular hypofunction Complete Blood Count no Diff 6 Months E29.1 - Testicular hypofunction Prostate Specific Antigen 6 Months E29.1 - Testicular hypofunction Medications: Refilled tamsulosin 0.8 mg (2 x 0.4 mg) PO BEDTIME 90 days 180 caps 1RF N39.43 - Post-void dribbling, N40.1 - Benign prostatic hyperplasia with lower urinary tract symptoms testosterone 2 pumps topically one pump to each shoulder daily; 28 days 75 grams 5RF E29.1 - Testicular hypofunction Patient Instructions: Imaging studies, laboratory and physical exam results were discussed and reviewed in detail. No major barriers to patient understanding were identified. An opportunity to ask questions regarding the treatment plan was provided. All questions were answered. The patient expressed understanding and agreement with the above treatment plan. The patient is aware they should contact our office by phone for worsening of their current condition or the appearance of new urologic symptoms. Compliance is encouraged with any medications and followup testing that is ordered. It is a privilege to participate in the urologic care of your patient. If you have any questions or concerns regarding treatment for the above conditions, or other urologic issues, please do not hesitate to contact me. The office telephone contact is [phone]. This note is constructed using voice recognition software. While every effort has been made to ensure accuracy paid search analyst errors may have been included. Yours sincerely, Dr Nliesh Bradshaw MD, [facility] - Urology Providers of Expert, Compassionate Care for the Genitourinary System Coding Level of Care Code Est Pt Level 3 (75059) Diagnoses Benign prostatic hyperplasia with post-void dribbling N40.1; N39.43 Hypogonadism in male E29.1
== END 2024-01-22 11:04 | disposition home or self-care (01) ==
LOC: HO.HUSH 10:17
PROVIDERS: PCP Internal Medicine; Visit Provider Urology
DX: N40.1 Benign prostatic hyperplasia with lower urinary tract symptoms (principal); N39.43 Post-void dribbling; E29.1 Testicular hypofunction
CPT/HCPCS: 99213

== ENCOUNTER → 2024-01-22 10:16 | Outpatient (BNVA) | payer MEDICARE, SELFPAY | PROVIDERS: PCP Internal Medicine; Visit Provider Urology | DX: N40.1 Benign prostatic hyperplasia with lower urinary tract symptoms (principal); N39.43 Post-void dribbling; E29.1 Testicular hypofunction | CPT/HCPCS: 99212 ==

== ENCOUNTER → 2024-02-03 08:51 | Outpatient (REF) | payer MEDICARE, SELFPAY ==
--- NOTE | 2024-02-03 08:53 | CA_ITS ---
Transthoracic Echocardiogram Patient (Last, First, Middle): Wesley Berg E Gender: Male Date of : 1945 Age: 78 Procedure Date: 02/03/2024 Procedure Type: Transthoracic Echocardiogram Location: OP Height: 170.18 cm Weight: 99.79 kg BSA: 2.11 m2 Heart Rate: bpm BP: 122 / 74 mmHg Rubber Cutter: MELISSA Referring MD: Jose De Jesus Vicente MD Shafting Cleaner: Jose De Jesus Vicente MD Symptoms: I50.30 - Unspecified diastolic (congestive) heart failure Study Quality: Adequate ECG Rhythm: Sinus Conclusions: - 1. Normal LV ejection fraction at 60-65% with pseudonormal filling pattern 2. Moderately dilated left atrium 3. Mild mitral regurgitation 4. Normal RV systolic pressure 5. Upper limits of normal ascending aortic size at 3.5 cm 6. No gross pericardial effusion Findings Left Ventricle Normal left ventricular size, thickness, and systolic function. The visually estimated ejection fraction is between 60-65%. Spectral Doppler is indicative of a pseudonormal filling pattern. E/E prime ratio is between 8 and 15 consistent with indeterminate filling pressures. Right Ventricle Normal right ventricular cavity size and systolic function. Atria The left atrium is moderately dilated. There is no evidence of interatrial shunt. The right atrium is likely dilated. Aortic Valve The aortic valve was not well visualized. There is no aortic valve stenosis. There is no aortic valve regurgitation. Mitral Valve There is mild anterior and posterior mitral leaflet thickening. There is mild mitral valve regurgitation. There is no mitral valve stenosis. Pulmonic Valve The pulmonic valve was not well visualized. Tricuspid Valve Likely normal tricuspid valve structure and function. There is mild tricuspid valve regurgitation. The right ventricular systolic pressure is normal. The right ventricular systolic pressure is 28 mmHg. Normal right atrial pressure. There is no evidence of pulmonary hypertension. Great Vessels The pulmonary artery was not well visualized. There is no dilatation of the ascending aorta measuring 3.50 cm. Small plaque is seen in the sino tubular ridge. Venous The inferior vena cava is normal in size and collapses greater than 50% with inspiration. Pericardium/Pleural There is no evidence of pericardial effusion. Prior Study Comparison No significant change compared to prior study dated: 07/13/2023. Measurements 2D Linear Measurements IVSd: 0.81 0.6-0.9/0.6-1.0 cm LVIDd: 4.93 3.9-5.3/4.2-5.9 cm LVIDd Index: 2.34 2.4-3.2/2.2-3.1 cm/m2 LVIDs: 3.41 2.0-3.6 cm LVPWd: 0.94 0.7-1.1 cm LA Diam: 4.40 2.7-3.8/3.0-4.0 cm LAIDs Index: 2.09 1.5-2.3 cm/m2 LV Mass: 185.94 67-162/88-224 g LV Mass Index: 88.12 43-95/49-115 g/m2 LVOT Diam: 1.90 3.0+(-)1.3 cm 2D Systolic Function EF 4C: 57.90 >55% EF 2C: 63.90 >55% EF BiP: 60.50 >55% Mitral Valve MV Pk E: 0.91 MV PK A: 0.41 MV Decel Time: 256.00 E/A: 2.20 E'Lateral: 8.49 E'Medial: 5.00 E/E' Med: 18.30 E/E' Lat: 10.80 PHT: 75.00 MVA PHT: 2.93 Decel Leake: 3.57 Aortic Valve AoV Pk Sonu: 1.38 AoV Mn Sonu: 0.88 AoV VTI: 0.35 AoV Pk Grad: 8.00 Aov Mn Grad: 4.00 KIMBERLY Cont.VTI: 1.78 LVOT LVOT Pk Sonu: 0.98 LVOT Mn Sonu: 0.59 LVOT VTI: 0.22 LVOT Pk Grad: 4.00 LVOT Mn Grad: 2.00 LVOT Diam: 1.90 LVOT Area: 2.84 Diastolic Function MV Pk E: 0.91 MV Pk A: 0.41 E/A: 2.20 E'Medial: 5.00 E/E' Med: 18.30 E' Laterial: 8.49 E/E' Lat: 10.80 Right Ventricle TAPSE (mm): 23.80 TVS' Sonu: 13.30 Tricuspid Valve TR Pk Sonu: 2.51 TR Pk Grad: 25.00 RA Press: 3.00 RVSP: 28.00 Great Vessels Aorta Sinus of Valsalva: 3.27 2.0-3.[address] Ridge: 2.62 1.7-3.4 cm Ao Asc: 3.50 2.1-3.4 cm Updated in Other Vendor System with Status of Final Jose De Jesus Vicente MD electronically signed on 02/03/2024 11:55:15 AM with status of Final
== END ==
LOC: HO.CARD 08:51
PROVIDERS: PCP Internal Medicine; Visit Provider Internal Medicine Cardiovascular Disease
DX: I50.30 Unspecified diastolic (congestive) heart failure (principal)
CPT/HCPCS: 93306

== ENCOUNTER → 2024-02-03 08:53 | Outpatient (BNV) | payer MEDICARE, SELFPAY | PROVIDERS: PCP Internal Medicine; Visit Provider Internal Medicine Cardiovascular Disease | DX: I50.30 Unspecified diastolic (congestive) heart failure (principal); I34.0 Nonrheumatic mitral (valve) insufficiency; I36.1 Nonrheumatic tricuspid (valve) insufficiency | CPT/HCPCS: 93306 ==

== ENCOUNTER 2024-02-08 09:48 | Outpatient (AMB) | payer MEDICARE, SELFPAY ==
--- NOTE | 2024-02-08 09:58 | MHC.OFFVISCO ---
Intake Intake Visit Reasons: Anticoagulation Allergies fentanyl [FENTANYL] Allergy (Severe, Verified 02/08/24 09:54) ANAPHYLAXIS protamine [PROTAMINE] Allergy (Severe, Verified 02/08/24 09:54) ANAPHYLAXIS rocuronium [ROCURONIUM] Allergy (Severe, Verified 02/08/24 09:54) ANAPHYLAXIS sevoflurane [SEVOFLURANE] Allergy (Severe, Verified 02/08/24 09:54) ANAPHYLAXIS Medication List - Last Reconciled 02/08/24 by Courtney Dunn RN amiodarone 100 mg PO DAILY atorvastatin 80 mg PO DAILY fluorouracil 5% 1 appl topical BID furosemide 40 mg PO DAILY gabapentin 200 mg PO BEDTIME gemfibrozil 600 mg PO BID losartan 50 mg PO DAILY metoprolol succinate ER 100 mg PO DAILY moxifloxacin 0.5% drps ophthalmic (eye) pantoprazole 40 mg PO DAILY potassium chloride ER 10 mEq PO DAILY 90 days tamsulosin 0.8 mg (2 x 0.4 mg) PO BEDTIME 90 days testosterone 2 pumps topically one pump to each shoulder daily; 28 days warfarin 5 mg See Protocol PO DAILY zolpidem 10 mg PO BEDTIME PRN Nursing Note INR: 3.0- in therapeutic range 2-3 Medications and supplements reviewed No changes in health, diet, medications, or supplements, Denies any signs and symptoms of bleeding or bruising or clotting. Bleeding, bruising, clotting discussed Nutritional guidance given Dose: 5mg x 3, 2.5mg x 4 F/U INR: 4 weeks Patient verbalizes understanding of instructions given Coding Level of Care Code Est Patient Level 1 Diagnoses Current use of anticoagulant therapy Z79.01 Results AMB INR Fingerstick AMB INR Fingerstick 3.0 Last Edit by Courtney Dunn RN on 02/08/24 09:59 interface delay Assessment & Plan Assessment & Plan (1) Current use of anticoagulant therapy: Code(s): Z79.01 - long-term (current) use of anticoagulants Category: Medical
[2024-02-08 09:59] LABS: Prothrombin Time Whole Bld POC 36.6 sec (11.1-13.5)
== END 2024-02-08 10:08 | disposition home or self-care (01) ==
LOC: HO.ACS 09:48
PROVIDERS: PCP Internal Medicine; Visit Provider Internal Medicine
DX: Z79.01 Long term (current) use of anticoagulants (principal)

== ENCOUNTER → 2024-02-08 09:48 | Outpatient (BNVA) | payer MEDICARE, SELFPAY | PROVIDERS: PCP Internal Medicine; Visit Provider Internal Medicine | DX: I48.20 Chronic atrial fibrillation, unspecified (principal); Z79.01 Long term (current) use of anticoagulants; Z51.81 Encounter for therapeutic drug level monitoring | CPT/HCPCS: 85610; 99211 ==

== ENCOUNTER 2024-03-07 09:44 | Outpatient (AMB) | payer MEDICARE, SELFPAY ==
--- NOTE | 2024-03-07 10:03 | MHC.OFFVISCO ---
Intake Intake Visit Reasons: Anticoagulation Allergies fentanyl [FENTANYL] Allergy (Severe, Verified 03/07/24 09:50) ANAPHYLAXIS protamine [PROTAMINE] Allergy (Severe, Verified 03/07/24 09:50) ANAPHYLAXIS rocuronium [ROCURONIUM] Allergy (Severe, Verified 03/07/24 09:50) ANAPHYLAXIS sevoflurane [SEVOFLURANE] Allergy (Severe, Verified 03/07/24 09:50) ANAPHYLAXIS Medication List - Last Reconciled 03/07/24 by Jane Stafford RN amiodarone 100 mg PO DAILY atorvastatin 80 mg PO DAILY fluorouracil 5% 1 appl topical BID furosemide 40 mg PO DAILY gabapentin 200 mg PO BEDTIME gemfibrozil 600 mg PO BID losartan 50 mg PO DAILY metoprolol succinate ER 100 mg PO DAILY moxifloxacin 0.5% drps ophthalmic (eye) pantoprazole 40 mg PO DAILY potassium chloride ER 10 mEq PO DAILY 90 days tamsulosin 0.8 mg (2 x 0.4 mg) PO BEDTIME 90 days testosterone 2 pumps topically one pump to each shoulder daily; 28 days warfarin 5 mg See Protocol PO DAILY zolpidem 10 mg PO BEDTIME PRN Nursing Note INR: 2.9 in therapeutic range of 2-3 Medications and supplements reviewed Pt has swelling under left eye and cheekbone. States he was cutting brush outside yesterday and got hit with a branch. It didn't swell until this morning after lying down in bed overnight. He put ice on it. He denies pain and no ecchymosis. States he has a call out to his doctor. No changes in diet, medications, or supplements, Denies any signs and symptoms of bleeding or bruising or clotting. 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
[2024-03-07 10:04] LABS: Prothrombin Time Whole Bld POC 34.6 sec (11.1-13.5); ~PT, ~INR - Anti Coag Clinic 2.9 (0.9-1.1)
== END 2024-03-07 10:13 | disposition home or self-care (01) ==
LOC: HO.ACS 09:44
PROVIDERS: PCP Internal Medicine; Visit Provider Internal Medicine
DX: Z79.01 Long term (current) use of anticoagulants (principal)

== ENCOUNTER → 2024-03-07 09:44 | Outpatient (BNVA) | payer MEDICARE, SELFPAY | PROVIDERS: PCP Internal Medicine; Visit Provider Internal Medicine | DX: I48.20 Chronic atrial fibrillation, unspecified (principal); Z79.01 Long term (current) use of anticoagulants; Z51.81 Encounter for therapeutic drug level monitoring | CPT/HCPCS: 85610; 99211 ==

== ENCOUNTER 2024-03-14 12:43 | Outpatient (REF) | payer MEDICARE, SELFPAY ==
[2024-03-14 13:03] LABS: MANUAL DIFF FLAG NO
[2024-03-14 13:19] LABS: Basophils Percent Auto 0.4 % (0-2); Eosinophils Absolute Auto 0.3 X10*3/uL (0.0-0.4); Eosinophils Percent Auto 2.9 % (0-4); Hematocrit 45.2 % (42.0-52.0); Hemoglobin 15.2 g/dl (14.0-18.0); Imm Gran Abs Auto 0.04 X10*3/uL (0.00-0.03); Imm Gran Pct Auto 0.4 % (0.0-0.4); Lymphocytes Absolute Auto 3.1 X10*3/uL (1.2-4.9); Lymphocytes Percent Auto 33.7 % (20-40); Mean Corpuscular HGB Conc 33.6 g/dl (31.0-36.0); Mean Corpuscular Hemoglobin 31.4 pg (27.0-33.0); Mean Corpuscular Volume 93.4 fL (80.0-98.0); Mean Platelet Volume 10.2 fL (9.4-12.4); Monocytes Absolute Auto 0.6 X10*3/uL (0.1-1.2); Monocytes Percent Auto 6.1 % (2-11); Neutrophils Absolute Auto 5.2 x10*3/uL (2.0-8.3); Neutrophils Percent Auto 56.5 % (45-73); Platelet Count 177 X10*3/uL (160-400); Red Blood Count 4.84 X10*6/uL (4.60-5.80); White Blood Count 9.2 X10*3/uL (4.8-10.8)
[2024-03-14 13:50] LABS: Estimated Average Glucose 123 mg/dL; Hemoglobin A1C 160.7426 umol/L; Hemoglobin A1c % 5.9 % (<6.0); Total Hemoglobin (HGBA1C) 3885.5905 umol/L
[2024-03-14 13:51] LABS: Appearance Urine Clear; Color Urine Dark Yellow; Glucose Urine UA Negative (Negative); Leukocyte Esterase Urine Negative (Negative); Nitrite Urine Negative (Negative); Specific Gravity - Urine >= 1.030 (1.005-1.025); Urine Blood Negative (Negative); Urine Ketones Trace mg/dL (Negative); Urine Protein Negative (Neg-Trace)
[2024-03-14 14:13] LABS: Prostate Specific Antigen Scr 1.44 ng/mL (<0.05-4.0)
[2024-03-14 14:15] LABS: Alanine Aminotransferase 35 U/L (0-40); Albumin Level 3.9 g/dL (3.5-5.0); Alkaline Phosphatase 37 U/L (39-117); Anion Gap 10 (12-20); Aspartate Amino Transferase 43 U/L (5-37); Blood Urea Nitrogen 12 mg/dL (9-16); Calcium 9.1 mg/dL (8.4-10.2); Carbon Dioxide 28 mmol/L (22-29); Chloride 107 mmol/L (96-108); Cholesterol 112 mg/dL (<200); Estimated Glomerular Filt Rate > 60; Glucose Random 118 mg/dL (60-115); HDL Cholesterol 34 mg/dL (>40); LDL Cholesterol Calculated 46 mg/dL (<100); Potassium 4.5 mmol/L (3.3-5.1); Sodium 140 mmol/L (135-145); Total Protein 6.8 g/dL (6.5-8.0); Triglycerides 162 mg/dL (<150)
[2024-03-14 14:29] LABS: Creatinine Urine 191.19 mg/dL; Microalbum/Creatinine Ratio Ur 8.3 ug/mg cr (<30)
[2024-03-20 15:48] LABS: Testosterone, Free 564.3 pg/mL (30.0-135.0); Testosterone, Total 1946 ng/dL (250-1100)
== END 2024-03-14 12:44 | disposition home or self-care (01) ==
LOC: HO.LAB 12:43
PROVIDERS: PCP Internal Medicine; Visit Provider Internal Medicine
DX: E78.5 Hyperlipidemia, unspecified (principal); Z12.5 Encounter for screening for malignant neoplasm of prostate; I10 Essential (primary) hypertension; N40.0 Benign prostatic hyperplasia without lower urinary tract symptoms; Z79.01 Long term (current) use of anticoagulants; Z13.1 Encounter for screening for diabetes mellitus
CPT/HCPCS: 36415; 80053; 80061; 81003; 82043; 82570; 83036; 84153; 84402; 84403; 85025; 85610; 99211

== ENCOUNTER 2024-03-14 13:05 | Outpatient (AMB) | payer MEDICARE, SELFPAY ==
--- NOTE | 2024-03-14 13:16 | MHC.OFFVISCO ---
Intake Intake Visit Reasons: Anticoagulation Allergies fentanyl [FENTANYL] Allergy (Severe, Verified 03/14/24 13:11) ANAPHYLAXIS protamine [PROTAMINE] Allergy (Severe, Verified 03/14/24 13:11) ANAPHYLAXIS rocuronium [ROCURONIUM] Allergy (Severe, Verified 03/14/24 13:11) ANAPHYLAXIS sevoflurane [SEVOFLURANE] Allergy (Severe, Verified 03/14/24 13:11) ANAPHYLAXIS Medication List - Last Reconciled 03/14/24 by Courtney Dunn RN amiodarone 100 mg PO DAILY atorvastatin 80 mg PO DAILY doxycycline hyclate 100 mg PO BID fluorouracil 5% 1 appl topical BID furosemide 40 mg PO DAILY gabapentin 200 mg PO BEDTIME gemfibrozil 600 mg PO BID losartan 50 mg PO DAILY metoprolol succinate ER 100 mg PO DAILY moxifloxacin 0.5% drps ophthalmic (eye) pantoprazole 40 mg PO DAILY potassium chloride ER 10 mEq PO DAILY 90 days tamsulosin 0.8 mg (2 x 0.4 mg) PO BEDTIME 90 days testosterone 2 pumps topically one pump to each shoulder daily; 28 days warfarin 5 mg See Protocol PO DAILY zolpidem 10 mg PO BEDTIME PRN Nursing Note INR: 2.4- in therapeutic range of 2-3 Medications and supplements reviewed- cont on doxy for 2 more days. eye redness less but still minor edema No changes in health, diet, medications, or supplements, Denies any signs and symptoms of bleeding or bruising or clotting. Bleeding, bruising, clotting discussed Nutritional guidance given - eat greens while on antibiotics Dose: 5mg x 3, 2.5mg x 4 F/U INR: pt ref earlier than 2 weeks Patient verbalizes understanding of instructions given Coding Level of Care Code Est Patient Level 1 Diagnoses Current use of anticoagulant therapy Z79.01 Results AMB INR Fingerstick AMB INR Fingerstick 2.4 Last Edit by Courtney Dunn RN on 03/14/24 13:18 delay interface Assessment & Plan Assessment & Plan (1) Current use of anticoagulant therapy: Code(s): Z79.01 - retirement (current) use of anticoagulants Category: Medical
[2024-03-14 13:19] LABS: Prothrombin Time Whole Bld POC 28.3 sec (11.1-13.5); ~PT, ~INR - Anti Coag Clinic 2.4 (0.9-1.1)
== END 2024-03-14 13:22 | disposition home or self-care (01) ==
LOC: HO.ACS 13:05
PROVIDERS: PCP Internal Medicine; Visit Provider Internal Medicine
DX: Z79.01 Long term (current) use of anticoagulants (principal)

== ENCOUNTER 2024-03-28 10:20 | Outpatient (AMB) | payer MEDICARE, SELFPAY ==
[2024-03-28 10:34] LABS: Prothrombin Time Whole Bld POC 27.6 sec (11.1-13.5); ~PT, ~INR - Anti Coag Clinic 2.3 (0.9-1.1)
--- NOTE | 2024-03-28 10:44 | MHC.OFFVISCO ---
Intake Intake Visit Reasons: Anticoagulation Allergies fentanyl [FENTANYL] Allergy (Severe, Verified 03/28/24 10:26) ANAPHYLAXIS protamine [PROTAMINE] Allergy (Severe, Verified 03/28/24 10:26) ANAPHYLAXIS rocuronium [ROCURONIUM] Allergy (Severe, Verified 03/28/24 10:26) ANAPHYLAXIS sevoflurane [SEVOFLURANE] Allergy (Severe, Verified 03/28/24 10:26) ANAPHYLAXIS Medication List - Last Reconciled 03/28/24 by Jeannie Leger RN amiodarone 100 mg PO DAILY atorvastatin 80 mg PO DAILY doxycycline hyclate 100 mg PO BID fluorouracil 5% 1 appl topical BID furosemide 40 mg PO DAILY gabapentin 200 mg PO BEDTIME gemfibrozil 600 mg PO BID losartan 50 mg PO DAILY metoprolol succinate ER 100 mg PO DAILY moxifloxacin 0.5% drps ophthalmic (eye) pantoprazole 40 mg PO DAILY potassium chloride ER 10 mEq PO DAILY 90 days tamsulosin 0.8 mg (2 x 0.4 mg) PO BEDTIME 90 days testosterone 2 pumps topically one pump to each shoulder daily; 28 days warfarin 5 mg See Protocol PO DAILY zolpidem 10 mg PO BEDTIME PRN Nursing Note INR: 2.3 in therapeutic range Medications and supplements reviewed He continues on the doxycycline for 30 days he stated for skin infection on face- he has been eating more greens to off set antbx Denies any signs and symptoms of bleeding or bruising or clotting. Bleeding, bruising, clotting discussed Nutritional guidance given - cont to eat a mix of fruits and vegetables and keep up weekly greens Dose: keep same for now 5mg x 3 days/ 2.5mg x 4 days F/U INR: 3 weeks Patient verbalizes understanding of instructions given to call with any unusual bruising or bleeding. pt aware antbx can raise the INR Coding Level of Care Code Est Patient Level 1 Diagnoses Current use of anticoagulant therapy Z79.01 Assessment & Plan Assessment & Plan (1) Current use of anticoagulant therapy: Code(s): Z79.01 - jail (current) use of anticoagulants Category: Medical
== END 2024-03-28 10:48 | disposition home or self-care (01) ==
LOC: HO.ACS 10:20
PROVIDERS: PCP Internal Medicine; Visit Provider Internal Medicine
DX: Z79.01 Long term (current) use of anticoagulants (principal)

== ENCOUNTER → 2024-03-28 10:20 | Outpatient (BNVA) | payer MEDICARE, SELFPAY | PROVIDERS: PCP Internal Medicine; Visit Provider Internal Medicine | DX: I48.20 Chronic atrial fibrillation, unspecified (principal); Z79.01 Long term (current) use of anticoagulants; Z51.81 Encounter for therapeutic drug level monitoring | CPT/HCPCS: 85610; 99211 ==

== ENCOUNTER 2024-04-22 09:49 | Outpatient (AMB) | payer MEDICARE, SELFPAY ==
[2024-04-22 10:04] LABS: Prothrombin Time Whole Bld POC 30.7 sec (11.1-13.5); ~PT, ~INR - Anti Coag Clinic 2.6 (0.9-1.1)
--- NOTE | 2024-04-22 10:08 | MHC.OFFVISCO ---
Intake Intake Visit Reasons: Anticoagulation Allergies fentanyl [FENTANYL] Allergy (Severe, Verified 04/22/24 09:56) ANAPHYLAXIS protamine [PROTAMINE] Allergy (Severe, Verified 04/22/24 09:56) ANAPHYLAXIS rocuronium [ROCURONIUM] Allergy (Severe, Verified 04/22/24 09:56) ANAPHYLAXIS sevoflurane [SEVOFLURANE] Allergy (Severe, Verified 04/22/24 09:56) ANAPHYLAXIS Medication List - Last Reconciled 04/22/24 by Jane Stafford, RN amiodarone 100 mg PO DAILY atorvastatin 80 mg PO DAILY doxycycline hyclate 100 mg PO BID fluorouracil 5% 1 appl topical BID furosemide 40 mg PO DAILY gabapentin 200 mg PO BEDTIME gemfibrozil 600 mg PO BID losartan 50 mg PO DAILY metoprolol succinate ER 100 mg PO DAILY moxifloxacin 0.5% drps ophthalmic (eye) pantoprazole 40 mg PO DAILY potassium chloride ER 10 mEq PO DAILY 90 days tamsulosin 0.8 mg (2 x 0.4 mg) PO BEDTIME 90 days testosterone 2 pumps topically one pump to each shoulder daily; 28 days warfarin 5 mg See Protocol PO DAILY zolpidem 10 mg PO BEDTIME PRN Nursing Note INR: 2.6 in therapeutic range of 2-3 Medications and supplements reviewed No changes in health, diet, medications, or supplements, Denies any signs and symptoms of bleeding or bruising or clotting. 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
== END 2024-04-22 10:10 | disposition home or self-care (01) ==
LOC: HO.ACS 09:49
PROVIDERS: PCP Internal Medicine; Visit Provider Internal Medicine
DX: Z79.01 Long term (current) use of anticoagulants (principal)

== ENCOUNTER 2024-05-20 09:27 | Outpatient (AMB) | payer MEDICARE, SELFPAY ==
[2024-05-20 09:33] LABS: ~PT, ~INR - Anti Coag Clinic 2.4 (0.9-1.1)
--- NOTE | 2024-05-20 09:37 | MHC.OFFVISCO ---
Intake Intake Visit Reasons: Anticoagulation Allergies fentanyl [FENTANYL] Allergy (Severe, Verified 05/20/24 09:28) ANAPHYLAXIS protamine [PROTAMINE] Allergy (Severe, Verified 05/20/24 09:28) ANAPHYLAXIS rocuronium [ROCURONIUM] Allergy (Severe, Verified 05/20/24 09:28) ANAPHYLAXIS sevoflurane [SEVOFLURANE] Allergy (Severe, Verified 05/20/24 09:28) ANAPHYLAXIS Medication List - Last Reconciled 05/20/24 by Jane Stafford, RN amiodarone 100 mg PO DAILY atorvastatin 80 mg PO DAILY doxycycline hyclate 100 mg PO BID fluorouracil 5% 1 appl topical BID furosemide 40 mg PO DAILY gabapentin 200 mg PO BEDTIME gemfibrozil 600 mg PO BID losartan 50 mg PO DAILY metoprolol succinate ER 100 mg PO DAILY moxifloxacin 0.5% drps ophthalmic (eye) pantoprazole 40 mg PO DAILY potassium chloride ER 10 mEq PO DAILY 90 days tamsulosin 0.8 mg (2 x 0.4 mg) PO BEDTIME 90 days testosterone 2 pumps topically one pump to each shoulder daily; 28 days warfarin 5 mg See Protocol PO DAILY zolpidem 10 mg PO BEDTIME PRN Nursing Note INR: 2.4 in therapeutic range 2-3 Medications and supplements reviewed No changes in health, diet, medications, or supplements, Denies any signs and symptoms of bleeding or bruising or clotting. 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
== END 2024-05-20 09:38 | disposition home or self-care (01) ==
LOC: HO.ACS 09:27
PROVIDERS: PCP Internal Medicine; Visit Provider Internal Medicine
DX: Z79.01 Long term (current) use of anticoagulants (principal)

== ENCOUNTER → 2024-05-20 09:27 | Outpatient (BNVA) | payer MEDICARE, SELFPAY | PROVIDERS: PCP Internal Medicine; Visit Provider Internal Medicine | DX: I48.20 Chronic atrial fibrillation, unspecified (principal); Z79.01 Long term (current) use of anticoagulants; Z51.81 Encounter for therapeutic drug level monitoring | CPT/HCPCS: 85610; 99211 ==

== ENCOUNTER 2024-06-17 09:46 | Outpatient (AMB) | payer MEDICARE, SELFPAY ==
[2024-06-17 10:05] LABS: Prothrombin Time Whole Bld POC 30.1 sec (11.1-13.5); ~PT, ~INR - Anti Coag Clinic 2.5 (0.9-1.1)
--- NOTE | 2024-06-17 10:07 | MHC.OFFVISCO ---
Intake Intake Visit Reasons: Anticoagulation Allergies fentanyl [FENTANYL] Allergy (Severe, Verified 06/17/24 09:53) ANAPHYLAXIS protamine [PROTAMINE] Allergy (Severe, Verified 06/17/24 09:53) ANAPHYLAXIS rocuronium [ROCURONIUM] Allergy (Severe, Verified 06/17/24 09:53) ANAPHYLAXIS sevoflurane [SEVOFLURANE] Allergy (Severe, Verified 06/17/24 09:53) ANAPHYLAXIS Medication List - Last Reconciled 06/17/24 by Jeannie Leger RN amiodarone 100 mg PO DAILY atorvastatin 80 mg PO DAILY furosemide 40 mg PO DAILY gabapentin 200 mg (2 x 100 mg) PO BEDTIME gemfibrozil 600 mg PO BID losartan 50 mg PO DAILY metoprolol succinate ER 100 mg PO DAILY moxifloxacin 0.5% drps ophthalmic (eye) pantoprazole 40 mg PO DAILY potassium chloride ER 10 mEq PO DAILY 90 days tamsulosin 0.8 mg (2 x 0.4 mg) PO BEDTIME 90 days testosterone 2 pumps topically one pump to each shoulder daily; 28 days warfarin 5 mg See Protocol PO DAILY zolpidem 10 mg PO BEDTIME PRN Nursing Note INR: 2.5 in therapeutic range Medications and supplements reviewed No changes in health, diet, medications, or supplements, Denies any signs and symptoms of bleeding or bruising or clotting. Bleeding, bruising, clotting discussed Nutritional guidance given Dose: 5MG X 3 DAYS/ 2.5MG X 4 DAYS F/U INR: 1 MONTH Patient verbalizes understanding of instructions given with read back Questionnaires HAS-BLED Does the patient had uncontrolled Hypertension?: Yes Does the patient have renal disease?: No Does the patient have liver disease?: No Does the patient have a history of stroke?: No Has the patient had major bleeding or predisposition to bleeding?: No Does the patient have labile INRs?: No Is the patient over 65 years of age?: Yes Is the patient on medications that gives them a predisposition to bleeding?: Yes Does the patient use alcohol?: No HAS-BLED Score: 3 CHADSVASC Age: 75 or over Gender: Male Does the patient have a history of CHF?: Yes Does the patient have a history of Hypertension?: Yes Does the patient have a history of Stroke/TIA/Thromboembolism?: No Does the patient have a history of Vascular Disease (prior UT, PAD or aortic plaque)?: Yes (on cholesterol meds) Does the patient have a history of Diabetes?: No CHADS VACS Score: 5 Zeeshan Prediction Score Rsk VTE Active Cancer: No Previous VTE, excluding superficial vein thrombosis: No Reduced mobility: No Already known Thrombophilic Condition: No With-in last month Trauma and/or Surgery: No Elderly 70 year or older: Yes Heart and/or Respiratory Failure: Yes Acute Myocardial infarction and/or Ischemic Stroke: No Acute Infection and/or Rheumatologic Disorder: No Obesity (BMI 30 or greater): Yes Ongoing Hormonal Treatment: No Score: 3 Zeeshan Score less than 4; Low Risk of VTE Zeeshan Score 4 or greater; High Risk of VTE Coding Level of Care Code Est Patient Level 1 Diagnoses Current use of anticoagulant therapy Z79.01 Assessment & Plan Assessment & Plan (1) Current use of anticoagulant therapy: Code(s): Z79.01 - detention (current) use of anticoagulants Category: Medical
== END 2024-06-17 10:13 | disposition home or self-care (01) ==
LOC: HO.ACS 09:46
PROVIDERS: PCP Internal Medicine; Visit Provider Internal Medicine Medical Oncology
DX: Z79.01 Long term (current) use of anticoagulants (principal)

== ENCOUNTER → 2024-06-17 09:46 | Outpatient (BNVA) | payer MEDICARE, SELFPAY | PROVIDERS: PCP Internal Medicine; Visit Provider Internal Medicine Medical Oncology | DX: I48.20 Chronic atrial fibrillation, unspecified (principal); Z79.01 Long term (current) use of anticoagulants; Z51.81 Encounter for therapeutic drug level monitoring | CPT/HCPCS: 85610; 99211 ==

== ENCOUNTER 2024-07-15 09:51 | Outpatient (AMB) | payer MEDICARE, SELFPAY ==
--- NOTE | 2024-07-15 09:59 | MHC.OFFVISCO ---
Intake Intake Visit Reasons: Anticoagulation Allergies fentanyl [FENTANYL] Allergy (Severe, Verified 07/15/24 09:53) ANAPHYLAXIS protamine [PROTAMINE] Allergy (Severe, Verified 07/15/24 09:53) ANAPHYLAXIS rocuronium [ROCURONIUM] Allergy (Severe, Verified 07/15/24 09:53) ANAPHYLAXIS sevoflurane [SEVOFLURANE] Allergy (Severe, Verified 07/15/24 09:53) ANAPHYLAXIS Medication List - Last Reconciled 07/15/24 by Courtney Dunn RN amiodarone 100 mg PO DAILY atorvastatin 80 mg PO DAILY furosemide 40 mg PO DAILY gabapentin 200 mg (2 x 100 mg) PO BEDTIME gabapentin 100 mg PO DAILY gemfibrozil 600 mg PO BID losartan 50 mg PO DAILY losartan 50 mg PO DAILY metoprolol succinate ER 100 mg PO DAILY moxifloxacin 0.5% drps ophthalmic (eye) pantoprazole 40 mg PO DAILY pantoprazole 40 mg PO DAILY potassium chloride ER 10 mEq PO DAILY 90 days tamsulosin 0.8 mg (2 x 0.4 mg) PO BEDTIME 90 days testosterone 2 pumps topically one pump to each shoulder daily; 28 days warfarin 5 mg See Protocol PO DAILY zolpidem 10 mg PO BEDTIME PRN Nursing Note INR: 2.4- in therapeutic range of 2-3 Medications and supplements reviewed- no changes No changes in health, diet, medications, or supplements, Denies any signs and symptoms of bleeding or bruising or clotting. 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
[2024-07-15 10:01] LABS: Prothrombin Time Whole Bld POC 29.1 sec (11.1-13.5); ~PT, ~INR - Anti Coag Clinic 2.4 (0.9-1.1)
== END 2024-07-15 10:06 | disposition home or self-care (01) ==
PROVIDERS: PCP Internal Medicine; Visit Provider Internal Medicine Medical Oncology
DX: Z79.01 Long term (current) use of anticoagulants (principal)

== ENCOUNTER → 2024-07-15 09:51 | Outpatient (BNVA) | payer MEDICARE, SELFPAY | PROVIDERS: PCP Internal Medicine; Visit Provider Internal Medicine Medical Oncology | DX: I48.20 Chronic atrial fibrillation, unspecified (principal); Z79.01 Long term (current) use of anticoagulants; Z51.81 Encounter for therapeutic drug level monitoring | CPT/HCPCS: 85610; 99211 ==

== ENCOUNTER 2024-07-20 09:45 | Outpatient (AMB) | payer MEDICARE, SELFPAY ==
[2024-07-20 09:53] VITALS: BP 130/80; PULSE 58; TEMP 36.4; O2SAT 96; BMI 33.9
--- NOTE | 2024-07-20 09:53 | MHC.PC.OV ---
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 Required: No Accompanied by: Self / Same As Patient Allergies fentanyl [FENTANYL] Allergy (Severe, Verified 07/20/24 09:53) ANAPHYLAXIS protamine [PROTAMINE] Allergy (Severe, Verified 07/20/24 09:53) ANAPHYLAXIS rocuronium [ROCURONIUM] Allergy (Severe, Verified 07/20/24 09:53) ANAPHYLAXIS sevoflurane [SEVOFLURANE] Allergy (Severe, Verified 07/20/24 09:53) ANAPHYLAXIS Tobacco use date assessed: 07/20/24 Fall risk assessment: No Falls in past year Last assessed Fall Risk: 07/20/24 Dental Screening Dental Screen Date: 07/20/24 Did you have a dental visit in the last 12 months?: Yes Did you have a dental problem in the last 6 months where you did not have access to dental care?: No HPI HPI Comments History of Present Illness Details History of Present Illness The patient is an 78-year-old male presenting with a routine follow-up. He has been on amiodarone for atrial fibrillation since a cardioversion about 10 years ago, with successful results, reporting no symptoms like palpitations or dyspnea. No symptoms of BANERJEE, orthopnea, or edema. No chest pain. He is unsure of his antihypertensive regimen, but reviewed medication list with pharmacy for accuracy. He is scheduled for a TURP procedure to address urinary difficulties. Chronic insomnia has been managed with zolpidem for many years, which the patient confirms is effective without daytime somnolence. Peripheral neuropathy reasonably controlled on gabapentin, with intermittent numbness and tingling noted primarily at night. Screenings such as colonoscopy are up-to-date with the last occurrence in 2018. Review of Systems - Cardiovascular: Denies palpitations, shortness of breath, or leg swelling. No chest pain - Respiratory: Denies shortness of breath on exertion. - Gastrointestinal: Denies rectal bleeding. - Genitourinary: Reports frequent urination; pending TURP. - Neurological: Reports tingling and numbness in both feet at night, denies severe pain or mobility issues. - Sleep: Reports taking zolpidem every night. Vital Signs - Blood pressure: Noted to be perfect in conversation Health Maintenance - Colonoscopy last completed in 2018 - Discussed MOLST form and healthcare proxy - Reviewed medication and dosing accuracy, especially for hypertension management Physical Exam Constitutional: Awake and alert, no apparent distress Heart: RRR, S1S2, no murmurs, no edema Lungs: CTA bilaterally, no wheezing Extremities: No calf tenderness Skin: Warm and dry Neuro: Alert and oriented x 3 Assessment and Plan 1. Atrial Fibrillation Continued management with amiodarone is effective, with no symptomatic recurrence noted. Rate is appropriate controlled, continue Toprol 100 mg daily. Continue Coumadin for anticoagulation, INR therapeutic at 2.4. 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 2. Heart Failure Without symptoms of exacerbation, maintain current management, and close monitoring. Continue Lasix 40 mg daily. Contact office for any weight gain greater than 3 lb in 1 day or greater than 5 lb in 3 days. Follow-up with cardiology as scheduled 3. Essential Hypertension Continue losartan 50 mg daily, Toprol 100 mg daily 4. Benign Prostatic Hyperplasia Proceeding with planned TURP to alleviate urinary retention issues. Continue tamsulosin 5. Peripheral Polyneuropathy Continue gabapentin 200 mg at bedtime 6. Chronic Insomnia Zolpidem can be continued, but awareness of long-term use emphasized. 8. Preventive Care Ensure completion of proxy and MOLST documents. [facility] Medical History (Updated 07/20/24 @ 10:11 by TESSA Vu) Prediabetes (HFpEF) heart failure with preserved ejection fraction Paroxysmal atrial fibrillation HTN (hypertension) History of cardioversion Benign prostatic hyperplasia with post-void dribbling Hypogonadism in male Surgical History History of penile implant History of cardiac radiofrequency ablation (RFA) Hx of endoscopy Hx of colonoscopy (~09/30/17) Family History (Updated 07/20/24 @ 10:23 by Cynthia Degroot MA) Father No problems noted. Mother CVD (cardiovascular disease) Heart murmur Social History Housing: House Patient Tobacco Use Status: Never used Tobacco e-Cigarette/Vaping Use: Never Used service: No Current occupational status: retired Current occupation: Rt handed Cognitive needs: No Hearing needs: No Vision needs: No Questionnaire PHQ-9 Over the last 2 weeks, how often have you been bothered by any of the following problems? 1. Little interest or pleasure in doing things: not at all 2. Feeling down, depressed, or hopeless: not at all 3. Trouble falling or staying asleep, or sleeping too much: not at all 4. Feeling tired or having little energy: not at all 5. Poor appetite or overeating: not at all 6. Feeling bad about yourself - or that you are a failure or have let yourself or your family down: not at all 7. Trouble concentrating on things, such as reading the newspaper or watching television: not at all 8. Moving or speaking so slowly that other people could have noticed. Or the opposite - being so fidgety or restless that you have been moving around a lot more than usual: not at all 9. Thoughts that you would be better off or of hurting yourself in some way: not at all Total score: 0 Source: Developed by Drs. Sotero Henderson, Aria Givens, Jamar Wheatley and colleagues, with an educational miesha from [employer]. Thrive Questionnaire Date Thrive assessed: 07/20/24 I am a: Patient Within the past 12 months, did the food you bought not last and you didn't have the money to get more?: Never true Within the past 12 months, did you worry whether your food would run out before you got money to buy more?: Never true Do you have trouble paying for medicines?: No Do you have trouble getting transportation to medical appointments?: No Do you have trouble paying your heating and electricity bill?: No Do you have trouble taking care of your child, family member or friend?: No Do you have trouble with day-to-day activities such as bathing, preparing meals, shopping, managing finances, etc.?: No Are you currently unemployed and looking for a job?: No Are you interested in more education?: No THRIVE Score: 0 AUDIT C Alcohol Use Questionnaire (AUDIT-C) 1. How often do you have a drink containing alcohol?: Never 3. How often do you have six or more drinks on one occasion?: Never Total Score: 0 RICHA-7 AMB Questionnaire RICHA-7 Date RICHA - 7 assessed: 07/20/24 Feeling nervous, anxious, or on edge: 0 = Not at all Not being able to stop or control worryin = Not at all Worrying too much about different things: 0 = Not at all Trouble relaxin = Not at all Being so restless that it is hard to sit still: 0 = Not at all Becoming easily annoyed or irritable: 0 = Not at all Feeling afraid as if something awful might happen: 0 = Not at all Total RICHA-7 score (0-4 normal; 5-9 mild; 10-14 moderate; 15-21 severe): 0 Source: Developed by Drs. Sotero Henderson, Aria Givens, Jamar Wheatley and colleagues, with an educational miesha from [employer]. Physical exam (Primary Care) Vital Signs: Last Vital Signs Temp 97.6 F 07/20/24 09:53 Pulse 58 07/20/24 09:53 BP 130/80 07/20/24 09:53 Pulse Ox 96 07/20/24 09:53 Oxygen Delivery Method Room Air 07/20/24 09:53 BMI result Body Mass Index 33.9 Tobacco/Smoking Status: Tobacco use Status Tobacco use date assessed 07/20/24 07/20/24 09:55 Patient Tobacco Use Status Never used Tobacco 07/20/24 09:55 e-Cigarette/Vaping Use Never Used 07/20/24 09:55 PHQ-9: PHQ-9 Score PHQ-9: Total score 0 07/20/24 10:30 Thrive Assessment: Date of Thrive Assessment Date Thrive assessed 07/20/24 07/20/24 09:55 Coding Level of Care Code New Pt Level 4 (38744) Complex EM visit Add On G2211 Diagnoses (HFpEF) heart failure with preserved ejection fraction I50.30 Paroxysmal atrial fibrillation I48.0 HTN (hypertension) I10 Benign prostatic hyperplasia with post-void dribbling N40.1; N39.43 Prediabetes R73.03 Assessment & Plan Assessment & Plan (1) (HFpEF) heart failure with preserved ejection fraction: Code(s): I50.30 - Unspecified diastolic (congestive) heart failure Category: Medical Plan: Clinically euvolemic on exam. Continue furosemide. Follow up with Cardiology as scheduled (2) Paroxysmal atrial fibrillation: Code(s): I48.0 - Paroxysmal atrial fibrillation Category: Medical Plan: Rate controlled. Continue on amiodarone, most recent TSH level within normal limits. Continue metoprolol for rate control. Continue Coumadin, INR goal 2.4, continue following with Coumadin clinic (3) HTN (hypertension): Code(s): I10 - Essential (primary) hypertension Category: Medical Plan: Controlled. Continue metoprolol, losartan (4) Benign prostatic hyperplasia with post-void dribbling: Code(s): N40.1 - Benign prostatic hyperplasia with lower urinary tract symptoms; N39.43 - Post-void dribbling Category: Medical Plan: Stable. Continue Flomax, tamsulosin for hypogonadism. Follow-up with Urology next month as scheduled (5) Prediabetes: Code(s): R73.03 - Prediabetes Category: Medical Plan: Managed with last hemoglobin A1c 5.9%. Continue low-carbohydrate diet and increased exercise. 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
== END 2024-07-20 10:41 | disposition home or self-care (01) ==
LOC: HO.HMCHD 09:45
PROVIDERS: PCP Internal Medicine; Visit Provider Physician Assistant
DX: I50.30 Unspecified diastolic (congestive) heart failure (principal); I48.0 Paroxysmal atrial fibrillation; I10 Essential (primary) hypertension; N40.1 Benign prostatic hyperplasia with lower urinary tract symptoms; N39.43 Post-void dribbling; R73.03 Prediabetes

== ENCOUNTER → 2024-07-20 09:45 | Outpatient (BNVA) | payer MEDICARE, SELFPAY | PROVIDERS: PCP Internal Medicine; Visit Provider Physician Assistant | DX: I11.0 Hypertensive heart disease with heart failure (principal); I50.30 Unspecified diastolic (congestive) heart failure; I48.0 Paroxysmal atrial fibrillation; N40.1 Benign prostatic hyperplasia with lower urinary tract symptoms; N39.43 Post-void dribbling; R73.03 Prediabetes | CPT/HCPCS: 96127; 99202 ==

== ENCOUNTER 2024-07-22 12:21 | Outpatient (REF) | payer MEDICARE, SELFPAY ==
[2024-07-22 13:42] LABS: Hematocrit 50.7 % (42.0-52.0); Hemoglobin 17.3 g/dl (14.0-18.0); Mean Corpuscular HGB Conc 34.1 g/dl (31.0-36.0); Mean Corpuscular Hemoglobin 31.4 pg (27.0-33.0); Mean Platelet Volume 11.1 fL (9.4-12.4); Platelet Count 162 X10*3/uL (160-400); Red Blood Count 5.51 X10*6/uL (4.60-5.80); Red Cell Distribution Width 12.6 % (11.0-16.0); White Blood Count 8.5 X10*3/uL (4.8-10.8)
[2024-07-22 14:25] LABS: Prostate Specific Antigen 1.92 ng/mL (<0.05-4.0)
[2024-07-27 16:13] LABS: Testosterone, Total 548 ng/dL (250-1100)
== END 2024-07-22 12:22 | disposition home or self-care (01) ==
LOC: HO.LAB 12:21
PROVIDERS: PCP Internal Medicine; Visit Provider Urology
DX: E29.1 Testicular hypofunction (principal); Z12.5 Encounter for screening for malignant neoplasm of prostate
CPT/HCPCS: 36415; 84153; 84403; 85027

== ENCOUNTER 2024-07-26 09:48 | Outpatient (AMB) | payer MEDICARE, SELFPAY ==
--- NOTE | 2024-07-26 09:51 | A.OFFVIS_ITS ---
Intake Visit Reasons: 6m PSA Intake Note: Patient is present for 6M/PSA Urology Medication:TAMSULOSIN,TESTOSTERONE,POTASSIUM CHLORIDE Antibiotic Allergy:NONE Blood Thinner:WARFARIN Dermatologist And Dermatopathologist Required: No Allergies fentanyl [FENTANYL] Allergy (Severe, Verified 07/26/24 09:52) ANAPHYLAXIS protamine [PROTAMINE] Allergy (Severe, Verified 07/26/24 09:52) ANAPHYLAXIS rocuronium [ROCURONIUM] Allergy (Severe, Verified 07/26/24 09:52) ANAPHYLAXIS sevoflurane [SEVOFLURANE] Allergy (Severe, Verified 07/26/24 09:52) ANAPHYLAXIS HPI Comments Details: Wesley is a very pleasant male. He is a patient of Dr. Schultz. He is seen for the following urologic conditions - hypogonadism - erectile dysfunction - lower urinary tract symptoms Testosterone pending Continues with gel Having difficulty with urination on tamsulosin Switch to 10 mg terazosin plus dutasteride Would like to move ahead with GreenLight laser Amiodarone for cardiac therapy - known anti - testosterone side effects Hypogonadism Longstanding - has been on replacement since 1999 - Patient came off testosterone in 2022. Testosterone promptly dropped from 630 to 200. This was clinical evidence of hypogonadism Uses gel Variable testosterone on follow-up Well-being is stable and improved with medication Laboratories - 12/11 T 592, P99, Hct 47, 06/11 705 0.9 44.5, 12/12 630 1.0 45, 05/15 206, 01/12 T 553 P 1.0, 06/13 504 1.0 46, 01/13 435, 07/15 T pending 1.9 51 Continue with application in surveillance Erectile dysfunction Status post removal and replacement of penile implant.?? Lower urinary tract symptoms Longstanding Current therapy tamsulosin 0.8 mg Current symptoms include nocturia PFSH Medical History (Updated 07/20/24 @ 10:11 by TESSA Vu) Prediabetes (HFpEF) heart failure with preserved ejection fraction Paroxysmal atrial fibrillation HTN (hypertension) History of cardioversion Benign prostatic hyperplasia with post-void dribbling Hypogonadism in male Surgical History History of penile implant History of cardiac radiofrequency ablation (RFA) Hx of endoscopy Hx of colonoscopy (~09/30/17) Family History (Updated 07/20/24 @ 10:23 by Cynthia Degroot MA) Father No problems noted. Mother CVD (cardiovascular disease) Heart murmur Social History Housing: House Patient Tobacco Use Status: Never used Tobacco e-Cigarette/Vaping Use: Never Used service: No Current occupational status: retired Current occupation: Rt handed Cognitive needs: No Hearing needs: No Vision needs: No Review of Systems Const Denies chills and Denies fever(s) Card Reports no additional complaints and Denies syncope Resp Denies cough GI Denies abdominal pain and Denies heartburn Reports as per HPI and Denies change in libido Neuro Denies syncope Psych Denies change in libido Endo Denies change in libido Physical Exam Const General: cooperative, healthy appearing, comfortable and no acute distress Orientation/consciousness: patient oriented x3 HEENT Face and sinus: Yes normal facial exam Mouth: moist mucous membranes Neck Neck: Yes normal visual inspection, Yes full ROM and Yes trachea midline Chest Chest palpation & inspection: normal inspection of the chest Resp Effort & Inspection: normal respiratory effort, able to speak in complete sentences and no respiratory distress GI Inspection: Yes normal to inspection Back/Spine/Pelvis Cervical Spine: normal cervical lordosis Thoracic/Lumbar Spine: thoracic and lumbar spine normal to inspection Skin General skin exam: no rashes or lesions noted Neuro General: patient oriented x3, gait normal, tone normal and moves all extremities Extrem General: Yes normal to inspection and Yes capillary refill normal Assessment & Plan Assessment & Plan (1) Benign prostatic hyperplasia with post-void dribbling: Code(s): N40.1 - Benign prostatic hyperplasia with lower urinary tract symptoms; N39.43 - Post-void dribbling Category: Medical (2) Hypogonadism in male: Comment: Testosterone gel Code(s): E29.1 - Testicular hypofunction Category: Medical Plan We discussed the nature of the decision and reasonable options for performing a prostate intervention. Interventions include TURP, GreenLight laser enucleation of the prostate, GreenLight laser ablation of the prostate, transurethral incision of the prostate, and I-Tend prostate procedure. Options such as medical therapy were discussed. The relative uncertainties and benefits related to each alternate procedure were adequately discussed. General surgical risks including, but not limited to, pain, bleeding, infection, myocardial infarction, pulmonary embolus, deep vein thrombosis and cerebrovascular accident which may result in further hospitalization were discussed. Full disclosure of the procedure as well as all major risks, benefits and complications were discussed including but not limited to damage to the urethra or bladder neck, recurrent BPH, retrograde ejaculation, bladder infection, urge, de lobo frequency, incomplete emptying, dysuria, remote chance of erectile dysfunction, epididymitis, and meatal stenosis. The success rate of the procedure was discussed. Success of the procedure in the short-term does not necessarily guarantee that long-term success will be maintained. Suitable follow up will need to be maintained. The patient showed understanding of discussion. An opportunity was provided for questions to be answered and wishes to proceed with the following procedure. - greenlight laser Orders: Orders Testosterone, Total 07/25/24 E29.1 - Testicular hypofunction Medications: New dutasteride 0.5 mg PO DAILY 90 days 90 caps 1RF N13.8 - Other obstructive and reflux uropathy, N39.43 - Post-void dribbling, N40.1 - Benign prostatic hyperplasia with lower urinary tract symptoms terazosin 10 mg PO BEDTIME 30 days 30 caps 1RF N39.43 - Post-void dribbling, N40.1 - Benign prostatic hyperplasia with lower urinary tract symptoms Patient Instructions: This note is constructed using voice recognition software. While every effort has been made to ensure accuracy seismograph observer errors may have been included. Imaging studies, laboratory and physical exam results were discussed and reviewed in detail. No major barriers to patient understanding were identified. An opportunity to ask questions regarding the treatment plan was provided. All questions were answered. The patient expressed understanding and agreement with the above treatment plan. The patient is aware they should contact our office by phone for worsening of their current condition or the appearance of new urologic symptoms. Compliance is encouraged with any medications and followup testing that is ordered. It is a privilege to participate in the urologic care of your patient. If you have any questions or concerns regarding treatment for the above conditions, or other urologic issues, please do not hesitate to contact me. The office telephone contact is [phone]. Sincerely, Dr Nilesh Bradshaw MD, [facility] - Urology Compassionate Specialist Care for the Genitourinary System Coding Level of Care Code Est Pt Level 4 (85758) Complex EM visit Add On G2211 Diagnoses Benign prostatic hyperplasia with post-void dribbling N40.1; N39.43 Hypogonadism in male E29.1
== END 2024-07-26 10:08 | disposition home or self-care (01) ==
LOC: HO.HUSH 09:49
PROVIDERS: PCP Internal Medicine; Visit Provider Urology
DX: N40.1 Benign prostatic hyperplasia with lower urinary tract symptoms (principal); N39.43 Post-void dribbling; E29.1 Testicular hypofunction
CPT/HCPCS: 99214; G2211

== ENCOUNTER → 2024-07-26 09:48 | Outpatient (BNVA) | payer MEDICARE, SELFPAY | PROVIDERS: PCP Internal Medicine; Visit Provider Urology | DX: E29.1 Testicular hypofunction (principal); N40.1 Benign prostatic hyperplasia with lower urinary tract symptoms; N39.43 Post-void dribbling | CPT/HCPCS: 99212 ==

== ENCOUNTER 2024-08-12 09:51 | Outpatient (AMB) | payer MEDICARE, SELFPAY ==
[2024-08-12 09:59] LABS: Prothrombin Time Whole Bld POC 29.9 sec (11.1-13.5); ~PT, ~INR - Anti Coag Clinic 2.5 (0.9-1.1)
--- NOTE | 2024-08-12 10:11 | MHC.OFFVISCO ---
Intake Intake Visit Reasons: Anticoagulation Allergies fentanyl [FENTANYL] Allergy (Severe, Verified 08/12/24 10:06) ANAPHYLAXIS protamine [PROTAMINE] Allergy (Severe, Verified 08/12/24 10:06) ANAPHYLAXIS rocuronium [ROCURONIUM] Allergy (Severe, Verified 08/12/24 10:06) ANAPHYLAXIS sevoflurane [SEVOFLURANE] Allergy (Severe, Verified 08/12/24 10:06) ANAPHYLAXIS Medication List - Last Reconciled 08/12/24 by Jeannie Leger RN amiodarone 100 mg PO DAILY ascorbate calcium (vitamin C) 500 mg PO DAILY atorvastatin 80 mg PO DAILY B-complex with vitamin C 1 tab PO DAILY dutasteride 0.5 mg PO DAILY 90 days furosemide 40 mg PO DAILY gabapentin 200 mg (2 x 100 mg) PO BEDTIME glucosamine HCl 500 mg PO BID losartan 50 mg PO DAILY losartan 50 mg PO DAILY melatonin 10 mg PO BEDTIME PRN metoprolol succinate ER 100 mg PO DAILY multivitamin (Multiple Vitamins tablet) 1 tab PO DAILY pantoprazole 40 mg PO DAILY pantoprazole 40 mg PO DAILY potassium chloride ER 10 mEq PO DAILY 90 days tamsulosin 0.8 mg (2 x 0.4 mg) PO BEDTIME 90 days terazosin 10 mg PO BEDTIME 30 days testosterone 2 pumps topically one pump to each shoulder daily; 28 days testosterone 2 pumps transdermal DAILY warfarin 5 mg See Protocol PO DAILY zolpidem 10 mg PO BEDTIME PRN Nursing Note INR: 2.5 in therapeutic range Medications and supplements reviewed- started new prostate med dutaseride- no warfarin interaction per micromedex pt to have prostate procedure in near future - date to be determined- has instructions to hold warfarin x 5 days - pt states no lovenox bridge - no warfarin booster doses. Pt stated he will have a catheter for a few days, he is aware of potential and likeliness of bleeding with procedure and will inform [facility] of date. Denies any signs and symptoms of bleeding or bruising or clotting. Bleeding, bruising, clotting discussed Nutritional guidance given- cont to eat a mix of fruits and vegetables Dose: keep same dose 5mg mwf/ 2.5mg x 4 days F/U INR: 1 month or per pt status Patient verbalizes understanding of instructions given Anti-Coag Initial Assessment Social Hx Patient Tobacco Use Status: Never used Tobacco Coding Level of Care Code Est Patient Level 1 Diagnoses Current use of anticoagulant therapy Z79.01 Results AMB INR Fingerstick AMB INR Fingerstick 2.5 Last Edit by Jeannie Leger RN on 08/12/24 10:02 MANUAL ENTRY Assessment & Plan Assessment & Plan (1) Current use of anticoagulant therapy: Code(s): Z79.01 - quality audit representative (current) use of anticoagulants Category: Medical
== END 2024-08-12 10:16 | disposition home or self-care (01) ==
LOC: HO.ACS 09:51
PROVIDERS: PCP Internal Medicine; Visit Provider Internal Medicine Medical Oncology
DX: Z79.01 Long term (current) use of anticoagulants (principal)

== ENCOUNTER → 2024-08-12 09:51 | Outpatient (BNVA) | payer MEDICARE, SELFPAY | PROVIDERS: PCP Internal Medicine; Visit Provider Internal Medicine Medical Oncology | DX: I48.20 Chronic atrial fibrillation, unspecified (principal); Z79.01 Long term (current) use of anticoagulants; Z51.81 Encounter for therapeutic drug level monitoring | CPT/HCPCS: 85610; 99211 ==

== ENCOUNTER 2024-08-29 11:51 | Day surgery (SDC) | payer MEDICARE, SELFPAY ==
[2024-08-26 08:17] VITALS: BMI 33.9
[2024-08-26 08:47] VITALS: BMI 33.9
--- NOTE | 2024-08-26 11:42 | P.CONAN_ITS ---
Documented by User: Melita Barbosa NP 08/26/24 11:46 HPI - Anesthesia Eval Consult details Narrative: 78yo M for Laser Ablation Prostate w/Green Light [place] [facility] [place]: Afib: warfarin HFpEF Stable, euvolemic at 12/2023 office. Stable for 1 year routine f/u. Per workload , pt optimized to proceed and ok'd to hold warfarin PMFSH Active Problems Active Problems: All Active Problems Left foot pain (Acute) Numbness of right lower extremity (Acute) Leg pain (Acute) Rotator cuff arthropathy of right shoulder (Acute) Rotator cuff arthropathy of left shoulder (Acute) Trigger finger of left hand (Acute) Osteoarthritis of left shoulder (Acute) Current use of anticoagulant therapy (Acute) Prediabetes (Acute) (HFpEF) heart failure with preserved ejection fraction (Acute) Paroxysmal atrial fibrillation (Acute) HTN (hypertension) (Acute) Benign prostatic hyperplasia with post-void dribbling (Acute) Hypogonadism in male (Acute) Past Medical History Medical History Prediabetes (HFpEF) heart failure with preserved ejection fraction Paroxysmal atrial fibrillation HTN (hypertension) History of cardioversion Benign prostatic hyperplasia with post-void dribbling Hypogonadism in male Family History Family History Father No problems noted. Mother CVD (cardiovascular disease) Heart murmur Surgical History Surgical History History of penile implant History of cardiac radiofrequency ablation (RFA) (~2015) Hx of endoscopy Hx of colonoscopy (~09/30/17) Social History Social History Household Members: Spouse Housing: House Are you a primary career placement services counselor to a significant other at home: No Do you presently have visiting nurse or other home services: No Patient Tobacco Use Status: Former Tobacco user Tobacco use type: Cigarette Smoked in Last 30 Days: No e-Cigarette/Vaping Use: Never Used Use of substances other than those prescribed or required for medical reasons: No Are you DNR?: No Advance Directives: No Advance Directives Information Provided: Yes Advance Directives on File: No service: No Current occupational status: retired Current occupation: [employer] Cognitive needs: No Hearing needs: No Vision needs: No Meds Allergies Allergy/AdvReac Type Severity Reaction Status Date / Time fentanyl [FENTANYL] Allergy Severe ANAPHYLAXIS Verified 08/29/24 12:18 hydromorphone [From Dilaudid] Allergy Severe Hypotension Verified 08/29/24 12:18 protamine [PROTAMINE] Allergy Severe ANAPHYLAXIS Verified 08/29/24 12:18 rocuronium [ROCURONIUM] Allergy Severe ANAPHYLAXIS Verified 08/29/24 12:18 sevoflurane [SEVOFLURANE] Allergy Severe ANAPHYLAXIS Verified 08/29/24 12:18 terazosin Allergy Severe Hypotension Verified 08/29/24 12:18 thiopental [From Pentothal] Allergy Severe Agitated Verified 08/29/24 12:18 Home Medications ?Medication ?Instructions ?Recorded ?Confirmed ?Last Taken ?Type losartan 50 mg tablet 50 mg PO DAILY 06/28/24 08/29/24 08/28/24 History B-complex with vitamin C 1 tab PO DAILY 07/20/24 08/26/24 Unknown History ascorbate calcium (vitamin C) 500 500 mg PO DAILY 07/20/24 08/26/24 Unknown History mg tablet glucosamine HCl 500 mg tablet 500 mg PO BID 07/20/24 08/26/24 08/25/24 History melatonin 10 mg capsule 10 mg PO BEDTIME PRN Insomnia 07/20/24 08/26/24 Unknown History multivitamin (Multiple Vitamins 1 tab PO DAILY 07/20/24 08/26/24 Unknown History tablet) testosterone 12.5 mg/1.25 gram per 2 pump transdermal DAILY 07/20/24 08/26/24 Unknown History pump actuation (1%) transdermal gel Exam Height,Weight and Vital Signs: Height 5 ft 8 in Weight 101 kg Narrative Narrative: EKG 12/2023 EKG Details: EKG shows sinus rhythm with first-degree AV block with normal QT interval ECHO 01/2024 Conclusions: - 1. Normal LV ejection fraction at 60-65% with pseudonormal filling pattern 2. Moderately dilated left atrium 3. Mild mitral regurgitation 4. Normal RV systolic pressure 5. Upper limits of normal ascending aortic size at 3.5 cm 6. No gross pericardial effusion Assessment and Plan Assessment Anesthesia Assessment: Chart Reviewed Documented by User: Morena Pete MD 08/29/24 14:29 [facility] Past Medical History Medical History Prediabetes (HFpEF) heart failure with preserved ejection fraction Paroxysmal atrial fibrillation HTN (hypertension) History of cardioversion Benign prostatic hyperplasia with post-void dribbling Hypogonadism in male Family History Family History Father No problems noted. Mother CVD (cardiovascular disease) Heart murmur Surgical History Surgical History History of penile implant History of cardiac radiofrequency ablation (RFA) (~2015) Hx of endoscopy Hx of colonoscopy (~09/30/17) History of Problems with Anesthesia: No Social History Social History Household Members: Spouse Housing: House Are you a primary career placement services counselor to a significant other at home: No Do you presently have visiting nurse or other home services: No Patient Tobacco Use Status: Former Tobacco user Tobacco use type: Cigarette Smoked in Last 30 Days: No e-Cigarette/Vaping Use: Never Used Use of substances other than those prescribed or required for medical reasons: No Are you DNR?: No Advance Directives: No Advance Directives Information Provided: Yes Advance Directives on File: No service: No Current occupational status: retired Current occupation: [employer] handed Cognitive needs: No Hearing needs: No Vision needs: No Meds Allergies Allergy/AdvReac Type Severity Reaction Status Date / Time fentanyl [FENTANYL] Allergy Severe ANAPHYLAXIS Verified 08/29/24 12:18 hydromorphone [From Dilaudid] Allergy Severe Hypotension Verified 08/29/24 12:18 protamine [PROTAMINE] Allergy Severe ANAPHYLAXIS Verified 08/29/24 12:18 rocuronium [ROCURONIUM] Allergy Severe ANAPHYLAXIS Verified 08/29/24 12:18 sevoflurane [SEVOFLURANE] Allergy Severe ANAPHYLAXIS Verified 08/29/24 12:18 terazosin Allergy Severe Hypotension Verified 08/29/24 12:18 thiopental [From Pentothal] Allergy Severe Agitated Verified 08/29/24 12:18 Home Medications ?Medication ?Instructions ?Recorded ?Confirmed ?Last Taken ?Type losartan 50 mg tablet 50 mg PO DAILY 06/28/24 08/29/24 08/28/24 History B-complex with vitamin C 1 tab PO DAILY 07/20/24 08/26/24 Unknown History ascorbate calcium (vitamin C) 500 500 mg PO DAILY 07/20/24 08/26/24 Unknown History mg tablet glucosamine HCl 500 mg tablet 500 mg PO BID 07/20/24 08/26/24 08/25/24 History melatonin 10 mg capsule 10 mg PO BEDTIME PRN Insomnia 07/20/24 08/26/24 Unknown History multivitamin (Multiple Vitamins 1 tab PO DAILY 07/20/24 08/26/24 Unknown History tablet) testosterone 12.5 mg/1.25 gram per 2 pump transdermal DAILY 07/20/24 08/26/24 Unknown History pump actuation (1%) transdermal gel Exam Airway Mallampati Class: III TM Dist: >3cm Neck ROM: Limited Loose/Missing/Broken Teeth: No Heart: RRR Lungs: CTA Assessment and Plan Assessment Anesthesia Assessment: Anesthesia Plan Discussed Final Anesthetic Review History of Problems with Anesthesia: No NPO: Yes ASA Class: III Final Preanesthetic Review: Meds/Allgs Chart Reviewed, Consent Obtained/Reviewed and Anes Risks/Benef Reviewed Patient Risk: Intermediate Procedure Risk: Low Anesthetic Plan Anesthetic Plan: GA Disposition: Standard PACU
[2024-08-29] VITALS (9 sets, daily range): BP systolic 113–160; BP diastolic 57–81; PULSE 50–62; RESP 16–18; TEMP 36.2–36.6; O2SAT 93–97; BMI 33.2
[2024-08-29 12:20] LABS: INTERNATIONAL NORM RATIO 1.2 (0.9-1.1); Prothrombin Time 13.4 SEC (10.9-12.4)
[2024-08-29] MEDS: Lactated Ringers 1,000 ML 50 ML IVCONT (12:37)
--- NOTE | 2024-08-29 13:33 | MHC.SHP ---
Pre-Procedural Eval Section A - 24 Hr Update-Section A only Date of Service: 08/29/24 The patient is an INPATIENT: No Changes since office visit: No Cold of Flu in the past 2 weeks, No New Medical Problems, No Changes in Medication and No Patient answered all questions The patient has been examined within 24 hours of the surgical procedure. The History & Physical has been completed within 30 days and I have reviewed it.: Yes Section B - Complete if H&P > 30 days Chief Complaint: Benign prostatic hyperplasia with lower urinary tr Allergies: Allergies Allergy/AdvReac Type Severity Reaction Status Date / Time fentanyl [FENTANYL] Allergy Severe ANAPHYLAXIS Verified 08/29/24 12:18 hydromorphone [From Dilaudid] Allergy Severe Hypotension Verified 08/29/24 12:18 protamine [PROTAMINE] Allergy Severe ANAPHYLAXIS Verified 08/29/24 12:18 rocuronium [ROCURONIUM] Allergy Severe ANAPHYLAXIS Verified 08/29/24 12:18 sevoflurane [SEVOFLURANE] Allergy Severe ANAPHYLAXIS Verified 08/29/24 12:18 terazosin Allergy Severe Hypotension Verified 08/29/24 12:18 thiopental [From Pentothal] Allergy Severe Agitated Verified 08/29/24 12:18 Plan Diagnosis/Plan: Unchanged (greenlight laser prostatectomy) I have reviewed the history and physical and performed a pertinent physical examination on my patient. No changes have occurred unless specified. Time Spent With Patient Time: Total time managing care of this patient today ____ minutes.
[2024-08-29] MEDS: levoFLOXacin/D5W 500 MG/100 ML PIGGYBACK 100 MG IV (14:00)
--- NOTE | 2024-08-29 14:56 | W.PM.OPN ---
Operative Note Operative Note Date of Service: 08/29/24 Narrative: PreOperative Diagnosis: Bladder outlet obstruction Post Operative Diagnosis: Bladder outlet obstruction Procedure: GreenLight Laser Enucleation of the prostate CPT 37556 Surgeon: Dr Nilesh Bradshaw Anesthesia: General History of bladder outlet obstruction. Treated with alpha-richmond and other medications. Still with symptoms. On cystoscopy in office has tight bladder neck with bilateral impingement. Recommendation for prostate procedure with laser enucleation of prostate. Risks and benefits have been discussed. Focus was placed on development of retrograde ejaculation which is a normal part of this procedure. Procedure: After informed consent was verified the patient was brought to the operating room and placed in a supine position. Anesthesia was administered per protocol. Patient was placed in modified dorsal lithotomy position and prepped and draped in a sterile fashion. Safety pause time-out was confirmed. Antibiotics have been given. A Twenty-four [place] laser cystoscope was inserted per urethra. No abnormalities were found of the anterior and bulbar urethra. The prostatic urethra shows tight bladder neck lateral lobe crowding. The bladder was examined and both ureteric orifices were seen in their normal positions away from the area of interest. Bladder trabeculation Grade 1. Using a GreenLight laser with initial settings of 80 simmons incisions were made at the 5 and 7 o'clock position. The incisions were taken down from the bladder neck down to the area just proximal of the veru. These were gradually deepened in order to define the lateral aspects of the median lobe area. The deep boundary of enucleation was defined by the prostate surgical capsule. Once clearly defined the grooves were extended in the lateral directions in order to create a deep groove. The median lobe was then ablated and enucleated tissue released into the bladder with the laser power increased to 120 W. small Once the median lobe area had been cleared, attention was directed to the lateral lobes. Starting with the patient's left lateral lobe. First the 05:00 o'clock groove was further developed. This was moved in the lateral direction to undermine the tissue on the lateral side running from the bladder neck to the prostate apex. The ureteric orifice was used to guide incisions. The laser fiber was placed at the 1 o'clock position and a secondary groove was developed down to the level of prostatic capsule. The creation of a second deep groove defined a segment of intervening tissue similar to a slice of orange. At the apex of the prostate the laser was used to vertically link the two grooves releasing the intervening tissue and creating a segment of tissue. This tissue was then removed with a combination of enucleation and ablation working from the apex toward the bladder neck. A similar procedure was repeated on the patient's right-hand side. The only differences being the position of the lateral groove at he 7 o'clock position and the secondary groove at the 11 o'clock position, Otherwise the procedure was developed in a mirror fashion. Laser Power 140w. After the majority of tissue had been debulked remnant tissue was ablated with the side fire laser and the curve of the prostate followed up each side wall clearly defining the anterior remnant strip that remained between the 11 and 1 o'clock positions. At completion debris and pieces of prostate were removed from the bladder with irrigation. Both ureteric orifices were reviewed again in shown to be patent in away from any areas of energy damage. The apical area was reviewed and any stray mucosal ooze was controlled. A 22 [place] 30 cc balloon Elizabeth catheter was placed into the bladder using a flexible stylet. Clear efflux was obtained upon irrigation with a Praful piston syringe. 30 cc was placed in the balloon and gentle traction was placed. A snap was used to hold tension on the catheter to control bleeding during patient moved and transported. A drainage bag was placed. Once transportation is complete to the PACU the snap will be removed. The patient tolerated the procedure well, he was extubated in the operating and transferred in a stable condition to the recovery area. Total Power 176 kW Lasing time 26.19 Pathology: Prostate tissue Drains: Elizabeth catheter
== END 2024-08-29 16:26 | disposition home or self-care (01) ==
PROVIDERS: Nurse Practitioner; PCP Internal Medicine; Visit Provider Urology
PROC: (CPT 52648; principal; 2024-08-29 13:50)
DX: N40.1 Benign prostatic hyperplasia with lower urinary tract symptoms (principal); N13.8 Other obstructive and reflux uropathy; N39.43 Post-void dribbling; R35.1 Nocturia; N32.89 Other specified disorders of bladder; E29.1 Testicular hypofunction; N52.9 Male erectile dysfunction, unspecified; Z96.0 Presence of urogenital implants; I11.0 Hypertensive heart disease with heart failure; I50.30 Unspecified diastolic (congestive) heart failure; I48.0 Paroxysmal atrial fibrillation; R73.03 Prediabetes; Z79.899 Other long term (current) drug therapy; Z88.5 Allergy status to narcotic agent; Z88.8 Allergy status to other drugs, medicaments and biological substances; Z87.891 Personal history of nicotine dependence
CPT/HCPCS: 52649; 36415; 85610; 88305; J0131; J1956; J2003; J2704; J3010

== ENCOUNTER → 2024-08-29 11:51 | Outpatient (BNV) | payer MEDICARE, SELFPAY | PROVIDERS: PCP Internal Medicine; Visit Provider Urology | DX: N32.0 Bladder-neck obstruction (principal) | CPT/HCPCS: 52649 ==

== ENCOUNTER → 2024-08-31 09:57 | Outpatient (BNVA) | payer MEDICARE, SELFPAY | PROVIDERS: PCP Internal Medicine; Visit Provider Urology | DX: N40.1 Benign prostatic hyperplasia with lower urinary tract symptoms (principal); N13.8 Other obstructive and reflux uropathy; N39.43 Post-void dribbling | CPT/HCPCS: 51700; 51798 ==

== ENCOUNTER 2024-09-15 08:24 | Outpatient (AMB) | payer MEDICARE, SELFPAY ==
[2024-09-15 08:35] LABS: Prothrombin Time Whole Bld POC 13.9 sec (11.1-13.5); ~PT, ~INR - Anti Coag Clinic 1.2 (0.9-1.1)
--- OUTSIDE RECORDS SUMMARY | 2024-09-15 08:38 | XMS_ITS | Patient Health Record ---
Author Organization [facility] Address [address] [place] [address] Care Team Providers Care Home Health Rn Name Role Phone Елена(inactive) Shon ORO Primary Care Provider U Sotero Nieto Unavailable [phone] Allergies Allergen (clinical drug ingredient) Drug/Non Drug Allergy documented on EMR Reaction Allergy Type Onset Date Status sevoflurane Sevoflurane Unknown Drug Allergy Act alberta protamine sulfate (LONGTERM) Protamine Sulfate Unknown Drug All ergy Active Reason For Referral No Information Medications Medication SIG (Take, Route, Frequency, Duration) Notes Start Date End Date Status Vitamin C Active Amiodarone HCl 100 MG TAKE 1 TABLET BY M OUTH ONCE A DAY Oral for 30 Active Colace Active Losartan Potassium 50 MG TAKE 1 TABLET E VERY DAY Oral for 30 Active Garlic Oil Active Atorvastatin Calcium 80 MG TAKE 1 TABLET BY MOUTH EVERY DAY Oral for 30 Active Klor-Con 10 10 MEQ TAKE 1 TABLET BY MARGRET TH ONCE A DAY Oral for 30 Active Pantoprazole Sodium 40 MG TAKE 1 TABLET BY MOUTH ONCE A DAY Oral for 30 Active Furosemide 40 MG TAKE 2 TABLETS BY MO UTH ONCE A DAY Oral for 30 Active AndroGel Pump 20.25 MG/ACT (1.62%) 1 application to skin to affected area in the morning Transdermal Once a day Active Acetaminophen Active Ambien 10 MG 1 tablet at bedtime as needed Orally Once a day Active Glucosamine Chondr Complex Active Metoprolol Succinate ER 100 MG TAKE 1 TABLET BY MOUTH ONCE A DAY Oral for 30 Active [place] 3 Active Warfarin Sodium 5 MG TAKE 1 TABLET BY MO UTH EVERY DAY Oral for 30 Active Joint Health Active Problems Problem Type SNOMED Code ICD Code Onset Dates Problem Status W/U Status Risk Notes Problem 84677961 Blood in stool (K92.1) Active confirmed Problem 448989619 Gastroesophageal reflux disease without esophagitis (K21.9) Active confirmed Problem 695389778 Family history o f colon cancer (Z80.0) Active confirmed Problem 05344403 Rectal bleed (K62.5) Active confirmed Plan Of Treatment Future Test Test Name Order Date COLONOSCOPY 02/18/2012 COLONOSCOPY 06/30/2017 Insurance Providers Payer Name Payer Address Payer Phone Subscriber Number Group Number Insured Name Patient Relationship to Insured Coverage Start Date Coverage End Date [facility] [address] [place] [phone] [id number] [place] Self - patient is the insured Medicare of [place] [employer] [address] [place] [address] [id number] [place] Self - patient is the insured Medical (General) History Medical History History ICD Code Gastroesophageal reflux--neg EGD in 2001 --small HH Hypertension Hyperlipidemia Denies [place],DM,CVA,Lung disease,renal dise ase Afib---had reported successf ul ablation in [place] in 2012--sees Dr. Vicente----he describes some type of adverse reaction to sedation during his ablation procedure and was told to avoid medications including fentanyl negative screening colonosco pies in 2001, 2006, and 04/2012, other than hyperplastic polyps, diverticulosis, and internal hemorrhoids Surgical History Surgery Date(Month/Year) Broken ankle
--- NOTE | 2024-09-15 08:53 | MHC.OFFVISCO ---
Intake Intake Visit Reasons: Anticoagulation Allergies fentanyl (FENTANYL) Allergy (Severe, Verified 08/29/24 12:18) ANAPHYLAXIS hydromorphone (From Dilaudid) Allergy (Severe, Verified 08/29/24 12:18) Hypotension protamine (PROTAMINE) Allergy (Severe, Verified 08/29/24 12:18) ANAPHYLAXIS rocuronium (ROCURONIUM) Allergy (Severe, Verified 08/29/24 12:18) ANAPHYLAXIS sevoflurane (SEVOFLURANE) Allergy (Severe, Verified 08/29/24 12:18) ANAPHYLAXIS terazosin Allergy (Severe, Verified 08/29/24 12:18) Hypotension thiopental (From Pentothal) Allergy (Severe, Verified 08/29/24 12:18) Agitated Nursing Note INR: 1.2 out of therapeutic range of 2-3 Pt is holding warfarin for a procedure tomorrow, wisdom tooth extraction. He doesn't remember if it has hill 3 or 5 days of holding but INR is low. [facility] called with the result. Medications and supplements reviewed Patient status: well s/p prostate biopsy on 08/29/24. Had bleeding complications but stopped now. Medications or supplements: no changes Diet: usual diet for pt Denies any signs and symptoms of bleeding or clotting or unusual bruising Bleeding, bruising, clotting discussed Nutritional guidance given: avoid greens until return Dose: after procedure pt will take 5mg X 4 days and then 2.5mg then retest F/U INR Date: 09/21/24?? Patient verbalizing understanding of instructions given. Anti-Coag Initial Assessment Social Hx Patient Tobacco Use Status: Former Tobacco user Tobacco use type: Cigarette Alcohol intake frequency: does not drink Coding Level of Care Code Est Patient Level 1 Diagnoses Current use of anticoagulant therapy Z79.01 Assessment & Plan Assessment & Plan (1) Current use of anticoagulant therapy: Code(s): Z79.01 - correction (current) use of anticoagulants Category: Medical
== END 2024-09-15 09:03 | disposition home or self-care (01) ==
LOC: HO.ACS 08:24
PROVIDERS: PCP Internal Medicine; Visit Provider Internal Medicine Medical Oncology
DX: Z79.01 Long term (current) use of anticoagulants (principal)

== ENCOUNTER → 2024-09-15 08:24 | Outpatient (BNVA) | payer MEDICARE, SELFPAY | PROVIDERS: PCP Internal Medicine; Visit Provider Internal Medicine Medical Oncology | DX: Z79.01 Long term (current) use of anticoagulants (principal) | CPT/HCPCS: 85610; 99211 ==

== ENCOUNTER 2024-09-21 14:03 | Outpatient (AMB) | payer MEDICARE, SELFPAY ==
[2024-09-21 14:10] LABS: Prothrombin Time Whole Bld POC 16.4 sec (11.1-13.5); ~PT, ~INR - Anti Coag Clinic 1.4 (0.9-1.1)
--- NOTE | 2024-09-21 15:27 | MHC.OFFVISCO ---
Intake Intake Visit Reasons: Anticoagulation Allergies fentanyl (FENTANYL) Allergy (Severe, Verified 09/21/24 14:04) ANAPHYLAXIS hydromorphone (From Dilaudid) Allergy (Severe, Verified 08/29/24 12:18) Hypotension protamine (PROTAMINE) Allergy (Severe, Verified 09/21/24 14:04) ANAPHYLAXIS rocuronium (ROCURONIUM) Allergy (Severe, Verified 09/21/24 14:04) ANAPHYLAXIS sevoflurane (SEVOFLURANE) Allergy (Severe, Verified 09/21/24 14:04) ANAPHYLAXIS terazosin Allergy (Severe, Verified 09/21/24 14:04) Hypotension thiopental (From Pentothal) Allergy (Severe, Verified 09/21/24 14:04) Agitated Medication List - Last Reconciled 09/21/24 by Morena Durand RN amiodarone 100 mg PO DAILY ascorbate calcium (vitamin C) 500 mg PO DAILY atorvastatin 80 mg PO DAILY B-complex with vitamin C 1 tab PO DAILY dutasteride 0.5 mg PO DAILY 90 days furosemide 40 mg PO DAILY gabapentin 200 mg (2 x 100 mg) PO BEDTIME glucosamine HCl 500 mg PO BID losartan 50 mg PO DAILY melatonin 10 mg PO BEDTIME PRN metoprolol succinate ER 100 mg PO DAILY multivitamin (Multiple Vitamins tablet) 1 tab PO DAILY pantoprazole 40 mg PO DAILY potassium chloride ER 10 mEq PO DAILY 90 days testosterone 2 pumps topically one pump to each shoulder daily; 28 days testosterone 2 pumps transdermal DAILY warfarin 5 mg See Protocol PO DAILY zolpidem 10 mg PO BEDTIME PRN Nursing Note PT.RESTARTED WARFARIN ON 09/17. HE HAS HAD NO BLEEDING OR PAIN FROM EXTRACTION SITE. BOOST WARFARIN TODAY AND TOMORROW NOTED. PCP(LACEY)NOTIFIED OF LOW INR AND PLAN OF CARE. NO GREENS 3 DAYS. PT.WILL INCREASE REDS GOOD UNDERSTANDING OF DOSING INSTR. Anti-Coag Initial Assessment Social Hx Patient Tobacco Use Status: Former Tobacco user Tobacco use type: Cigarette Alcohol intake frequency: does not drink Coding Level of Care Code Est Patient Level 1 Diagnoses Current use of anticoagulant therapy Z79.01 Results AMB INR Fingerstick AMB INR Fingerstick 1.4 Last Edit by Morena Durand RN on 09/21/24 14:11 Assessment & Plan Assessment & Plan (1) Current use of anticoagulant therapy: Code(s): Z79.01 - director long term care (current) use of anticoagulants Category: Medical
== END 2024-09-21 15:34 | disposition home or self-care (01) ==
LOC: HO.ACS 14:03
PROVIDERS: PCP Internal Medicine; Visit Provider Internal Medicine Medical Oncology
DX: Z79.01 Long term (current) use of anticoagulants (principal)

== ENCOUNTER → 2024-09-21 14:03 | Outpatient (BNVA) | payer MEDICARE, SELFPAY | PROVIDERS: PCP Internal Medicine; Visit Provider Internal Medicine Medical Oncology | DX: I48.20 Chronic atrial fibrillation, unspecified (principal); Z79.01 Long term (current) use of anticoagulants; Z51.81 Encounter for therapeutic drug level monitoring | CPT/HCPCS: 85610; 99211 ==

== ENCOUNTER 2024-09-28 09:37 | Outpatient (AMB) | payer MEDICARE, SELFPAY ==
[2024-09-28 09:44] LABS: Prothrombin Time Whole Bld POC 40.7 sec (11.1-13.5); ~PT, ~INR - Anti Coag Clinic 3.4 (0.9-1.1)
--- NOTE | 2024-09-28 09:52 | MHC.OFFVISCO ---
Intake Intake Visit Reasons: Anticoagulation Allergies fentanyl (FENTANYL) Allergy (Severe, Verified 09/28/24 09:37) ANAPHYLAXIS hydromorphone (From Dilaudid) Allergy (Severe, Verified 09/28/24 09:37) Hypotension protamine (PROTAMINE) Allergy (Severe, Verified 09/28/24 09:37) ANAPHYLAXIS rocuronium (ROCURONIUM) Allergy (Severe, Verified 09/28/24 09:37) ANAPHYLAXIS sevoflurane (SEVOFLURANE) Allergy (Severe, Verified 09/28/24 09:37) ANAPHYLAXIS terazosin Allergy (Severe, Verified 09/28/24 09:37) Hypotension thiopental (From Pentothal) Allergy (Severe, Verified 09/28/24 09:37) Agitated Medication List - Last Reconciled 09/28/24 by Morena Durand RN amiodarone 100 mg PO DAILY ascorbate calcium (vitamin C) 500 mg PO DAILY atorvastatin 80 mg PO DAILY B-complex with vitamin C 1 tab PO DAILY dutasteride 0.5 mg PO DAILY 90 days furosemide 40 mg PO DAILY gabapentin 200 mg (2 x 100 mg) PO BEDTIME glucosamine HCl 500 mg PO BID losartan 50 mg PO DAILY melatonin 10 mg PO BEDTIME PRN metoprolol succinate ER 100 mg PO DAILY multivitamin (Multiple Vitamins tablet) 1 tab PO DAILY pantoprazole 40 mg PO DAILY potassium chloride ER 10 mEq PO DAILY 90 days testosterone 2 pumps topically one pump to each shoulder daily; 28 days testosterone 2 pumps transdermal DAILY warfarin 5 mg See Protocol PO DAILY zolpidem 10 mg PO BEDTIME PRN Nursing Note NO CP,SOB,DIET/MED CHANGES,FALLS OR SX OF BLEEDING. CONTINUE PRESENT DOSE AND FOLLOW-UP IN 4 WEEKS. GOOD UNDERSTANDING OF DOSING INSTR. Anti-Coag Initial Assessment Social Hx Patient Tobacco Use Status: Former Tobacco user Tobacco use type: Cigarette Alcohol intake frequency: does not drink Coding Level of Care Code Est Patient Level 1 Diagnoses Current use of anticoagulant therapy Z79.01 Assessment & Plan Assessment & Plan (1) Current use of anticoagulant therapy: Code(s): Z79.01 - nursing home (current) use of anticoagulants Category: Medical
--- OUTSIDE RECORDS SUMMARY | 2024-09-28 10:06 | XMS_ITS | Patient Health Record ---
Author Organization [facility] Address [address] [place] [address] Care Team Providers Care Is Technician Name Role Phone Елена(inactive) Shon ORO Primary Care Provider U Sotero Nieto Unavailable [phone] Allergies Allergen (clinical drug ingredient) Drug/Non Drug Allergy documented on EMR Reaction Allergy Type Onset Date Status sevoflurane Sevoflurane Unknown Drug Allergy Act alberta protamine sulfate (FDC) Protamine Sulfate Unknown Drug All ergy Active [...] 10 10 MEQ TAKE 1 TABLET BY MAGRRET TH ONCE A DAY Oral for 30 [...] ONCE A DAY Oral for 30 Active [place] 3 Active Warfarin Sodium 5 MG TAKE 1 TABLET BY MO UTH EVERY DAY Oral for 30 Active Joint Health Active Problems Problem Type SNOMED Code ICD Code Onset Dates Problem Status W/U Status Risk Notes Problem 31104624 Blood in stool (K92.1) Active confirmed Problem 667032173 Gastroesophageal reflux disease without esophagitis (K21.9) Active confirmed Problem 097849504 Family history o f colon cancer (Z80.0) Active confirmed Problem 11056274 Rectal bleed (K62.5) Active confirmed Plan Of Treatment Future Test Test Name Order Date COLONOSCOPY 02/18/2012 COLONOSCOPY 06/30/2017 Insurance Providers Payer Name Payer Address Payer Phone Subscriber Number Group Number Insured Name Patient Relationship to Insured Coverage Start Date Coverage End Date [facility] [address] [place] [phone] [id number] MUSTAPHA RIVER Self - patient is the insured [place] of [place] [address] [place] [address] [id number] MUSTAPHA RIVER Self - patient is the insured Medical (General) History Medical History History ICD Code Gastroesophageal reflux--neg EGD in 2001 --small HH Hypertension Hyperlipidemia Denies [place],DM,CVA,Lung disease,renal dise ase Afib---had reported successf ul ablation in [place] in 2012--sees Dr. Vicente----he describes some type of adverse reaction to sedation during his ablation procedure and was told to avoid medications including fentanyl negative screening colonosco pies in 2001, 2006, and 04/2012, other than hyperplastic polyps, diverticulosis, and internal hemorrhoids Surgical History Surgery Date(Month/Year) Broken ankle
== END 2024-09-28 10:09 | disposition home or self-care (01) ==
LOC: HO.ACS 09:37
PROVIDERS: PCP Internal Medicine; Visit Provider Internal Medicine Medical Oncology
DX: Z79.01 Long term (current) use of anticoagulants (principal)

== ENCOUNTER → 2024-09-28 09:37 | Outpatient (BNVA) | payer MEDICARE, SELFPAY | PROVIDERS: PCP Internal Medicine; Visit Provider Internal Medicine Medical Oncology | DX: Z79.01 Long term (current) use of anticoagulants (principal) | CPT/HCPCS: 85610; 99211 ==

== ENCOUNTER 2024-10-07 13:30 | Outpatient (AMB) | payer MEDICARE, SELFPAY ==
--- OUTSIDE RECORDS SUMMARY | 2024-10-07 13:32 | XMS_ITS | Clinical Summary ---
Author Organization [facility] Address [address] [facility] [address] [place] [address] Phone Care Team Providers Care Chemical Research Engineer Name Role Phone Phil Mccullough MD Primary Care Provider Unav ailable Allergies Active Allergy Reactions Criticality Noted Date Comments Protamine Hypotension 11/23/2013 Social History Tobacco Use Types Packs/Day Years Used Date Smoking Tobacco: Unknown Education Answer Date Recorded Are you interested in more education? Not on duane e 07/18/2022 Are you concerned about learning? Not on file 07/18/2022 No 07/18/2022 No 07/18/2022 Digital Access Answer Date Recorded No 08/18/2022 No 08/18/2022 No 08/18/2022 Reliable internet access at home? Not on file 08/18/2022 Device with a working camera? Not on file Sex and Gender Information Value Date Recorded Sex Assigned at Not on file Legal Sex Male 9:37 AM EDT Gender Identity Not on file Sexual Orientation Not on file Last Filed Vital Signs Vital Sign Reading Time Taken Comments Blood Pressure 130/93 09/19/2013 8:45 AM EDT Pulse 85 09/19/2013 8:45 AM EDT Temperature - - Respiratory Rate - - Oxygen Saturation - - Inhaled Oxygen Concentration - - Weight 95.3 kg (210 lb) 09/19/2013 8:45 AM EDT Height 177.2 cm (5' 9.75 ) 09/19/2013 8:45 AM ED T Body Mass Index 30.35 09/19/2013 8:45 AM EDT Plan of Treatment Health Maintenance Due Date Last Done Comments Adult Td,Tdap Booster 1945 DEPRESSION SCREENING 1955 ZOSTER VACCINES (1 of 2) 09/10/1993 RSV VACCINE (1 - 1-dose 75+ series) 09/10/2018 COVID-19 VACCINE (2023-2 5 season) 2023 06/02/2020, 04/30/2020 PNEUMOCOCCAL VACCINES (50+ years) Completed 12/29/2018, 01/09/2017 HEPATITIS A VACCINES Aged Out No long er eligible based on patient's age to complete this topic HIB VACCINES Aged Out No longer eligi ble based on patient's age to complete this topic MENINGOCOCCAL VACCINES (ACWY) Aged Out No longer eligible based on patient's age to complete this topic MENINGOCOCCAL VACCINES (B) Aged Out N o longer eligible based on patient's age to complete this topic Medical Devices Not on file Care Teams Chemical Research Engineer Relationship Specialty Start Date End Date Phil Mccullough MD PCP - General 07/27/14 Additional Source Comments The information contained in this document represents components of the legal health record. It is not the complete legal health record.[facility]
--- OUTSIDE RECORDS SUMMARY | 2024-10-07 13:33 | XMS_ITS | Patient Health Record ---
Author Organization [facility] Address [address] [place] [address] Care Team Providers Care Real Estate Operations Manager Name Role Phone Елена(inactive) Shon ORO Primary Care Provider U Sotero Nieto Unavailable [phone] Allergies Allergen (clinical drug ingredient) Drug/Non Drug Allergy documented on EMR Reaction Allergy Type Onset Date Status sevoflurane Sevoflurane Unknown Drug Allergy Act alberta protamine sulfate ([place]) Protamine Sulfate Unknown Drug All ergy Active [...] ONCE A DAY Oral for 30 Active [place] 3 Active Warfarin Sodium 5 MG TAKE 1 TABLET BY MO UTH EVERY DAY Oral for 30 Active Joint Health Active Problems Problem Type SNOMED Code ICD Code Onset Dates Problem Status W/U Status Risk Notes Problem 69192603 Blood in stool (K92.1) Active confirmed Problem 986353345 Gastroesophageal reflux disease without esophagitis (K21.9) Active confirmed Problem 872975811 Family history o f colon cancer (Z80.0) Active confirmed Problem 91161893 Rectal bleed (K62.5) Active confirmed Plan Of Treatment Future Test Test Name Order Date COLONOSCOPY 02/18/2012 COLONOSCOPY 06/30/2017 Insurance Providers Payer Name Payer Address Payer Phone Subscriber Number Group Number Insured Name Patient Relationship to Insured Coverage Start Date Coverage End Date [facility] [address] [place] [phone] [id number] MUSTAPHA RIVER Self - patient is the [place] of [place] [address] [place] [address] [id number] MUSTAPHA RIVER Self - patient is the insured Medical (General) History Medical History History ICD Code Gastroesophageal reflux--neg EGD in 2001 --small HH Hypertension Hyperlipidemia Denies [place],DM,CVA,Lung disease,renal dise ase Afib---had reported successf ul ablation in [place] in 2012--sees Dr. Vicente----he describes some type of adverse reaction to sedation during his ablation procedure and was told to avoid medications including fentanyl negative screening colonosco pies in 2001, 2006, and 04/2012, other than hyperplastic polyps, diverticulosis, and internal hemorrhoids Surgical History Surgery Date(Month/Year) Broken ankle
--- NOTE | 2024-10-07 13:38 | MHC.OFFVIS ---
Intake Visit Reasons: Greenlight laser follow up Intake Note: Patient is present for GREENLIGHT LASER F/U Urology Medication:TESTOSTRONE,DUTASTERIDE,POTASSIUM CHLORIDE Antibiotic Allergy:NONE Blood Thinner:WARFARIN TODAY'S PVR:0ML'S Buffing Machine Operator Semiautomatic Required: No Allergies fentanyl (FENTANYL) Allergy (Severe, Verified 10/07/24 13:40) ANAPHYLAXIS hydromorphone (From Dilaudid) Allergy (Severe, Verified 10/07/24 13:40) Hypotension protamine (PROTAMINE) Allergy (Severe, Verified 10/07/24 13:40) ANAPHYLAXIS rocuronium (ROCURONIUM) Allergy (Severe, Verified 10/07/24 13:40) ANAPHYLAXIS sevoflurane (SEVOFLURANE) Allergy (Severe, Verified 10/07/24 13:40) ANAPHYLAXIS terazosin Allergy (Severe, Verified 10/07/24 13:40) Hypotension thiopental (From Pentothal) Allergy (Severe, Verified 10/07/24 13:40) Agitated HPI Comments Details: Wesley is a very pleasant male. He is a patient of Dr. Schultz. He is seen for the following urologic conditions - hypogonadism - erectile dysfunction - lower urinary tract symptoms Testosterone 540 GreenLight laser 09/14 Had been on Coumadin so had some degree of bleeding up until 2 weeks ago Follow-up six-month repeat testosterone Amiodarone for cardiac therapy - known anti - testosterone side effects Hypogonadism Longstanding - has been on replacement since 1999 - Patient came off testosterone in 2022. Testosterone promptly dropped from 630 to 200. This was clinical evidence of hypogonadism Uses gel Variable testosterone on follow-up Well-being is stable and improved with medication Laboratories - 12/11 T 592, P99, Hct 47, 06/11 705 0.9 44.5, 12/12 630 1.0 45, 05/15 206, 01/12 T 553 P 1.0, 06/13 504 1.0 46, 01/13 435, 07/15 T 540 1.9 51 Continue with application in surveillance Erectile dysfunction Status post removal and replacement of penile implant.?? Lower urinary tract symptoms Longstanding Current therapy tamsulosin 0.8 mg Current symptoms include nocturia PFSH Medical History Prediabetes (HFpEF) heart failure with preserved ejection fraction Paroxysmal atrial fibrillation HTN (hypertension) History of cardioversion Benign prostatic hyperplasia with post-void dribbling Hypogonadism in male Surgical History History of penile implant History of cardiac radiofrequency ablation (RFA) (~2015) Hx of endoscopy Hx of colonoscopy (~09/30/17) Family History Father No problems noted. Mother CVD (cardiovascular disease) Heart murmur Social History Household Members: Spouse Housing: House Are you a primary healthcare associate to a significant other at home: No Do you presently have visiting nurse or other home services: No 75 years or older and lives alone: No Patient Tobacco Use Status: Former Tobacco user Tobacco use type: Cigarette e-Cigarette/Vaping Use: Never Used service: No Current occupational status: retired Current occupation: Rt handed Cognitive needs: No Hearing needs: No Vision needs: No Review of Systems Const Denies chills and Denies fever(s) Card Reports no additional complaints and Denies syncope Resp Denies cough GI Denies abdominal pain and Denies heartburn Reports as per HPI and Denies change in libido Neuro Denies syncope Psych Denies change in libido Endo Denies change in libido Physical Exam Const General: cooperative, healthy appearing, comfortable and no acute distress Orientation/consciousness: patient oriented x3 HEENT Face and sinus: Yes normal facial exam Mouth: moist mucous membranes Neck Neck: Yes normal visual inspection, Yes full ROM and Yes trachea midline Chest Chest palpation & inspection: normal inspection of the chest Resp Effort & Inspection: normal respiratory effort, able to speak in complete sentences and no respiratory distress GI Inspection: Yes normal to inspection Back/Spine/Pelvis Cervical Spine: normal cervical lordosis Thoracic/Lumbar Spine: thoracic and lumbar spine normal to inspection Skin General skin exam: no rashes or lesions noted Neuro General: patient oriented x3, gait normal, tone normal and moves all extremities Extrem General: Yes normal to inspection and Yes capillary refill normal Office Procedures Post Void Residual Post Residual Void Post Void Residual (PVR): 0 [id number]-[id number] Void Residual by ultrasound Assessment & Plan Assessment & Plan (1) Benign prostatic hyperplasia with post-void dribbling: Code(s): N40.1 - Benign prostatic hyperplasia with lower urinary tract symptoms; N39.43 - Post-void dribbling Category: Medical (2) Hypogonadism in male: Comment: Testosterone gel Code(s): E29.1 - Testicular hypofunction Category: Medical Plan Six-month follow-up lab work Orders: Orders Testosterone, Total 5 Months E29.1 - Testicular hypofunction Prostate Specific Antigen 5 Months E29.1 - Testicular hypofunction Hematocrit 5 Months E29.1 - Testicular hypofunction Medications: Changed From testosterone 2 pumps transdermal DAILY E29.1 - Testicular hypofunction To testosterone 2 pumps transdermal DAILY 150 grams 4RF 30 days E29.1 - Testicular hypofunction Patient Instructions: This note is constructed using voice recognition software. While every effort has been made to ensure accuracy superannuation funds manager errors may have been included. Imaging studies, laboratory and physical exam results were discussed and reviewed in detail. No major barriers to patient understanding were identified. An opportunity to ask questions regarding the treatment plan was provided. All questions were answered. The patient expressed understanding and agreement with the above treatment plan. The patient is aware they should contact our office by phone for worsening of their current condition or the appearance of new urologic symptoms. Compliance is encouraged with any medications and followup testing that is ordered. It is a privilege to participate in the urologic care of your patient. If you have any questions or concerns regarding treatment for the above conditions, or other urologic issues, please do not hesitate to contact me. The office telephone contact is [phone]. Sincerely, Dr Nilesh Bradshaw MD, [facility] - Urology Compassionate Specialist Care for the Genitourinary System Coding Level of Care Code Est Pt Level 3 (14966) Complex EM visit Add On G2211 Diagnoses Benign prostatic hyperplasia with post-void dribbling N40.1; N39.43 Hypogonadism in male E29.1 CPT Codes Post Residual Void - PVR CPT Code: 19453-Nijr Void Residual by ultrasound ([id number])
== END 2024-10-07 14:54 | disposition home or self-care (01) ==
LOC: HO.HUSH 13:31
PROVIDERS: PCP Internal Medicine; Visit Provider Urology
DX: N40.1 Benign prostatic hyperplasia with lower urinary tract symptoms (principal); N39.43 Post-void dribbling; E29.1 Testicular hypofunction
CPT/HCPCS: 99024

== ENCOUNTER → 2024-10-07 13:30 | Outpatient (BNVA) | payer MEDICARE, SELFPAY | PROVIDERS: PCP Internal Medicine; Visit Provider Urology | DX: E29.1 Testicular hypofunction (principal); N40.1 Benign prostatic hyperplasia with lower urinary tract symptoms; N39.43 Post-void dribbling | CPT/HCPCS: 51798; 99212 ==

== ENCOUNTER 2024-10-27 09:15 | Outpatient (AMB) | payer MEDICARE, SELFPAY ==
[2024-10-27 09:36] LABS: Prothrombin Time Whole Bld POC 39.8 sec (11.1-13.5); ~PT, ~INR - Anti Coag Clinic 3.3 (0.9-1.1)
--- OUTSIDE RECORDS SUMMARY | 2024-10-27 09:38 | XMS_ITS | Clinical Summary ---
Author Organization [facility] Address [address] [place] [address] Phone Care Team Providers Care Senior Patient Account Representative Name Role Phone Phil Mccullough MD Primary [...] Medical Devices Not on file Care Teams Senior Patient Account Representative Relationship Specialty Start Date End Date Phil Mccullough MD PCP - General 07/27/14 Additional Source Comments The information contained in this document represents components of the legal health record. It is not the complete legal health record.[facility]
--- OUTSIDE RECORDS SUMMARY | 2024-10-27 09:38 | XMS_ITS | Patient Health Record ---
Author Organization [facility] Address [address] [place] [address] Care Team Providers Care Steel Estimator Name Role Phone Елена(inactive) Shon ORO Primary Care Provider U Sotero Nieto Unavailable [phone] Allergies Allergen (clinical drug ingredient) Drug/Non Drug Allergy documented on EMR Reaction Allergy Type Onset Date Status sevoflurane Sevoflurane Unknown Drug Allergy Act alberta protamine sulfate (ALF) Protamine Sulfate Unknown Drug All ergy Active [...] ONCE A DAY Oral for 30 Active [place] 3 Active Warfarin Sodium 5 MG TAKE 1 TABLET BY MO UTH EVERY DAY Oral for 30 Active Joint Health Active Problems Problem Type SNOMED Code ICD Code Onset Dates Problem Status W/U Status Risk Notes Problem 28724143 Blood in stool (K92.1) Active confirmed Problem 313146834 Gastroesophageal reflux disease without esophagitis (K21.9) Active confirmed Problem 595036958 Family history o f colon cancer (Z80.0) Active confirmed Problem 01601506 Rectal bleed (K62.5) Active confirmed Plan Of Treatment Future Test Test Name Order Date COLONOSCOPY 02/18/2012 COLONOSCOPY 06/30/2017 Insurance Providers Payer Name Payer Address Payer Phone Subscriber Number Group Number Insured Name Patient Relationship to Insured Coverage Start Date Coverage End Date [facility] [address] [place] [address] [id number] MUSTAPHA RIVER Self - patient is the [place] [address] [place] [address] [id number] MUSTAPHA RIVER Self - patient is the insured Medical (General) History Medical History History ICD Code Gastroesophageal reflux--neg EGD in 2001 --small HH Hypertension Hyperlipidemia Denies [place],DM,CVA,Lung disease,renal dise ase Afib---had reported successf ul ablation in [place] in 2012--sees Dr. Vicente----he describes some type of adverse reaction to sedation during his ablation procedure and was told to avoid medications including fentanyl negative screening colonosco pies in 2001, 2006, and 04/2012, other than hyperplastic polyps, diverticulosis, and internal hemorrhoids Surgical History Surgery Date(Month/Year) Broken ankle
--- NOTE | 2024-10-27 09:47 | MHC.OFFVISCO ---
Intake Intake Visit Reasons: Anticoagulation Allergies fentanyl (FENTANYL) Allergy (Severe, Verified 10/27/24 09:29) ANAPHYLAXIS hydromorphone (From Dilaudid) Allergy (Severe, Verified 10/27/24 09:29) Hypotension protamine (PROTAMINE) Allergy (Severe, Verified 10/27/24 09:29) ANAPHYLAXIS rocuronium (ROCURONIUM) Allergy (Severe, Verified 10/27/24 09:29) ANAPHYLAXIS sevoflurane (SEVOFLURANE) Allergy (Severe, Verified 10/27/24 09:29) ANAPHYLAXIS terazosin Allergy (Severe, Verified 10/27/24 09:29) Hypotension thiopental (From Pentothal) Allergy (Severe, Verified 10/27/24 09:29) Agitated Medication List - Last Reconciled 10/27/24 by Jeannie Leger RN amiodarone 100 mg PO DAILY ascorbate calcium (vitamin C) 500 mg PO DAILY atorvastatin 80 mg PO DAILY B-complex with vitamin C 1 tab PO DAILY dutasteride 0.5 mg PO DAILY 90 days furosemide 40 mg PO DAILY gabapentin 200 mg (2 x 100 mg) PO BEDTIME glucosamine HCl 500 mg PO BID losartan 50 mg PO DAILY melatonin 10 mg PO BEDTIME PRN metoprolol succinate ER 100 mg PO DAILY multivitamin (Multiple Vitamins tablet) 1 tab PO DAILY pantoprazole 40 mg PO DAILY potassium chloride ER 10 mEq PO DAILY 90 days testosterone 2 pumps topically one pump to each shoulder daily; 28 days testosterone 2 pumps transdermal DAILY 30 days warfarin 5 mg See Protocol PO DAILY zolpidem 10 mg PO BEDTIME PRN Nursing Note INR 3.3 out of therapeutic range Medications and supplements reviewed Patient status: Eating less with heat and more tomatoes, about 8 weeks post prostectomy - doing well Medications or supplements: no change Diet: good Denies any signs and symptoms of bleeding or clotting or unusual bruising Bleeding, bruising, clotting discussed Nutritional guidance given: increase cooked greens when eating more tomatoes Dose: keep same dose 2.5mg Tue Thur Sat / 5mg x 4 days F/U INR Date : 1 month?? Patient verbalizing understanding of instructions given. Anti-Coag Initial Assessment Social Hx Patient Tobacco Use Status: Former Tobacco user Tobacco use type: Cigarette Alcohol intake frequency: does not drink Coding Level of Care Code Est Patient Level 1 Diagnoses Current use of anticoagulant therapy Z79.01 Results AMB INR Fingerstick AMB INR Fingerstick 3.3 Last Edit by Jeannie Leger RN on 10/27/24 09:38 manual entry Assessment & Plan Assessment & Plan (1) Current use of anticoagulant therapy: Code(s): Z79.01 - route supervisor (current) use of anticoagulants Category: Medical
== END 2024-10-27 09:50 | disposition home or self-care (01) ==
LOC: HO.ACS 09:15
PROVIDERS: PCP Internal Medicine; Visit Provider Internal Medicine Medical Oncology
DX: Z79.01 Long term (current) use of anticoagulants (principal)

== ENCOUNTER → 2024-10-27 09:15 | Outpatient (BNVA) | payer MEDICARE, SELFPAY | PROVIDERS: PCP Internal Medicine; Visit Provider Internal Medicine Medical Oncology | DX: Z79.01 Long term (current) use of anticoagulants (principal) | CPT/HCPCS: 85610; 99211 ==

== ENCOUNTER 2024-11-24 09:22 | Outpatient (AMB) | payer MEDICARE, SELFPAY ==
--- NOTE | 2024-11-24 09:30 | MHC.OFFVISCO ---
Intake Intake Visit Reasons: Anticoagulation Allergies fentanyl (FENTANYL) Allergy (Severe, Verified 11/24/24 09:25) ANAPHYLAXIS hydromorphone (From Dilaudid) Allergy (Severe, Verified 11/24/24 09:25) Hypotension protamine (PROTAMINE) Allergy (Severe, Verified 11/24/24 09:25) ANAPHYLAXIS rocuronium (ROCURONIUM) Allergy (Severe, Verified 11/24/24 09:25) ANAPHYLAXIS sevoflurane (SEVOFLURANE) Allergy (Severe, Verified 11/24/24 09:25) ANAPHYLAXIS terazosin Allergy (Severe, Verified 11/24/24 09:25) Hypotension thiopental (From Pentothal) Allergy (Severe, Verified 11/24/24 09:25) Agitated Medication List - Last Reconciled 11/24/24 by Courtney Dunn RN amiodarone 100 mg PO DAILY ascorbate calcium (vitamin C) 500 mg PO DAILY atorvastatin 80 mg PO DAILY B-complex with vitamin C 1 tab PO DAILY dutasteride 0.5 mg PO DAILY 90 days furosemide 40 mg PO DAILY gabapentin 200 mg (2 x 100 mg) PO BEDTIME glucosamine HCl 500 mg PO BID losartan 50 mg PO DAILY melatonin 10 mg PO BEDTIME PRN metoprolol succinate ER 100 mg PO DAILY multivitamin (Multiple Vitamins tablet) 1 tab PO DAILY pantoprazole 40 mg PO DAILY potassium chloride ER 10 mEq PO DAILY 90 days testosterone 2 pumps topically one pump to each shoulder daily; 28 days testosterone 2 pumps transdermal DAILY 30 days warfarin 5 mg See Protocol PO DAILY zolpidem 10 mg PO BEDTIME PRN Nursing Note INR: 2.1- in therapeutic range 2-3 Medications and supplements reviewed- pt was on paxlovid last week pt stopped amiodarone while on paxlovid for 5 days. restarted amiodarone thursday11/21/24 No changes in health, diet, medications, or supplements, Denies any signs and symptoms of bleeding or bruising or clotting. Bleeding, bruising, clotting discussed Nutritional guidance given Dose: cont 2.5mg x 3, 5mg x 4 F/U INR: 1 week Patient verbalizes understanding of instructions given pt states hospitalized with covid last week. he states he tested positive but was asymptomatic, then tested neg Anti-Coag Initial Assessment Social Hx Patient Tobacco Use Status: Former Tobacco user Tobacco use type: Cigarette Alcohol intake frequency: does not drink Coding Level of Care Code Est Patient Level 1 Diagnoses Current use of anticoagulant therapy Z79.01 Assessment & Plan Assessment & Plan (1) Current use of anticoagulant therapy: Code(s): Z79.01 - jail (current) use of anticoagulants Category: Medical
[2024-11-24 09:31] LABS: Prothrombin Time Whole Bld POC 25.4 sec (11.1-13.5); ~PT, ~INR - Anti Coag Clinic 2.1 (0.9-1.1)
--- OUTSIDE RECORDS SUMMARY | 2024-11-24 10:05 | XMS_ITS | Clinical Summary ---
Author Organization [facility] Address [address] [place] [address] Phone Care Team Providers Care Photography Assistant Name Role Phone Phil Mccullough MD Primary [...] - 1-dose 75+ series) 09/10/2018 COVID-19 VACCINE ( - 2024-25 season) 2023 06/02/2020, 04/30/2020 INFLUENZA VACCINE (#1) 2024 9, 12/29/2018, 01/05/2018, Additional history exists PNEUMOCOCCAL VACCINES (50+ years) Completed 12/29/2018, 01/09/2017 [...] Medical Devices Not on file Care Teams Photography Assistant Relationship Specialty Start Date End Date Phil Mccullough MD PCP - General 07/27/14 Additional Source Comments The information contained in this document represents components of the legal health record. It is not the complete legal health record.[facility]
--- OUTSIDE RECORDS SUMMARY | 2024-11-24 10:05 | XMS_ITS | Patient Health Record ---
Author Organization [facility] Address [address] [place] [address] Care Team Providers Care Explosive Operator Grenade Name Role Phone Елена(inactive) Shon ORO Primary Care Provider U Sotero Nieto Unavailable [phone] Allergies Allergen (clinical drug ingredient) Drug/Non Drug Allergy documented on EMR Reaction Allergy Type Onset Date Status sevoflurane Sevoflurane Unknown Drug Allergy Act alberta protamine sulfate ([facility]) Protamine Sulfate Unknown Drug All ergy Active [...] ONCE A DAY Oral for 30 Active [place] 3 Active Warfarin Sodium 5 MG TAKE 1 TABLET BY MO UTH EVERY DAY Oral for 30 Active Joint Health Active Problems Problem Type SNOMED Code ICD Code Onset Dates Problem Status W/U Status Risk Notes Problem 42376466 Blood in stool (K92.1) Active confirmed Problem 929574784 Gastroesophageal reflux disease without esophagitis (K21.9) Active confirmed Problem 089525400 Family history o f colon cancer (Z80.0) Active confirmed Problem 07219831 Rectal bleed (K62.5) Active confirmed Plan Of Treatment Future Test Test Name Order Date COLONOSCOPY 02/18/2012 COLONOSCOPY 06/30/2017 Insurance Providers Payer Name Payer Address Payer Phone Subscriber Number Group Number Insured Name Patient Relationship to Insured Coverage Start Date Coverage End Date [facility] [address] [address] [place] [phone] [id number] MUSTAPHA RIVER Self - patient is the [place] [address] [place] [address] [id number] MUSTAPHA RIVER Self - patient is the insured Medical (General) History Medical History History ICD Code Gastroesophageal reflux--neg EGD in 2001 --small HH Hypertension Hyperlipidemia Denies AR,DM,CVA,Lung disease,renal dise ase Afib---had reported successf ul ablation in [place] in 2012--sees Dr. Vicente----he describes some type of adverse reaction to sedation during his ablation procedure and was told to avoid medications including fentanyl negative screening colonosco pies in 2001, 2006, and 04/2012, other than hyperplastic polyps, diverticulosis, and internal hemorrhoids Surgical History Surgery Date(Month/Year) Broken ankle
== END 2024-11-24 09:40 | disposition home or self-care (01) ==
LOC: HO.ACS 09:22
PROVIDERS: PCP Internal Medicine; Visit Provider Internal Medicine Medical Oncology
DX: Z79.01 Long term (current) use of anticoagulants (principal)

== ENCOUNTER → 2024-11-24 09:22 | Outpatient (BNVA) | payer MEDICARE, SELFPAY | PROVIDERS: PCP Internal Medicine; Visit Provider Internal Medicine Medical Oncology | DX: I48.20 Chronic atrial fibrillation, unspecified (principal); Z79.01 Long term (current) use of anticoagulants; Z51.81 Encounter for therapeutic drug level monitoring | CPT/HCPCS: 85610; 99211 ==

== ENCOUNTER 2024-12-01 09:33 | Outpatient (AMB) | payer MEDICARE, SELFPAY ==
[2024-12-01 09:41] LABS: Prothrombin Time Whole Bld POC 19.8 sec (11.1-13.5); ~PT, ~INR - Anti Coag Clinic 1.7 (0.9-1.1)
--- NOTE | 2024-12-01 09:45 | MHC.OFFVISCO ---
Intake Intake Visit Reasons: Anticoagulation Allergies fentanyl (FENTANYL) Allergy (Severe, Verified 12/01/24 09:33) ANAPHYLAXIS hydromorphone (From Dilaudid) Allergy (Severe, Verified 12/01/24 09:33) Hypotension protamine (PROTAMINE) Allergy (Severe, Verified 12/01/24 09:33) ANAPHYLAXIS rocuronium (ROCURONIUM) Allergy (Severe, Verified 12/01/24 09:33) ANAPHYLAXIS sevoflurane (SEVOFLURANE) Allergy (Severe, Verified 12/01/24 09:33) ANAPHYLAXIS terazosin Allergy (Severe, Verified 12/01/24 09:33) Hypotension thiopental (From Pentothal) Allergy (Severe, Verified 12/01/24 09:33) Agitated Medication List - Last Reconciled 12/01/24 by Jane Stafford RN amiodarone 100 mg PO DAILY ascorbate calcium (vitamin C) 500 mg PO DAILY atorvastatin 80 mg PO DAILY B-complex with vitamin C 1 tab PO DAILY dutasteride 0.5 mg PO DAILY 90 days furosemide 40 mg PO DAILY gabapentin 200 mg (2 x 100 mg) PO BEDTIME glucosamine HCl 500 mg PO BID losartan 50 mg PO DAILY melatonin 10 mg PO BEDTIME PRN metoprolol succinate ER 100 mg PO DAILY multivitamin (Multiple Vitamins tablet) 1 tab PO DAILY pantoprazole 40 mg PO DAILY potassium chloride ER 10 mEq PO DAILY 90 days testosterone 2 pumps topically one pump to each shoulder daily; 28 days testosterone 2 pumps transdermal DAILY 30 days warfarin 5 mg See Protocol PO DAILY zolpidem 10 mg PO BEDTIME PRN Nursing Note INR: 1.7 out of therapeutic range 2-3 (see previous note) Medications and supplements reviewed Patient status: feels well Medications or supplements: no changes Diet: no changes Denies any signs and symptoms of bleeding or clotting or unusual bruising Bleeding, bruising, clotting discussed Nutritional guidance given: no greens X2 days Dose: increase today's dose to 5mg (2.5mg) then 5mg X 4 days and 2.5mg X 3 days F/U INR Date: 2 weeks?? Patient verbalizing understanding of instructions given. Anti-Coag Initial Assessment Social Hx Patient Tobacco Use Status: Former Tobacco user Tobacco use type: Cigarette Alcohol intake frequency: does not drink Coding Level of Care Code Est Patient Level 1 Diagnoses Current use of anticoagulant therapy Z79.01 Results AMB INR Fingerstick AMB INR Fingerstick 1.7 Last Edit by Jane Stafford RN on 12/01/24 09:41 interface delay Assessment & Plan Assessment & Plan (1) Current use of anticoagulant therapy: Code(s): Z79.01 - intermodal customer service (current) use of anticoagulants Category: Medical
--- OUTSIDE RECORDS SUMMARY | 2024-12-01 11:08 | XMS_ITS | Patient Health Record ---
Author Organization [facility] Address [address] [place] [address] Care Team Providers Care Chyron Operator Name Role Phone Елена(inactive) Shon ORO Primary Care Provider U Sotero Nieto Unavailable [phone] Allergies Allergen (clinical drug ingredient) Drug/Non Drug Allergy documented on EMR Reaction Allergy Type Onset Date Status sevoflurane Sevoflurane Unknown Drug Allergy Act alberta protamine sulfate ([facility]) Protamine Sulfate Unknown Drug All ergy Active [...] ONCE A DAY Oral for 30 Active [place] 3 Active Warfarin Sodium 5 MG TAKE 1 TABLET BY MO UTH EVERY DAY Oral for 30 Active Joint Health Active Problems Problem Type SNOMED Code ICD Code Onset Dates Problem Status W/U Status Risk Notes Problem 08466719 Blood in stool (K92.1) Active confirmed Problem 818704831 Gastroesophageal reflux disease without esophagitis (K21.9) Active confirmed Problem 894760828 Family history o f colon cancer (Z80.0) Active confirmed Problem 90668364 Rectal bleed (K62.5) Active confirmed Plan Of Treatment Future Test Test Name Order Date COLONOSCOPY 02/18/2012 COLONOSCOPY 06/30/2017 Insurance Providers Payer Name Payer Address Payer Phone Subscriber Number Group Number Insured Name Patient Relationship to Insured Coverage Start Date Coverage End Date [facility] [address] [place] [address] [id number] MUSTAPHA RIVER Self - patient is the [place] [address] [place] [address] [id number] MUSTAPHA RIVER Self - patient is the insured Medical (General) History Medical History History ICD Code Gastroesophageal reflux--neg EGD in 2001 --small HH Hypertension Hyperlipidemia Denies [place],DM,CVA,Lung disease,renal dise ase Afib---had reported successf ul ablation in [place] in 2012--sees Dr. Vicente----he describes some type of adverse reaction to sedation during his ablation procedure and was told to avoid medications including fentanyl negative screening colonosco pies in 2001, 2006, and 04/2012, other than hyperplastic polyps, diverticulosis, and internal hemorrhoids Surgical History Surgery Date(Month/Year) Broken ankle
--- OUTSIDE RECORDS SUMMARY | 2024-12-01 11:08 | XMS_ITS | Clinical Summary ---
Author Organization [facility] Address [address] [place] [address] Phone Care Team Providers Care Motor Racer Name Role Phone Phil Mccullough MD Primary [...] Medical Devices Not on file Care Teams Motor Racer Relationship Specialty Start Date End Date Phil Mccullough MD PCP - General 07/27/14 Additional Source Comments The information contained in this document represents components of the legal health record. It is not the complete legal health record.[facility]
== END 2024-12-01 09:56 | disposition home or self-care (01) ==
LOC: HO.ACS 09:33
PROVIDERS: PCP Family Medicine; Visit Provider Internal Medicine Medical Oncology
DX: Z79.01 Long term (current) use of anticoagulants (principal)

== ENCOUNTER → 2024-12-01 09:33 | Outpatient (BNVA) | payer MEDICARE, SELFPAY | PROVIDERS: PCP Family Medicine; Visit Provider Internal Medicine Medical Oncology | DX: I48.20 Chronic atrial fibrillation, unspecified (principal); Z79.01 Long term (current) use of anticoagulants; Z51.81 Encounter for therapeutic drug level monitoring | CPT/HCPCS: 85610; 99211 ==

== ENCOUNTER 2024-12-15 09:08 | Outpatient (AMB) | payer MEDICARE, SELFPAY ==
[2024-12-15 09:31] LABS: Prothrombin Time Whole Bld POC 43.8 sec (11.1-13.5); ~PT, ~INR - Anti Coag Clinic 3.7 (0.9-1.1)
--- NOTE | 2024-12-15 09:38 | MHC.OFFVISCO ---
Intake Intake Visit Reasons: Anticoagulation Allergies fentanyl (FENTANYL) Allergy (Severe, Verified 12/15/24 09:24) ANAPHYLAXIS hydromorphone (From Dilaudid) Allergy (Severe, Verified 12/15/24 09:24) Hypotension protamine (PROTAMINE) Allergy (Severe, Verified 12/15/24 09:24) ANAPHYLAXIS rocuronium (ROCURONIUM) Allergy (Severe, Verified 12/15/24 09:24) ANAPHYLAXIS sevoflurane (SEVOFLURANE) Allergy (Severe, Verified 12/15/24 09:24) ANAPHYLAXIS terazosin Allergy (Severe, Verified 12/15/24 09:24) Hypotension thiopental (From Pentothal) Allergy (Severe, Verified 12/15/24 09:24) Agitated Medication List - Last Reconciled 12/15/24 by Jeannie Leger RN amiodarone 100 mg PO DAILY ascorbate calcium (vitamin C) 500 mg PO DAILY atorvastatin 80 mg PO DAILY B-complex with vitamin C 1 tab PO DAILY dutasteride 0.5 mg PO DAILY 90 days furosemide 40 mg PO DAILY gabapentin 200 mg (2 x 100 mg) PO BEDTIME glucosamine HCl 500 mg PO BID losartan 50 mg PO DAILY melatonin 10 mg PO BEDTIME PRN metoprolol succinate ER 100 mg PO DAILY multivitamin (Multiple Vitamins tablet) 1 tab PO DAILY pantoprazole 40 mg PO DAILY potassium chloride ER 10 mEq PO DAILY 90 days testosterone 2 pumps topically one pump to each shoulder daily; 28 days testosterone 2 pumps transdermal DAILY 30 days warfarin 5 mg See Protocol PO DAILY zolpidem 10 mg PO BEDTIME PRN Nursing Note INR 3.7 out of therapeutic range- PREVIOSU INR WAS LOW AFTER TX PROPHYLACTICALLY WITH PAXLOVID - WARFARIN DOSE WAS INCREASED X1 DAY - then ate foods to help raise the INR Medications and supplements reviewed Patient status: doing well, states he never had covid but his did and still recovering from it, he has been eating a lot of tomatotes from his garden Medications or supplements: no changes Diet: good appetite Denies any signs and symptoms of bleeding or clotting or unusual bruising Bleeding, bruising, clotting discussed Nutritional guidance given: increase greens when eating more tomatoes Dose: hold today's dose because he has more tomatoes to eat F/U INR Date: 2 weeks to make sure INR resumes to stable ?? Patient verbalizing understanding of instructions given. 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
--- OUTSIDE RECORDS SUMMARY | 2024-12-15 10:02 | XMS_ITS | Patient Health Record ---
Author Organization [facility] Address [address] [place] [address] Care Team Providers Care Vamp Maker Name Role Phone Елена(inactive) Shon ORO Primary Care Provider U Sotero Nieto Unavailable [phone] Allergies Allergen (clinical drug ingredient) Drug/Non Drug Allergy documented on EMR Reaction Allergy Type Onset Date Status sevoflurane Sevoflurane Unknown Drug Allergy Act alberta protamine sulfate (RETIREMENT) Protamine Sulfate Unknown Drug All ergy Active [...] ONCE A DAY Oral for 30 Active [place] 3 Active Warfarin Sodium 5 MG TAKE 1 TABLET BY MO UTH EVERY DAY Oral for 30 Active Joint Health Active Problems Problem Type SNOMED Code ICD Code Onset Dates Problem Status W/U Status Risk Notes Problem 81870135 Blood in stool (K92.1) Active confirmed Problem 341494386 Gastroesophageal reflux disease without esophagitis (K21.9) Active confirmed Problem 148979566 Family history o f colon cancer (Z80.0) Active confirmed Problem 60562797 Rectal bleed (K62.5) Active confirmed Plan Of Treatment Future Test Test Name Order Date COLONOSCOPY 02/18/2012 COLONOSCOPY 06/30/2017 Insurance Providers Payer Name Payer Address Payer Phone Subscriber Number Group Number Insured Name Patient Relationship to Insured Coverage Start Date Coverage End Date [facility] [address] [place] [address] [id number] MUSTAPHA RIVER Self - patient is the [place] [address] [place] [address] [id number] MUSTAPHA RIVER Self - patient is the insured Medical (General) History Medical History History ICD Code Gastroesophageal reflux--neg EGD in 2001 --small HH Hypertension Hyperlipidemia Denies [place],DM,CVA,Lung disease,renal dise ase Afib---had reported successf ul ablation in [place] in 2012--sees Dr. Vicente----he describes some type of adverse reaction to sedation during his ablation procedure and was told to avoid medications including fentanyl negative screening colonosco pies in 2001, 2006, and 04/2012, other than hyperplastic polyps, diverticulosis, and internal hemorrhoids Surgical History Surgery Date(Month/Year) Broken ankle
--- OUTSIDE RECORDS SUMMARY | 2024-12-15 10:02 | XMS_ITS | Clinical Summary ---
Author Organization [facility] Address [address] [place] [address] Phone Care Team Providers Care Medical Esthetician Name Role Phone Phil Mccullough MD Primary [...] VACCINE (1 - 1-dose 75+ series) 09/10/2018 INFLUENZA VACCINE (#1) 2024 9, 12/29/2018, 01/05/2018, Additional history exists COVID-19 VACCINE ( season) 2024 06/02/2020, 04/30/2020 PNEUMOCOCCAL VACCINES (50+ years) Completed [...] Medical Devices Not on file Care Teams Medical Esthetician Relationship Specialty Start Date End Date Phil Mccullough MD PCP - General 07/27/14 Additional Source Comments The information contained in this document represents components of the legal health record. It is not the complete legal health record.[facility]
== END 2024-12-15 09:42 | disposition home or self-care (01) ==
LOC: HO.ACS 09:08
PROVIDERS: PCP Family Medicine; Visit Provider Internal Medicine Medical Oncology
DX: Z79.01 Long term (current) use of anticoagulants (principal)

== ENCOUNTER → 2024-12-15 09:08 | Outpatient (BNVA) | payer MEDICARE, SELFPAY | PROVIDERS: PCP Family Medicine; Visit Provider Internal Medicine Medical Oncology | DX: I48.20 Chronic atrial fibrillation, unspecified (principal); Z79.01 Long term (current) use of anticoagulants; Z51.81 Encounter for therapeutic drug level monitoring | CPT/HCPCS: 85610; 99211 ==

== ENCOUNTER 2025-01-03 09:43 | Outpatient (REF) | payer MEDICARE, SELFPAY ==
--- NOTE | ~2025-01-03 | XR_ITS ---
EXAMINATION: XR CHEST 2 VIEWS HISTORY: I48.0 - Paroxysmal atrial fibrillation COMPARISON: Comparison is made with the prior examination dated 01/05/2024. FINDINGS: PA and lateral views of the chest are submitted. The lungs are expanded and clear. There is no pleural effusion, pneumothorax, or pulmonary vascular congestion. The heart is normal in size. The aorta is calcified. There is degenerative disc disease of the spine. XR/XR chest 2V IMPRESSION: No acute cardiopulmonary abnormality. Electronically signed by: Sotero Olmos MD 01/03/2025 10:39 AM EDT
[2025-01-03 11:26] LABS: NRBC Abs Auto 0.000 X10*3/uL (0.0-0.012); NRBC Pct Auto 0.0 /100WBC (0.0-0.2); PLT CLUMP 1
[2025-01-03 11:27] LABS: Hematocrit 46.6 % (42.0-52.0); Hemoglobin 15.7 g/dl (14.0-18.0); Mean Corpuscular HGB Conc 33.7 g/dl (31.0-36.0); Mean Corpuscular Hemoglobin 31.6 pg (27.0-33.0); Mean Corpuscular Volume 93.8 fL (80.0-98.0); Red Blood Count 4.97 X10*6/uL (4.60-5.80)
[2025-01-03 11:29] LABS: Platelet Count 125 X10*3/uL (160-400); White Blood Count 9.1 X10*3/uL (4.8-10.8)
[2025-01-03 11:58] LABS: Alanine Aminotransferase 34 U/L (0-40); Albumin Level 4.1 g/dL (3.5-5.0); Alkaline Phosphatase 33 U/L (39-117); Anion Gap 10 (12-20); Aspartate Amino Transferase 33 U/L (5-37); Blood Urea Nitrogen 10 mg/dL (9-16); Calcium 9.1 mg/dL (8.4-10.2); Carbon Dioxide 29 mmol/L (22-29); Chloride 106 mmol/L (96-108); Estimated Glomerular Filt Rate > 60; Potassium 4.3 mmol/L (3.3-5.1); Sodium 141 mmol/L (135-145); Total Protein 6.5 g/dL (6.5-8.0)
== END 2025-01-03 09:44 | disposition home or self-care (01) ==
LOC: HO.XRAY 09:43
PROVIDERS: PCP Family Medicine; Visit Provider Internal Medicine Cardiovascular Disease
DX: I48.0 Paroxysmal atrial fibrillation (principal); I11.0 Hypertensive heart disease with heart failure; I50.30 Unspecified diastolic (congestive) heart failure; Z79.899 Other long term (current) drug therapy; Z87.891 Personal history of nicotine dependence; Z79.01 Long term (current) use of anticoagulants
CPT/HCPCS: 36415; 71046; 80048; 80076; 84443; 85027; 93005; 99212

== ENCOUNTER 2025-01-03 09:43 | Outpatient (AMB) | payer MEDICARE, SELFPAY ==
--- NOTE | 2025-01-03 09:45 | MHC.OFFVIS ---
Vital Signs 01/03/25 09:46 Height 5 ft 8 in Weight 226 lb 3.108 oz BMI 34.4 BP 126/70 Blood Pressure Location Lt brachial Position Sitting Pulse 59 Pulse Source Monitor Intake Visit Reasons: 1 yr f/up w/ ekg Intake Note: 1 year f/u w/ ekg Accompanied by: Self / Same As Patient Allergies fentanyl (FENTANYL) Allergy (Severe, Verified 01/03/25 09:48) ANAPHYLAXIS hydromorphone (From Dilaudid) Allergy (Severe, Verified 01/03/25 09:48) Hypotension protamine (PROTAMINE) Allergy (Severe, Verified 01/03/25 09:48) ANAPHYLAXIS rocuronium (ROCURONIUM) Allergy (Severe, Verified 01/03/25 09:48) ANAPHYLAXIS sevoflurane (SEVOFLURANE) Allergy (Severe, Verified 01/03/25 09:48) ANAPHYLAXIS terazosin Allergy (Severe, Verified 01/03/25 09:48) Hypotension thiopental (From Pentothal) Allergy (Severe, Verified 01/03/25 09:48) Agitated Medication List - Last Reconciled 01/03/25 by Jose De Jesus Vicente MD amiodarone 100 mg PO DAILY ascorbate calcium (vitamin C) 500 mg PO DAILY atorvastatin 80 mg PO DAILY B-complex with vitamin C 1 tab PO DAILY dutasteride 0.5 mg PO DAILY 90 days furosemide 40 mg PO DAILY gabapentin 200 mg (2 x 100 mg) PO BEDTIME glucosamine HCl 500 mg PO BID losartan 50 mg PO DAILY melatonin 10 mg PO BEDTIME PRN metoprolol succinate ER 100 mg PO DAILY multivitamin (Multiple Vitamins tablet) 1 tab PO DAILY pantoprazole 40 mg PO DAILY potassium chloride ER 10 mEq PO DAILY 90 days testosterone 2 pumps topically one pump to each shoulder daily; 28 days testosterone 2 pumps transdermal DAILY 30 days warfarin 5 mg See Protocol PO DAILY zolpidem 10 mg PO BEDTIME PRN HPI Comments Details: aJnak comes for follow-up. He said he has been doing well. 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 Denied any symptoms with exertion. No worsening shortness of breath. No orthopnea, PND, leg edema. No prolonged palpitation irregular heartbeat. No bleeding issues or neurologic events. No lightheadedness, syncope. No exertional chest pain. Takes all his medications. [facility] Medical History Prediabetes (HFpEF) heart failure with preserved ejection fraction Paroxysmal atrial fibrillation HTN (hypertension) History of cardioversion Benign prostatic hyperplasia with post-void dribbling Hypogonadism in male Surgical History History of penile implant History of cardiac radiofrequency ablation (RFA) (~2015) Hx of endoscopy Hx of colonoscopy (~09/30/17) Family History Father No problems noted. Mother CVD (cardiovascular disease) Heart murmur Social History Household Members: Spouse Housing: House Are you a primary home care giver to a significant other at home: No Do you presently have visiting nurse or other home services: No 75 years or older and lives alone: No Patient Tobacco Use Status: Former Tobacco user Tobacco use type: Cigarette e-Cigarette/Vaping Use: Never Used service: No Current occupational status: retired Current occupation: [employer]t handed Cognitive needs: No Hearing needs: No Vision needs: No Review of Systems Const Denies daytime sleepiness, Denies difficulty sleeping, Denies snoring, Denies stops breathing during sleep and Denies weakness Card Denies chest pain, Denies rapid heart rate, Denies irregular heart rhythm, Denies claudication, Denies leg edema, Denies lightheadedness, Denies palpitations, Denies dyspnea, Denies dyspnea on exertion, Denies orthopnea, Denies paroxysmal nocturnal dyspnea and Denies slow heart rate Resp Denies cough, Denies dyspnea, Denies dyspnea on exertion and Denies snoring GI Reports no additional complaints, Denies hematochezia, Denies change in stool character and Denies dyspepsia Musc Denies abnormal gait, Denies muscle weakness and Denies numbness Neuro Denies abnormal gait, Denies numbness and Denies weakness Endo Denies palpitations Physical Exam Vital Signs: Last Vital Signs Pulse 59 01/03/25 09:46 BP 126/70 01/03/25 09:46 BMI result Body Mass Index 34.4 Const General: cooperative, comfortable, no acute distress, alert and awake Nutritional Appearance: overweight Orientation/consciousness: patient oriented x3 Limitations: no limitations Neck Neck: Yes trachea midline, Yes supple and Yes no JVD Resp Effort & Inspection: normal respiratory effort Auscultation: clear to auscultation bilaterally Cardio Jugular venous distension: no JVD Palpation: normal PMI Rate: regular rate Rhythm: regular rhythm Heart sounds: S1 normal heart sound present, S2 normal heart sound present and Other heart sounds present ( S4 present) GI Auscultation: normal bowel sounds Skin General skin exam: no rashes or lesions noted Neuro General: patient oriented x3 and no focal motor deficits Extrem General: Yes no clubbing, cyanosis or edema Psych Appearance: grossly normal Office Procedures EKG Details: EKGs shows normal sinus rhythm with sinus arrhythmias with first-degree AV block with LVH with Q-waves in lead 3 most likely pseudo infarct pattern [id number], Complete Assessment & Plan Assessment & Plan (1) Paroxysmal atrial fibrillation: Code(s): I48.0 - Paroxysmal atrial fibrillation Category: Medical Plan: Paroxysmal atrial fibrillation has done extremely well with rhythm control approach much improved symptoms and quality of life. No hospitalization related to cardiac issues in the last many years. Continue rhythm control approach. Continue low-dose amiodarone. Will check for amiodarone toxicity with chest x-ray and blood work. Continue full oral anticoagulation, currently on warfarin. Being followed by [facility]. Maintain target INR between 2 and 3. Avoidance of stimulants was discussed including alcohol. (2) (HFpEF) heart failure with preserved ejection fraction: Code(s): I50.30 - Unspecified diastolic (congestive) heart failure Category: Medical Plan: Heart failure preserved ejection fraction, clinically euvolemic and well compensated. Continue rhythm control approach which has helped him the most. Continue low-dose diuretic therapy. Daily weight monitoring avoidance salt loading was discussed advised to call me with worsening symptoms. Additional diuretics as need be. Continue aggressive blood pressure control. Advised to maintain activity level. Follow up in the clinic in 6 months after an echocardiogram. Thank you for allowing me to partake in his care Orders: Orders Complete Blood Count no Diff Today I48.0 - Paroxysmal atrial fibrillation Basic Metabolic Panel Today I48.0 - Paroxysmal atrial fibrillation XR chest 2V Today I48.0 - Paroxysmal atrial fibrillation CA echo transthoracic complete 6 Months I50.30 - Unspecified diastolic (congestive) heart failure Liver Panel Today I48.0 - Paroxysmal atrial fibrillation TSH reflex Free T4 Today I48.0 - Paroxysmal atrial fibrillation Coding Level of Care Code Est Pt Level 4 (98912) Complex EM visit Add On G2211 Diagnoses Paroxysmal atrial fibrillation I48.0 (HFpEF) heart failure with preserved ejection fraction I50.30 CPT Codes EKG - CPT: 85465-[id number], Complete ([id number])
[2025-01-03 09:46] VITALS: BP 126/70; PULSE 59; BMI 34.4
--- OUTSIDE RECORDS SUMMARY | 2025-01-03 10:51 | XMS_ITS | Patient Health Record ---
Author Organization [facility] Address [address] [place] [address] Care Team Providers Care Soldering Machine Feeder Name Role Phone Елена(inactive) Shon ORO Primary Care Provider U Sotero Nieto Unavailable [phone] Allergies Allergen (clinical drug ingredient) Drug/Non Drug Allergy documented on EMR Reaction Allergy Type Onset Date Status sevoflurane Sevoflurane Unknown Drug Allergy Act alberta protamine sulfate (SHELTER) Protamine Sulfate Unknown Drug All ergy Active Reason For Referral No Information Medications Medication SIG (Take, Route, Frequency, Duration) Notes Start Date End Date Status Vitamin C Active Amiodarone HCl 100 MG TAKE 1 TABLET BY M OUTH ONCE A DAY Oral; Duration: 30 Active Colace Active Losartan Potassium 50 MG TAKE 1 TABLET E DAY Oral; Duration: 30 Active Garlic Oil Active Atorvastatin Calcium 80 MG TAKE 1 TABLET BY MOUTH EVERY DAY Oral; Duration: 30 Active Klor-Con 10 10 MEQ TAKE 1 TABLET BY AMRGRET TH ONCE A DAY Oral; Duration: 30 Active Pantoprazole Sodium 40 MG TAKE 1 TABLET BY MOUTH ONCE A DAY Oral; Duration: 30 Active Furosemide 40 MG TAKE 2 TABLETS BY MO UTH ONCE A DAY Oral; Duration: 30 Active AndroGel Pump 20.25 MG/ACT (1.62%) 1 application to skin to affected area in the morning Transdermal Once a day Active Acetaminophen Active Ambien 10 MG 1 tablet at bedtime as needed Orally Once a day Active Glucosamine Chondr Complex Active Metoprolol Succinate ER 100 MG TAKE 1 TABLET BY MOUTH ONCE A DAY Oral; Duration: 30 Active [place] 3 Active Warfarin Sodium 5 MG TAKE 1 TABLET BY MO UTH EVERY DAY Oral; Duration: 30 Active Joint Health Active Problems Problem Type SNOMED Code ICD Code Onset Dates Problem Status W/U Status Risk Notes Problem Blood in stool (884422114) Blood in stool (K92.1) Active confirmed Problem Gastroesophageal reflux disease without esophagitis (605950780) Gastroesophageal reflux disease without esophagitis (K21.9) Active confirmed Problem Family History of Cancer of Colon (Situation) (542234497) Family history of colon cancer (Z80.0) Active confirmed Problem Hemorrhage of rectum and anus (082813985) Rectal bleed (K62.5) Active confirmed Plan Of Treatment Future Test Test Name Order Date COLONOSCOPY 02/18/2012 COLONOSCOPY 06/30/2017 Insurance Providers Payer Name Payer Address Payer Phone Subscriber Number Group Number Insured Name Patient Relationship to Insured Coverage Start Date Coverage End Date [facility] [address] [place] [address] [id number] MUSTAPHA RIVER Self - patient is the [place] of [place] [address] [place] [address] [id number] [place]HA RIVER Self - patient is the insured Medical (General) History Medical History History ICD Code Gastroesophageal reflux--neg EGD in 2001 --small HH Hypertension Hyperlipidemia Denies [place],DM,CVA,Lung disease,renal dise ase Afib---had reported successf ul ablation in [place] in 2012--sees Dr. Vicente----he describes some type of adverse reaction to sedation during his ablation procedure and was told to avoid medications including fentanyl negative screening colonosco pies in 2001, 2006, and 04/2012, other than hyperplastic polyps, diverticulosis, and internal hemorrhoids Surgical History Surgery Date(Month/Year) Broken ankle
--- OUTSIDE RECORDS SUMMARY | 2025-01-03 10:51 | XMS_ITS | Clinical Summary ---
Author Organization [facility] Address [address] [place] [address] Phone Care Team Providers Care Milk Condenser Name Role Phone Phil Mccullough MD Primary [...] Medical Devices Not on file Care Teams Milk Condenser Relationship Specialty Start Date End Date Phil Mccullough MD PCP - General 07/27/14 Additional Source Comments The information contained in this document represents components of the legal health record. It is not the complete legal health record.[facility]
== END 2025-01-03 10:03 | disposition home or self-care (01) ==
LOC: HO.HCS 09:44
PROVIDERS: PCP Internal Medicine; Visit Provider Internal Medicine Cardiovascular Disease
DX: I48.0 Paroxysmal atrial fibrillation (principal); I50.30 Unspecified diastolic (congestive) heart failure
CPT/HCPCS: 93010; 99214; G2211

== ENCOUNTER → 2025-01-03 10:12 | Outpatient (BNV) | payer MEDICARE, SELFPAY | PROVIDERS: PCP Family Medicine; Visit Provider Radiology Diagnostic Radiology | DX: I48.0 Paroxysmal atrial fibrillation (principal) | CPT/HCPCS: 71046 ==

== ENCOUNTER 2025-01-04 08:53 | Outpatient (AMB) | payer MEDICARE, SELFPAY ==
--- NOTE | 2025-01-04 09:05 | MHC.OFFVISCO ---
Intake Intake Visit Reasons: Anticoagulation Allergies fentanyl (FENTANYL) Allergy (Severe, Verified 01/04/25 08:53) ANAPHYLAXIS hydromorphone (From Dilaudid) Allergy (Severe, Verified 01/04/25 08:53) Hypotension protamine (PROTAMINE) Allergy (Severe, Verified 01/04/25 08:53) ANAPHYLAXIS rocuronium (ROCURONIUM) Allergy (Severe, Verified 01/04/25 08:53) ANAPHYLAXIS sevoflurane (SEVOFLURANE) Allergy (Severe, Verified 01/04/25 08:53) ANAPHYLAXIS terazosin Allergy (Severe, Verified 01/04/25 08:53) Hypotension thiopental (From Pentothal) Allergy (Severe, Verified 01/04/25 08:53) Agitated Nursing Note PT.HAD DERM.PROCEDURE (L) NECK ON 01/02. NO ANTIBIOTICS WERE ORDERED, AND DSG.APPEARS DRY. NO CP,SOB OR SX OF BLEEDING. HOLD WARFARIN TODAY THEN RESUME USUAL DOSING AND FOLLOW-UP IN 2 WEEKS GOOD UNDERSTANDING OF DOSING INSTR. 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
[2025-01-04 09:09] LABS: Prothrombin Time Whole Bld POC 48.8 sec (11.1-13.5); ~PT, ~INR - Anti Coag Clinic 4.1 (0.9-1.1)
--- OUTSIDE RECORDS SUMMARY | 2025-01-04 09:28 | XMS_ITS | Patient Health Record ---
Author Organization [facility] Address [address] [place] [address] Care Team Providers Care Implementation Specialist Payroll Name Role Phone Елена(inactive) Shon ORO Primary Care Provider U Sotero Nieto Unavailable [phone] Allergies Allergen (clinical drug ingredient) Drug/Non Drug [...] TABLET BY MARGRET TH ONCE A DAY Oral; Duration: 30 [...] ONCE A DAY Oral; Duration: 30 Active [place] 3 Active Warfarin Sodium 5 MG TAKE 1 TABLET BY MO UTH EVERY DAY Oral; Duration: 30 Active Joint Health Active Problems Problem Type SNOMED Code ICD Code Onset Dates Problem Status W/U Status Risk Notes Problem Blood in stool (421221773) Blood in stool (K92.1) Active confirmed Problem Gastroesophageal reflux disease without esophagitis (749571451) Gastroesophageal reflux disease without esophagitis (K21.9) Active confirmed Problem Family History of Cancer of Colon (Situation) (756138243) Family history of colon cancer (Z80.0) Active confirmed Problem Hemorrhage of rectum and anus (292274089) Rectal bleed (K62.5) Active confirmed Plan Of Treatment Future Test Test Name Order Date COLONOSCOPY 02/18/2012 COLONOSCOPY 06/30/2017 Insurance Providers Payer Name Payer Address Payer Phone Subscriber Number Group Number Insured Name Patient Relationship to Insured Coverage Start Date Coverage End Date [facility] [address] [place] [address] [phone] [id number] MUSTAPHA RIVER Self - patient is the insured Medicare of [place] [address] [place] [address] [id number] MUSTAPHA RIEVR Self - patient is the insured Medical (General) History Medical History History ICD Code Gastroesophageal reflux--neg EGD in 2001 --small HH Hypertension Hyperlipidemia Denies ID,DM,CVA,Lung disease,renal dise ase Afib---had reported successf ul ablation in [place] in 2012--sees Dr. Vicente----he describes some type of adverse reaction to sedation during his ablation procedure and was told to avoid medications including fentanyl negative screening colonosco pies in 2001, 2006, and 04/2012, other than hyperplastic polyps, diverticulosis, and internal hemorrhoids Surgical History Surgery Date(Month/Year) Broken ankle
--- OUTSIDE RECORDS SUMMARY | 2025-01-04 09:28 | XMS_ITS | Clinical Summary ---
Author Organization [facility] Address [address] [facility] [address] [place] [address] Phone Care Team Providers Care Fondant Machine Operator Name Role Phone Phil Mccullough MD Primary [...] Medical Devices Not on file Care Teams Fondant Machine Operator Relationship Specialty Start Date End Date Phil Mccullough MD PCP - General 07/27/14 Additional Source Comments The information contained in this document represents components of the legal health record. It is not the complete legal health record.[facility]
== END 2025-01-04 09:08 | disposition home or self-care (01) ==
LOC: HO.ACS 08:53
PROVIDERS: PCP Family Medicine; Visit Provider Internal Medicine Medical Oncology
DX: Z79.01 Long term (current) use of anticoagulants (principal)

== ENCOUNTER → 2025-01-04 08:53 | Outpatient (BNVA) | payer MEDICARE, SELFPAY | PROVIDERS: PCP Family Medicine; Visit Provider Internal Medicine Medical Oncology | DX: I48.20 Chronic atrial fibrillation, unspecified (principal); Z79.01 Long term (current) use of anticoagulants; Z51.81 Encounter for therapeutic drug level monitoring | CPT/HCPCS: 85610; 99211 ==

== ENCOUNTER 2025-01-18 09:32 | Outpatient (AMB) | payer MEDICARE, SELFPAY ==
[2025-01-18 09:45] LABS: Prothrombin Time Whole Bld POC 44.4 sec (11.1-13.5); ~PT, ~INR - Anti Coag Clinic 3.7 (0.9-1.1)
--- NOTE | 2025-01-18 10:20 | MHC.OFFVISCO ---
Intake Intake Visit Reasons: Anticoagulation Allergies fentanyl (FENTANYL) Allergy (Severe, Verified 01/18/25 09:36) ANAPHYLAXIS hydromorphone (From Dilaudid) Allergy (Severe, Verified 01/18/25 09:36) Hypotension protamine (PROTAMINE) Allergy (Severe, Verified 01/18/25 09:36) ANAPHYLAXIS rocuronium (ROCURONIUM) Allergy (Severe, Verified 01/18/25 09:36) ANAPHYLAXIS sevoflurane (SEVOFLURANE) Allergy (Severe, Verified 01/18/25 09:36) ANAPHYLAXIS terazosin Allergy (Severe, Verified 01/18/25 09:36) Hypotension thiopental (From Pentothal) Allergy (Severe, Verified 01/18/25 09:36) Agitated Medication List - Last Reconciled 01/18/25 by Morena Durand RN amiodarone 100 mg PO DAILY ascorbate calcium (vitamin C) 500 mg PO DAILY atorvastatin 80 mg PO DAILY B-complex with vitamin C 1 tab PO DAILY dutasteride 0.5 mg PO DAILY 90 days furosemide 40 mg PO DAILY gabapentin 200 mg (2 x 100 mg) PO BEDTIME glucosamine HCl 500 mg PO BID losartan 50 mg PO DAILY melatonin 10 mg PO BEDTIME PRN metoprolol succinate ER 100 mg PO DAILY multivitamin (Multiple Vitamins tablet) 1 tab PO DAILY pantoprazole 40 mg PO DAILY potassium chloride ER 10 mEq PO DAILY 90 days testosterone 2 pumps topically one pump to each shoulder daily; 28 days testosterone 2 pumps transdermal DAILY 30 days warfarin 5 mg See Protocol PO DAILY zolpidem 10 mg PO BEDTIME PRN Nursing Note NO CP,SOB,DIET/MED CHANGES,FALLS OR SX OF BLEEDING. HOLD WARFARIN TODAY THEN REDUCE WEEKLY DOSE AND FOLLOW-UP IN WEEKS GOOD UNDERSTANDING OF DOSING INSTR. Anti-Coag Initial Assessment Social Hx Patient Tobacco Use Status: Former Tobacco user Tobacco use type: Cigarette Alcohol intake frequency: does not drink Coding Level of Care Code Est Patient Level 1 Diagnoses Current use of anticoagulant therapy Z79.01 Results AMB INR Fingerstick AMB INR Fingerstick 3.7 Last Edit by Morena Durand RN on 01/18/25 09:44 Assessment & Plan Assessment & Plan (1) Current use of anticoagulant therapy: Code(s): Z79.01 - half-way (current) use of anticoagulants Category: Medical
--- OUTSIDE RECORDS SUMMARY | 2025-01-18 11:20 | XMS_ITS | Clinical Summary ---
Author Organization [facility] Address [address] [facility] [address] [place] [address] Phone Care Team Providers Care Assistant Pressman Name Role Phone Phil Mccullough MD Primary [...] Medical Devices Not on file Care Teams Assistant Pressman Relationship Specialty Start Date End Date Phil Mccullough MD PCP - General 07/27/14 Additional Source Comments The information contained in this document represents components of the legal health record. It is not the complete legal health record.[facility]
--- OUTSIDE RECORDS SUMMARY | 2025-01-18 11:21 | XMS_ITS | Patient Health Record ---
Author Organization [facility] Address [address] [place] [address] Care Team Providers Care Facility Maintenance Mechanic Name Role Phone Елена(inactive) Shon ORO Primary Care Provider U Sotero Nieto Unavailable [phone] Allergies Allergen (clinical drug ingredient) Drug/Non Drug Allergy documented on EMR Reaction Allergy Type Onset Date Status sevoflurane Sevoflurane Unknown Drug Allergy Act [place] protamine sulfate (PRISON) Protamine Sulfate Unknown Drug All ergy Active [...] ONCE A DAY Oral; Duration: 30 Active [place] 3 Active Warfarin Sodium 5 MG TAKE 1 TABLET BY MO UTH EVERY DAY Oral; Duration: 30 Active Joint Health Active Problems Problem Type SNOMED Code ICD Code Onset Dates Problem Status W/U Status Risk Notes Problem Blood in stool (171936583) Blood in stool (K92.1) Active confirmed Problem Gastroesophageal reflux disease without esophagitis (323603498) Gastroesophageal reflux disease without esophagitis (K21.9) Active confirmed Problem Family History of Cancer of Colon (Situation) (998230069) Family history of colon cancer (Z80.0) Active confirmed Problem Hemorrhage of rectum and anus (932589391) Rectal bleed (K62.5) Active confirmed Plan Of Treatment Future Test Test Name Order Date COLONOSCOPY 02/18/2012 COLONOSCOPY 06/30/2017 Insurance Providers Payer Name Payer Address Payer Phone Subscriber Number Group Number Insured Name Patient Relationship to Insured Coverage Start Date Coverage End Date [facility] [address] [place] [address] [id number] MUSTAPHA RIVER Self - patient is the insured Medicare of [place] [address] [place] [address] [id number] MUSTAPHA RIVER Self - patient is the insured Medical (General) History Medical History History ICD Code Gastroesophageal reflux--neg EGD in 2001 --small HH Hypertension Hyperlipidemia Denies MD,DM,CVA,Lung disease,renal dise ase Afib---had reported successf ul ablation in [place] in 2012--sees Dr. Vicente----he describes some type of adverse reaction to sedation during his ablation procedure and was told to avoid medications including fentanyl negative screening colonosco pies in 2001, 2006, and 04/2012, other than hyperplastic polyps, diverticulosis, and internal hemorrhoids Surgical History Surgery Date(Month/Year) Broken ankle
== END 2025-01-18 10:22 | disposition home or self-care (01) ==
LOC: HO.ACS 09:32
PROVIDERS: PCP Family Medicine; Visit Provider Internal Medicine Medical Oncology
DX: Z79.01 Long term (current) use of anticoagulants (principal)

== ENCOUNTER → 2025-01-18 09:32 | Outpatient (BNVA) | payer MEDICARE, SELFPAY | PROVIDERS: PCP Family Medicine; Visit Provider Internal Medicine Medical Oncology | DX: I48.20 Chronic atrial fibrillation, unspecified (principal); Z79.01 Long term (current) use of anticoagulants; Z51.81 Encounter for therapeutic drug level monitoring | CPT/HCPCS: 85610; 99211 ==

== ENCOUNTER 2025-02-09 10:16 | Outpatient (AMB) | payer MEDICARE, SELFPAY ==
[2025-02-09 10:28] LABS: Prothrombin Time Whole Bld POC 40.5 sec (11.1-13.5); ~PT, ~INR - Anti Coag Clinic 3.4 (0.9-1.1)
--- NOTE | 2025-02-09 10:36 | MHC.OFFVISCO ---
Intake Intake Visit Reasons: Anticoagulation Allergies fentanyl (FENTANYL) Allergy (Severe, Verified 02/09/25 10:22) ANAPHYLAXIS hydromorphone (From Dilaudid) Allergy (Severe, Verified 02/09/25 10:22) Hypotension protamine (PROTAMINE) Allergy (Severe, Verified 02/09/25 10:22) ANAPHYLAXIS rocuronium (ROCURONIUM) Allergy (Severe, Verified 02/09/25 10:22) ANAPHYLAXIS sevoflurane (SEVOFLURANE) Allergy (Severe, Verified 02/09/25 10:22) ANAPHYLAXIS terazosin Allergy (Severe, Verified 02/09/25 10:22) Hypotension thiopental (From Pentothal) Allergy (Severe, Verified 02/09/25 10:22) Agitated Medication List - Last Reconciled 02/09/25 by Jane Stafford RN amiodarone 100 mg PO DAILY ascorbate calcium (vitamin C) 500 mg PO DAILY atorvastatin 80 mg PO DAILY B-complex with vitamin C 1 tab PO DAILY dutasteride 0.5 mg PO DAILY 90 days furosemide 40 mg PO DAILY gabapentin 200 mg (2 x 100 mg) PO BEDTIME glucosamine HCl 500 mg PO BID losartan 50 mg PO DAILY melatonin 10 mg PO BEDTIME PRN metoprolol succinate ER 100 mg PO DAILY multivitamin (Multiple Vitamins tablet) 1 tab PO DAILY pantoprazole 40 mg PO DAILY potassium chloride ER 10 mEq PO DAILY 90 days tamsulosin 0.8 mg (2 x 0.4 mg) PO BEDTIME 90 days testosterone 2 pumps topical DAILY 30 days warfarin 5 mg See Protocol PO DAILY zolpidem 10 mg PO BEDTIME PRN Nursing Note INR: 3.4 out of therapeutic range of 2-3 Medications and supplements reviewed Patient status: no changes Medications or supplements: no changes Diet: usual diet for pt Denies any signs and symptoms of bleeding or clotting or unusual bruising Bleeding, bruising, clotting discussed Nutritional guidance given: to have a serving of greens today Dose: weekly dose decreased to 2.5mg X 6 days and 5mg X 1 day then starting next week, he will take 2.5mg X 5 days and 5mg X 2 days (Mon & Thurs) F/U INR Date: 2 weeks?? Patient verbalizing understanding of instructions given. Anti-Coag Initial Assessment Social Hx Patient Tobacco Use Status: Former Tobacco user Tobacco use type: Cigarette Alcohol intake frequency: does not drink Coding Level of Care Code Est Patient Level 1 Diagnoses Current use of anticoagulant therapy Z79.01 Results AMB INR Fingerstick AMB INR Fingerstick 3.4 Last Edit by Jane Stafford RN on 02/09/25 10:28 interface delay Assessment & Plan Assessment & Plan (1) Current use of anticoagulant therapy: Code(s): Z79.01 - emt intermediate (current) use of anticoagulants Category: Medical
--- OUTSIDE RECORDS SUMMARY | 2025-02-09 15:04 | XMS_ITS | Clinical Summary ---
Author Organization [facility] Address [address] [facility] [address] [place] [address] Phone Care Team Providers Care Roving Hauler Name Role Phone Phil Mccullough MD Primary [...] on patient's age to complete this topic IPV VACCINES Aged Out No longer eligi ble based on patient's age to complete this topic MENINGOCOCCAL VACCINES (ACWY) Aged Out No longer eligible based on patient's age to complete this topic MENINGOCOCCAL VACCINES (B) Aged Out N o longer eligible based on patient's age to complete this topic Medical Devices Not on file Care Teams Roving Hauler Relationship Specialty Start Date End Date Phil Mccullough MD PCP - General 07/27/14 Additional Source Comments The information contained in this document represents components of the legal health record. It is not the complete legal health record.[facility]
== END 2025-02-09 11:03 | disposition home or self-care (01) ==
LOC: HO.ACS 10:16
PROVIDERS: PCP Family Medicine; Visit Provider Internal Medicine Medical Oncology
DX: Z79.01 Long term (current) use of anticoagulants (principal)

== ENCOUNTER → 2025-02-09 10:16 | Outpatient (BNVA) | payer MEDICARE, SELFPAY | PROVIDERS: PCP Family Medicine; Visit Provider Internal Medicine Medical Oncology | DX: Z79.01 Long term (current) use of anticoagulants (principal) | CPT/HCPCS: 85610; 99211 ==

== ENCOUNTER 2025-02-23 11:10 | Outpatient (AMB) | payer MEDICARE, SELFPAY ==
--- NOTE | 2025-02-23 11:27 | MHC.OFFVISCO ---
Intake Intake Visit Reasons: Anticoagulation Allergies fentanyl (FENTANYL) Allergy (Severe, Verified 02/23/25 11:12) ANAPHYLAXIS hydromorphone (From Dilaudid) Allergy (Severe, Verified 02/23/25 11:12) Hypotension protamine (PROTAMINE) Allergy (Severe, Verified 02/23/25 11:12) ANAPHYLAXIS rocuronium (ROCURONIUM) Allergy (Severe, Verified 02/23/25 11:12) ANAPHYLAXIS sevoflurane (SEVOFLURANE) Allergy (Severe, Verified 02/23/25 11:12) ANAPHYLAXIS terazosin Allergy (Severe, Verified 02/23/25 11:12) Hypotension thiopental (From Pentothal) Allergy (Severe, Verified 02/23/25 11:12) Agitated Medication List - Last Reconciled 02/23/25 by Jeannie Leger RN amiodarone 100 mg PO DAILY ascorbate calcium (vitamin C) 500 mg PO DAILY atorvastatin 80 mg PO DAILY B-complex with vitamin C 1 tab PO DAILY dutasteride 0.5 mg PO DAILY 90 days furosemide 40 mg PO DAILY gabapentin 200 mg (2 x 100 mg) PO BEDTIME glucosamine HCl 500 mg PO BID losartan 50 mg PO DAILY melatonin 10 mg PO BEDTIME PRN metoprolol succinate ER 100 mg PO DAILY multivitamin (Multiple Vitamins tablet) 1 tab PO DAILY pantoprazole 40 mg PO DAILY potassium chloride ER 10 mEq PO DAILY 90 days tamsulosin 0.8 mg (2 x 0.4 mg) PO BEDTIME 90 days testosterone 2 pumps topical DAILY 30 days warfarin 5 mg See Protocol PO DAILY zolpidem 10 mg PO BEDTIME PRN Nursing Note INR: 2.2 in therapeutic range Medications and supplements reviewed No changes in health, diet, medications, or supplements, Denies any signs and symptoms of bleeding or bruising or clotting. Bleeding, bruising, clotting discussed Nutritional guidance given Dose: Keep same dose 5mg x 2 days/ 2.5mg x 5 days F/U INR: 1 month Patient verbalizes understanding of instructions given Anti-Coag Initial Assessment Social Hx Patient Tobacco Use Status: Former Tobacco user Tobacco use type: Cigarette Alcohol intake frequency: does not drink Coding Level of Care Code Est Patient Level 1 Diagnoses Current use of anticoagulant therapy Z79.01 Results AMB INR Fingerstick AMB INR Fingerstick 2.2 Last Edit by Jeannie Leger RN on 02/23/25 11:20 Assessment & Plan Assessment & Plan (1) Current use of anticoagulant therapy: Code(s): Z79.01 - shelter (current) use of anticoagulants Category: Medical
[2025-02-23 11:56] LABS: Prothrombin Time Whole Bld POC 26.0 sec (11.1-13.5); ~PT, ~INR - Anti Coag Clinic 2.2 (0.9-1.1)
== END 2025-02-23 11:29 | disposition home or self-care (01) ==
LOC: HO.ACS 11:10
PROVIDERS: PCP Family Medicine; Visit Provider Internal Medicine Medical Oncology
DX: Z79.01 Long term (current) use of anticoagulants (principal)

== ENCOUNTER → 2025-02-23 11:10 | Outpatient (BNVA) | payer MEDICARE, SELFPAY | PROVIDERS: PCP Family Medicine; Visit Provider Internal Medicine Medical Oncology | DX: I48.20 Chronic atrial fibrillation, unspecified (principal); Z51.81 Encounter for therapeutic drug level monitoring; Z79.01 Long term (current) use of anticoagulants | CPT/HCPCS: 85610; 99211 ==

== ENCOUNTER 2025-03-02 09:59 | Outpatient (AMB) | payer MEDICARE, SELFPAY ==
--- NOTE | 2025-03-02 10:06 | MHC.PC.OV ---
Vital Signs 03/02/25 10:26 Height 5 ft 8 in Weight 231 lb 6 oz BMI 35.2 BP 122/74 Blood Pressure Location Rt brachial Position Sitting Respiration 17 Pulse 62 Pulse Source Pulse Oximeter Temp 97.7 F Temp Source Oral Pulse Oximetry (%) 96 Oxygen Delivery Method Room Air Intake Visit Reasons: CPE/CAITLYN Croke - see comments Intake Note: Patient is transferring care from [facility]. 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 Accompanied by: Self / Same As Patient Allergies fentanyl (FENTANYL) Allergy (Severe, Verified 03/02/25 10:25) ANAPHYLAXIS hydromorphone (From Dilaudid) Allergy (Severe, Verified 03/02/25 10:25) Hypotension protamine (PROTAMINE) Allergy (Severe, Verified 03/02/25 10:25) ANAPHYLAXIS rocuronium (ROCURONIUM) Allergy (Severe, Verified 03/02/25 10:25) ANAPHYLAXIS sevoflurane (SEVOFLURANE) Allergy (Severe, Verified 03/02/25 10:25) ANAPHYLAXIS terazosin Allergy (Severe, Verified 03/02/25 10:25) Hypotension thiopental (From Pentothal) Allergy (Severe, Verified 03/02/25 10:25) Agitated Medication List - Last Reconciled 03/02/25 by Phil Bishop MD amiodarone 100 mg PO DAILY ascorbate calcium (vitamin C) 500 mg PO DAILY atorvastatin 80 mg PO DAILY B-complex with vitamin C 1 tab PO DAILY dutasteride 0.5 mg PO DAILY 90 days furosemide 40 mg PO DAILY gabapentin 200 mg (2 x 100 mg) PO BEDTIME 90 days glucosamine HCl 500 mg PO BID losartan 50 mg PO DAILY melatonin 10 mg PO BEDTIME PRN metoprolol succinate ER 100 mg PO DAILY multivitamin (Multiple Vitamins tablet) 1 tab PO DAILY pantoprazole 40 mg PO DAILY potassium chloride ER 10 mEq PO DAILY 90 days simethicone (Gas Relief (simethicone)) 80 mg PO TID-QID PRN 90 days tamsulosin 0.8 mg (2 x 0.4 mg) PO BEDTIME 90 days testosterone 2 pumps topical DAILY 30 days warfarin 5 mg See Protocol PO DAILY zolpidem 10 mg PO BEDTIME PRN Tobacco use date assessed: 03/02/25 Fall risk assessment: No Falls in past year Last assessed Fall Risk: 03/02/25 Dental Screening Dental Screen Date: 03/02/25 Did you have a dental visit in the last 12 months?: Yes Did you have a dental problem in the last 6 months where you did not have access to dental care?: No Was dental information given to patient?: Patient has dentist HPI CPE/CAITLYN Schultz - see comments HPI Details New Patient/Transfer of Care ?? Prior PCP:? Dr Jose Last office visit/CPE:? Acute issue(s):? Est care Needs refills ?? PMHx:?a-fib - on Warfarin, HTN, HFpEF, Hypogonadism, SocHx: Quit Cigs 50 yrs, Quit EtOH 20 yrs ago. PFSH Medical History Prediabetes (HFpEF) heart failure with preserved ejection fraction Paroxysmal atrial fibrillation HTN (hypertension) History of cardioversion Benign prostatic hyperplasia with post-void dribbling Hypogonadism in male Surgical History History of penile implant History of cardiac radiofrequency ablation (RFA) (~2015) Hx of endoscopy Hx of colonoscopy (~09/30/17) Family History Father No problems noted. Mother CVD (cardiovascular disease) Heart murmur Social History (Updated 03/02/25 @ 10:26 by Kyaw Pisano CMA) Household Members: Spouse Housing: House Are you a primary congregational care pastor to a significant other at home: No Do you presently have visiting nurse or other home services: No 75 years or older and lives alone: No Alcohol intake: never Patient Tobacco Use Status: Former Tobacco user Tobacco use type: Cigarette e-Cigarette/Vaping Use: Never Used Second Hand Smoke Exposure: No service: No Current occupational status: retired Current occupation: Rt handed Cognitive needs: No Hearing needs: No Vision needs: No Questionnaire PHQ-9 Over the last 2 weeks, how often have you been bothered by any of the following problems? 1. Little interest or pleasure in doing things: not at all 2. Feeling down, depressed, or hopeless: not at all 3. Trouble falling or staying asleep, or sleeping too much: not at all 4. Feeling tired or having little energy: not at all 5. Poor appetite or overeating: not at all 6. Feeling bad about yourself - or that you are a failure or have let yourself or your family down: not at all 7. Trouble concentrating on things, such as reading the newspaper or watching television: not at all 8. Moving or speaking so slowly that other people could have noticed. Or the opposite - being so fidgety or restless that you have been moving around a lot more than usual: not at all 9. Thoughts that you would be better off or of hurting yourself in some way: not at all Total score: 0 Depression Screening Interpretation: Negative Depression Screening Done: Yes 00429 - PHQ-9 Billing: Yes Source: Developed by Drs. Sotero Henderson, Aria Givens, Jamar Wheatley and colleagues, with an educational miesha from [employer]. Thrive Questionnaire Date Thrive assessed: 03/02/25 I am a: Patient What is your living situation today?: I have a steady place to live Within the past 12 months, did the food you bought not last and you didn't have the money to get more?: Never true Within the past 12 months, did you worry whether your food would run out before you got money to buy more?: Never true Do you have trouble paying for medicines?: No Do you have trouble getting transportation to medical appointments?: No Do you have trouble paying your heating and electricity bill?: No Do you have trouble taking care of your child, family member or friend?: No Do you have trouble with day-to-day activities such as bathing, preparing meals, shopping, managing finances, etc.?: No Are you currently unemployed and looking for a job?: No Are you interested in more education?: No Please select the resources that you would like help with: None Currently or been in a relationship where the following occur: No concerns reported THRIVE Score: 0 AUDIT C Alcohol Use Questionnaire (AUDIT-C) 1. How often do you have a drink containing alcohol?: Never Total Score: 0 RICHA-7 AMB Questionnaire RICHA-7 Date RICHA - 7 assessed: 03/02/25 Feeling nervous, anxious, or on edge: 0 = Not at all Not being able to stop or control worryin = Not at all Worrying too much about different things: 0 = Not at all Trouble relaxin = Not at all Being so restless that it is hard to sit still: 0 = Not at all Becoming easily annoyed or irritable: 0 = Not at all Feeling afraid as if something awful might happen: 0 = Not at all Total RICHA-7 score (0-4 normal; 5-9 mild; 10-14 moderate; 15-21 severe): 0 Source: Developed by Drs. Sotero Henderson, Aria Givens, Jamar Wheatley and colleagues, with an educational miesha from [employer]. RICHA-7 Assessment Billing RICHA-7 Assessment Tool: RICHA-7 Assessment 29703 Review of Systems Const Denies chills, Denies fatigue, Denies fever(s), Denies headache(s) and Denies weakness ENT Denies dizziness and Denies headache(s) Card Denies chest pain, Denies lightheadedness, Denies dyspnea and Denies other (Palpitations) Resp Denies cough, Denies dyspnea, Denies wheezing and Denies other ( shortness of breath) Musc Denies numbness and Denies tingling Neuro Denies dizziness, Denies headache(s), Denies numbness, Denies tingling, Denies paresthesias and Denies weakness Psych Denies anxiety and Denies depression Endo Denies fatigue Aller/Immun Denies wheezing Physical exam (Primary Care) Vital Signs: Last Vital Signs Temp 97.7 F 03/02/25 10:26 Pulse 62 03/02/25 10:26 Resp 17 03/02/25 10:26 BP 122/74 03/02/25 10:26 Pulse Ox 96 03/02/25 10:26 Oxygen Delivery Method Room Air 03/02/25 10:26 BMI result Body Mass Index 35.2 Tobacco/Smoking Status: Tobacco use Status Tobacco use date assessed 03/02/25 03/02/25 10:29 Patient Tobacco Use Status Former Tobacco user 03/02/25 10:26 Tobacco use type Cigarette 03/02/25 10:26 e-Cigarette/Vaping Use Never Used 03/02/25 10:26 PHQ-9: PHQ-9 Score PHQ-9: Total score 0 03/02/25 11:00 Depression Screening Interpretation: Negative Thrive Assessment: Date of Thrive Assessment Date Thrive assessed 03/02/25 03/02/25 10:07 Currently or been in a relationship where the following occur: No concerns reported Const General: no acute distress and well developed Nutritional Appearance: well nourished Orientation/consciousness: patient oriented x3 HENMT Head: Yes normocephalic and Yes atraumatic Eyes General: appearance normal, both eyes and all related structures Pupils: Equal, round and reactive pupils present EOM: EOMs intact bilaterally Resp Effort & Inspection: normal respiratory effort Auscultation: clear to auscultation bilaterally Cardio Rate: regular rate Rhythm: regular rhythm Heart sounds: S1 normal heart sound present, S2 normal heart sound present, no gallops, no murmurs and no rubs Neuro General: patient oriented x3 and gait normal Cranial nerves: Yes Equal, round and reactive pupils present Psych Affect: normal affect Results AMB Hemoglobin A1c AMB Hemoglobin A1c 6.3 % Last Edit by Kyaw Pisano CMA on 03/02/25 10:43 Results Reviewed Results Reviewed: Laboratory Last Values Hgb A1c (Clinic) 6.3 % (4.0-6.0) H 03/02/25 10:42 Coding Level of Care Code New Pt Level 4 (39551) Diagnoses HTN (hypertension) I10 (HFpEF) heart failure with preserved ejection fraction I50.30 Paroxysmal atrial fibrillation I48.0 Current use of anticoagulant therapy Z79.01 Prediabetes R73.03 Laboratory exam ordered as part of routine general medical examination Z00.00 Swelling of lower extremity M79.89 Additional Codes RICHA-7 Assessment Billing - RICHA-7 Assessment Tool: RICHA-7 Assessment 65256 ([id number]) PHQ-9 - 09159 - PHQ-9 Billing: Yes ([id number]) Assessment & Plan Assessment & Plan (1) HTN (hypertension): Code(s): I10 - Essential (primary) hypertension Category: Medical Plan: Blood pressure is well controlled. Goal is less than 130/80 Continue current medication (2) (HFpEF) heart failure with preserved ejection fraction: Code(s): I50.30 - Unspecified diastolic (congestive) heart failure Category: Medical Plan: History of heart failure with preserved ejection fraction Followed by cardiology He is on furosemide Advised a diet low in salt/sodium Maintain appropriate blood pressure rhythm control. Follow-up with Cardiology as recommended (3) Paroxysmal atrial fibrillation: Code(s): I48.0 - Paroxysmal atrial fibrillation Category: Medical Plan: Rhythm controlled on amiodarone Also on warfarin and followed by the anticoagulation clinic Stable (4) Current use of anticoagulant therapy: Code(s): Z79.01 - longterm (current) use of anticoagulants Category: Medical Plan: As above (5) Prediabetes: Code(s): R73.03 - Prediabetes Category: Medical Plan: Will monitor A1c (6) Laboratory exam ordered as part of routine general medical examination: Code(s): Z00.00 - Encounter for general adult medical examination without abnormal findings Category: Medical Plan: Check labs (7) Swelling of lower extremity: Code(s): M79.89 - Other specified soft tissue disorders Category: Medical Plan: Continue furosemide Avoid salt and sodium Elevate legs Plan Patient notes paresthesias when he goes to bed. Possible neuropathy Possible paresthesias secondary to redistributing of fluids when he elevates his legs at bedtime. Advised him to continue to avoid salt and sodium and elevate legs during the daytime Also increased his gabapentin Orders: Orders Comprehensive Foster. Panel Fast Today Z00.00 - Encounter for general adult medical examination without abnormal findings Lipid Panel Today Z00.00 - Encounter for general adult medical examination without abnormal findings Microalbumin, Random (w Creat) Today I10 - Essential (primary) hypertension UA CC w/rflx Micro + Cult Today Z00.00 - Encounter for general adult medical examination without abnormal findings Vitamin D 25-OH Total Today E55.9 - Vitamin D deficiency, unspecified Hemoglobin A1c Today R73.01 - Impaired fasting glucose AMB Hemoglobin A1c Today Z13.9 - Encounter for screening, unspecified Complete Blood Count Auto Diff Today Z00.00 - Encounter for general adult medical examination without abnormal findings Prostate Specific Antigen Scr Today Z12.5 - Encounter for screening for malignant neoplasm of prostate TSH reflex Free T4 Today Z00.00 - Encounter for general adult medical examination without abnormal findings Vitamin B12 and Folate Today E53.8 - Deficiency of other specified B group vitamins Medications: New simethicone (Gas Relief (simethicone)) 80 mg PO TID-QID PRN 60 tabs 3RF abdominal distention 90 days Changed From gabapentin 200 mg (2 x 100 mg) PO BEDTIME 90 caps 1RF To gabapentin 200 mg (2 x 100 mg) PO BEDTIME 180 caps 1RF 90 days
[2025-03-02 10:26] VITALS: BP 122/74; PULSE 62; RESP 17; TEMP 36.5; O2SAT 96; BMI 35.2
== END 2025-03-02 11:24 | disposition home or self-care (01) ==
LOC: HO.HMCFM 10:00
PROVIDERS: PCP Family Medicine; Visit Provider Family Medicine
DX: I10 Essential (primary) hypertension (principal); I50.30 Unspecified diastolic (congestive) heart failure; I48.0 Paroxysmal atrial fibrillation; Z79.01 Long term (current) use of anticoagulants; R73.03 Prediabetes; Z00.00 Encounter for general adult medical examination without abnormal findings; M79.89 Other specified soft tissue disorders; Z13.9 Encounter for screening, unspecified

== ENCOUNTER → 2025-03-02 09:59 | Outpatient (BNVA) | payer MEDICARE, SELFPAY | PROVIDERS: PCP Family Medicine; Visit Provider Family Medicine | DX: I10 Essential (primary) hypertension (principal); I50.30 Unspecified diastolic (congestive) heart failure; I48.0 Paroxysmal atrial fibrillation; R73.03 Prediabetes; M79.89 Other specified soft tissue disorders; Z79.01 Long term (current) use of anticoagulants; Z13.31 Encounter for screening for depression; Z13.39 Encounter for screening examination for other mental health and behavioral disorders | CPT/HCPCS: 83036; 96127; 99202 ==

== ENCOUNTER 2025-03-08 09:45 | Outpatient (REF) | payer MEDICARE, SELFPAY ==
[2025-03-08 10:59] LABS: Hematocrit 46.4 % (42.0-52.0)
--- OUTSIDE RECORDS SUMMARY | 2025-03-08 11:25 | XMS_ITS | Patient Health Record ---
Author Organization [facility] Address [address] [place] [address] Care Team Providers Care Core Blower Operator Name Role Phone Елена(inactive) Shon ORO Primary Care Provider U Sotero Nieto Unavailable [phone] Allergies Allergen (clinical drug ingredient) Drug/Non Drug Allergy documented on EMR Reaction Allergy Type Onset Date Status protamine sulfate (FDC) Protamine Sulfate Unknown Drug All ergy Active sevoflurane Sevoflurane Unknown Drug Allergy Act [place] Reason For Referral No Information Medications Medication SIG (Take, Route, Frequency, Duration) Notes Start Date End Date Status Vitamin C Active Amiodarone HCl 100 MG Tablet TAKE 1 TABLET BY MOUTH ONCE A DAY Oral; Duration: 30 Active Colace Active Losartan Potassium 50 MG Tablet TAKE 1 TABLET EVERY DAY Oral; Duration: 30 Active Garlic Oil Active Atorvastatin Calcium 80 MG Tablet TAKE 1 TABLET BY MOUTH EVERY DAY Oral; Duration: 30 Active Klor-Con 10 10 MEQ Tablet Extended Release TAKE 1 TABLET BY MOUTH ONCE A DAY Oral; Duration: 30 Active Pantoprazole Sodium 40 MG Tablet Delayed Release TAKE 1 TABLET BY MOUTH ONCE A DAY Oral; Duration: 30 Active Furosemide 40 MG Tablet TAKE 2 TABLETS B Y MOUTH ONCE A DAY Oral; Duration: 30 Active AndroGel Pump 20.25 MG/ACT (1.62%) Gel 1 application to skin to affected area in the morning Transdermal Once a day Active Acetaminophen Active Ambien 10 MG Tablet 1 tablet at bedtime as needed Orally Once a day Active Glucosamine Chondr Complex Active Metoprolol Succinate ER 100 MG Tablet Extended Release 24 Hour TAKE 1 TABLET BY MOUTH ONCE A DAY Oral; Duration: 30 Active [place] 3 Active Warfarin Sodium 5 MG Tablet TAKE 1 TABLE T BY MOUTH EVERY DAY Oral; Duration: 30 Active Joint Health Active Social History Social History Additional Details Category Social Info Options Details Miscellaneous: Marital status: Occupation: Retired Section Notes: Nonsmoker; Few beers per day , on average-heavier in the past. Nonsmoker; No alcohol since his cardiac ablation-heavier in the past. Problems Problem Type SNOMED Code ICD Code Onset Dates Problem Status W/U Status Risk Notes Problem Blood in stool (103873370) Blood in stool (K92.1) Active confirmed Problem Gastroesophageal reflux disease without esophagitis (437555912) Gastroesophageal reflux disease without esophagitis (K21.9) Active confirmed Problem Family History of Cancer of Colon (Situation) (442989500) Family history of colon cancer (Z80.0) Active confirmed Problem Hemorrhage of rectum and anus (723966500) Rectal bleed (K62.5) Active confirmed Plan Of Treatment Future Test Test Name Order Date COLONOSCOPY 02/18/2012 COLONOSCOPY 06/30/2017 Insurance Providers Payer Name Payer Address Payer Phone Subscriber Number Group Number Insured Name Patient Relationship to Insured Coverage Start Date Coverage End Date [facility] [address] [place] [phone] [id number] [place] Self - patient is the insured Medicare of [place] [employer] [address] [place] [address] [id number] [place]HA R[place] Self - patient is the insured Medical (General) History Medical History History ICD Code Gastroesophageal reflux--neg EGD in 2001 --small HH Hypertension Hyperlipidemia Denies NM,DM,CVA,Lung disease,renal dise ase Afib---had reported successf ul ablation in [place] in 2012--sees Dr. Vicente----he describes some type of adverse reaction to sedation during his ablation procedure and was told to avoid medications including fentanyl negative screening colonosco pies in 2001, 2006, and 04/2012, other than hyperplastic polyps, diverticulosis, and internal hemorrhoids Surgical History Surgery Date(Month/Year) Broken ankle
--- OUTSIDE RECORDS SUMMARY | 2025-03-08 11:25 | XMS_ITS | Clinical Summary ---
Author Organization [facility] Address [address] [place] [phone] Phone Care Team Providers Care Shift Superintendent Name Role Phone Phil Mccullough MD Primary [...] Medical Devices Not on file Care Teams Shift Superintendent Relationship Specialty Start Date End Date Phil Mccullough MD PCP - General 07/27/14 Additional Source Comments The information contained in this document represents components of the legal health record. It is not the complete legal health record.[facility]
[2025-03-08 12:14] LABS: Prostate Specific Antigen 1.56 ng/mL (<0.05-4.0)
== END 2025-03-08 09:46 ==
LOC: HO.LAB 09:45
PROVIDERS: PCP Family Medicine; Visit Provider Urology
DX: Z12.5 Encounter for screening for malignant neoplasm of prostate (principal); E29.1 Testicular hypofunction
CPT/HCPCS: 36415; 84153; 84403; 85014